=== PATIENT | female | born 1950 | race Caucasian/White ===

== ENCOUNTER 2021-05-06 07:41 | Inpatient (IN) ==
--- NOTE | 2021-05-06 08:11 | Emergency Department Note ---
History of Present Illness General Chief complaint: Altered Mental Status Stated complaint: MENTAL STATUS CHANGES Time Seen by Provider: 05/06/21 07:45 Source: patient Mode of arrival: ambulatory Limitations: no limitations History of Present Illness Provider complaint: Altered mental status This is a 70-year-old female who presents to the ED with a chief complaint of alteration in mental status. The patient comes from [facility]. She reportedly was sent there after being discharged from [facility] for weakness and sepsis secondary to cholangitis. The patient according to the notes was having increased difficulty with swallowing thin liquids the past couple of days. She has had increased confusion according to the family over the weekend, per the nurses notes from [facility]. I did spoke with Dr. Irizarry this morning about the patient. He reports that the patient is normally verbal but was moaning this morning. Seems disoriented. Has a history of COPD. Was to have an ERCP today at [facility]. The patient has not been on her aspirin or Plavix the past day because of the procedure. The patient also has been n.p.o. for her procedure. No additional reports. Patient is unable to provide any additional information as she attempts to talk but is unable to clearly communicate. Home Medications Medication Instructions Recorded Confirmed Type nitroglycerin 0.4 mg sublingual 0.4 mg SL Q5M PRN #25 tab 07/25/19 05/06/21 Rx tablet calcium carbonate 600 mg(1,500 1 tab PO BID #60 tab 08/17/19 05/06/21 Rx mg)-vitamin D3 800 unit chewable tablet albuterol sulfate 90 mcg/actuation 2 puffs INH Q6H PRN 09/22/19 05/06/21 History aerosol inhaler azelastine 137 mcg (0.1 %) nasal 2 sprays INTNAS BID #30 ml 09/22/19 05/06/21 Rx spray aerosol folic acid 1 mg tablet 2 mg PO DAILY #60 tab 02/20/20 05/06/21 Rx bupropion HCl 150 mg 24 hr tablet, See Rx Instructions .ROUTE 04/02/20 05/06/21 Rx extended release .COMPLEX #60 tab ammonium lactate 12 % lotion 1 applic TOPICAL BID PRN #226 g 07/29/20 05/06/21 Rx oxcarbazepine 150 mg tablet 300 mg PO BID #120 tab 10/21/20 05/06/21 Rx ergocalciferol (vitamin D2) 1,250 50,000 unit PO WEEKLY #4 cap 03/10/21 05/06/21 Rx mcg (50,000 unit) capsule clotrimazole 1 % topical cream 1 applic TOPICAL BID #30 g 03/26/21 05/06/21 Rx mupirocin 2 % topical ointment 1 applic TOPICAL BID #22 g 03/26/21 05/06/21 Rx Dextrose 50% 50ml Iv 50 ml IV UD 05/06/21 05/06/21 History amlodipine 2.5 mg PO QAM 05/06/21 05/06/21 History atenolol 25 mg PO QAM 05/06/21 05/06/21 History atorvastatin 80 mg PO HS 05/06/21 05/06/21 History benzonatate 100 mg PO TID PRN 05/06/21 05/06/21 History cyanocobalamin (vitamin B-12) 1,000 mcg PO QAM 05/06/21 05/06/21 History docusate sodium 100 mg PO BID 05/06/21 05/06/21 History famotidine 10 mg PO QAM 05/06/21 05/06/21 History fluticasone propionate [Allergy 2 sprays INTNAS QAM 05/06/21 05/06/21 History Relief (fluticasone)] sawnilflgnk-wdmedajkd-jubpyqot 1 inh INHALATION QAM 05/06/21 05/06/21 History [Trelegy Ellipta] gabapentin [Neurontin] 300 mg PO Q12 05/06/21 05/06/21 History insulin regular human [Humulin R 1 sliding scale dose SUBCUT 05/06/21 05/06/21 History Regular U-100 Insuln] USEASDIRECTD lisinopril 10 mg PO QAM 05/06/21 05/06/21 History loratadine 10 mg PO QAM 05/06/21 05/06/21 History mecobal-levomefolat Ca-B6 phos 1 tab PO QAM 05/06/21 05/06/21 History [Foltanx] pantoprazole 40 mg PO DAILYBB 05/06/21 05/06/21 History sennosides-docusate sodium 1 tab-cap PO QDL PRN 05/06/21 05/06/21 History [Senokot-S] zinc oxide 1 applic TOPICAL BID 05/06/21 05/06/21 History Allergies Allergy/AdvReac Type Severity Reaction Status Date / Time carbamazepine [From Tegretol] AdvReac sleepy anf Verified 05/06/21 08:20 floaty Past Med/Surg History Medical History Acquired claw toe of left foot Acquired hallux valgus of right foot Atherosclerotic peripheral vascular disease Benign essential hypertension Carotid artery narrowing Diabetes mellitus with diabetic polyneuropathy Diastolic dysfunction Esophageal reflux Familial hypercholesterolemia Hallux valgus (acquired), left foot History of esophageal reflux HTN (hypertension) Hypercholesterolemia Myocardial infarction Neuropathy Osteopenia Osteoporosis, postmenopausal PAD (peripheral artery disease) Stage 3 chronic kidney disease Stage 3 chronic kidney disease due to benign hypertension Vitamin B12 deficiency Vitamin D deficiency Surgical History History of arterial bypass of lower extremity History of cardiac cath History of esophagogastroduodenoscopy (EGD) Family History Other No pertinent family history Social History Smoking Status: Unknown if ever smoked Age Started Using Tobacco: 17; Second Hand Exposure: Yes; Hx Alcohol Use: No Hx Substance Use: No Preferred Language: Divehi Communication Ability: Effective Mercury Purifier Required: No Beliefs That Will Affect Care: None marital status: Current Living Situation Comment: Lives with spouse and grandaughter current occupational status: retired Feels Safe at Home: Yes Dental Care, Regularly: No Physical Activity Frequency: Does not Exercise Seatbelt Use: sometimes Sunscreen Use: No (Not outside much) Assistive Devices: Denture - Upper, Denture - Lower, Glasses and Walker Review of Systems Unobtainable due to cognitive status Physical Exam Vital Signs Vital Signs - 24 hr 05/06/21 07:49 05/06/21 08:00 05/06/21 08:13 Temperature 36.8 C Temperature Source Oral Pulse Rate 39 L 63 Pulse Rate from SpO2 Sensor 82 62 Respiratory Rate 20 20 30 H Respiratory Pattern Tachypnea Blood Pressure 84/73 L 87/69 L 87/69 L Blood Pressure Mean 76 75 75 Blood Pressure Position Lying Pulse Oximetry 91 95 96 Oxygen Delivery Method Room Air Sepsis Recent Fever Within 48 Hours No Sepsis New/Unexplained Change in Mental Status Yes Sepsis Action Taken by Nursing Physician Notified 05/06/21 08:30 05/06/21 09:00 05/06/21 09:27 Temperature Temperature Source Pulse Rate 93 H 76 Pulse Rate from SpO2 Sensor 67 66 67 Respiratory Rate 23 22 26 H Respiratory Pattern Blood Pressure 105/52 L Blood Pressure Mean 69 Blood Pressure Position Pulse Oximetry 96 100 96 Oxygen Delivery Method Sepsis Recent Fever Within 48 Hours Sepsis New/Unexplained Change in Mental Status Sepsis Action Taken by Nursing 05/06/21 09:30 Temperature Temperature Source Pulse Rate 96 H Pulse Rate from SpO2 Sensor 69 Respiratory Rate 36 H Respiratory Pattern Blood Pressure 91/65 L Blood Pressure Mean 73 Blood Pressure Position Pulse Oximetry 96 Oxygen Delivery Method Sepsis Recent Fever Within 48 Hours Sepsis New/Unexplained Change in Mental Status Sepsis Action Taken by Nursing CONSTITUTIONAL/VITAL SIGNS: Reviewed / noted above. GENERAL: Non-toxic in appearance. INTEGUMENTARY: Warm, dry, and [place]. HEAD: Normocephalic. EYES: without scleral icterus or trauma. ENT/OROPHARYNX: clear and dry. LYMPHADENOPATHY/NECK: Is supple without lymphadenopathy or meningismus. RESPIRATORY: Lungs clear and slightly diminished. CARDIOVASCULAR: Regular rate and rhythm. GI/ABDOMEN: Soft and nontender. No organomegaly or pulsatile mass. No rebound or guarding. Normal bowel sounds. EXTREMITIES: Warm and well perfused. Pedal edema. NEUROLOGICAL: The patient appears to be chronically bedbound. Does not follow commands. Opens her eyes spontaneously. Attempts to talk but her speech sounds garbled/mumbles. Patient was noticed to move her arms at times but not on command. MUSCULOSKELETAL: Normally developed with good muscle tone. TRIAGE NURSING DOCUMENTATION REVIEWED. Course Administered Medications Dextrose (D10w) 1,000 mls @ 50 mls/hr IV .Q20H [facility] Stop: 06/05/21 09:29 Last Admin: 05/06/21 09:31 Dose: 50 mls/hr Documented by: [id number] Discontinued Medications Sodium Chloride (Nss) 500 mls @ 999 mls/hr IV .Q31M [facility] Stop: 05/06/21 08:45 Last Infusion: 05/06/21 08:41 Dose: 0 mls/hr Documented by: [id number] Admin: 05/06/21 08:00 Dose: 999 mls/hr Documented by: [id number] Cefepime HCl (Maxipime) 2,000 mg in 20 mls @ 5 mls/min IV NOW STA; Protocol Stop: 05/06/21 09:42 Last Admin: 05/06/21 09:45 Dose: 5 mls/min Documented by: [id number] Medical Decision Making Differential Diagnosis Differential includes acute coronary syndrome, myocardial infarction, CVA, TIA, anemia, infection, pneumonia, UTI, pyelonephritis, poor nutrition, dehydration, electrolyte disturbance,hypoglycemia. Medical Records Attestation: I reviewed the patient's medical records. Home Medications Current Medication List: was personally reviewed by me Laboratory Data Attestation: I reviewed the patient's lab results. Result diagrams: 05/06/21 08:17 05/06/21 08:17 Lab Results 05/06/21 05/06/21 05/06/21 Range/Units 08:14 08:17 08:17 WBC 9.24 (4.8-10.8) K/uL RBC 2.37 L (4.2-5.4) M/uL Hgb 8.0 L (12.0-16.0) g/dL Hct 24.3 L (37-47) % MCV 102.5 H (80-100) fL MCH 33.8 (25-34) pg MCHC 32.9 (32-36) g/dL RDW Std Deviation 55.3 H (36.4-46.3) fL RDW Coeff of Allyson 15.0 H (11.5-14.5) % Plt Count 219 (130-400) K/uL MPV 10.3 (7.4-10.4) fL Immature Gran % (Auto) 0.3 % Neut % (Auto) 72.5 % Lymph % (Auto) 13.2 % [place] % (Auto) 12.1 % Eos % (Auto) 1.7 % Baso % (Auto) 0.2 % Neut # (Auto) 6.69 H (1.4-6.5) K/uL Lymph # (Auto) 1.22 (1.2-3.4) K/uL [place] # (Auto) 1.12 H (0.11-0.59) K/uL Eos # (Auto) 0.16 (0-0.5) K/uL Baso # (Auto) 0.02 (0-0.2) K/uL Immature Gran # (Auto) 0.03 H (0.00-0.02) K/uL Sodium 136 (136-145) mmol/L Potassium 4.8 (3.5-5.1) mmol/L Chloride 106 (98-107) mmol/L Carbon Dioxide 23 (21-32) mmol/L Anion Gap 7.0 (3-11) BUN 32 H (7-18) mg/dl Creatinine 2.25 H (0.6-1.2) mg/dl Est Cr Clr Drug Dosing 19.2 ml/min Est GFR ( Amer) 24.6 ml/min Est GFR (Non-Af Amer) 21.2 ml/min BUN/Creatinine Ratio 14.4 (10-20) Glucose 59 L (70-99) mg/dl POC Glucose 67 L* (70-99) mg/dl Lactate (0.4-2.0) mmol/L Calcium 8.4 L (8.5-10.1) mg/dl Magnesium 2.6 H (1.8-2.4) mg/dl Total Bilirubin 1.1 H (0.2-1) mg/dl AST 51 H (15-37) U/L ALT 25 (12-78) U/L Alkaline Phosphatase 89 (45-117) U/L Total Creatine Kinase 478 H (26-192) U/L Troponin I < 0.015 (0-0.045) ng/ml Total Protein 6.3 L (6.4-8.2) gm/dl Albumin 2.1 L (3.4-5.0) gm/dl Globulin 4.2 H (2.5-4.0) gm/dl Albumin/Globulin Ratio 0.5 L (0.9-2) Procalcitonin (0-0.5) ng/ml TSH 1.070 (0.300-4.500) uIu/ml Urine Color Urine Appearance (Clear) Urine pH (4.5-7.5) Ur Specific [place] (1.000-1.030) Urine Protein (Negative) Urine Glucose (UA) (Negative) Urine Ketones (Negative) Urine Blood (Negative) Urine Nitrite (Negative) Urine Bilirubin (Negative) Urine Urobilinogen (Negative) Ur Leukocyte Esterase (Negative) Urine WBC (Auto) (0-5) /hpf Urine RBC (Auto) (0-4) /hpf U Hyaline Cast (Auto) (0-5) /lpf U Epithel Cells (Auto) (0-5) /lpf Urine Bacteria (Auto) (Negative) COVID-19 Eval Order SARS-CoV-2 (PCR) (Negative) 05/06/21 05/06/21 05/06/21 Range/Units 08:28 08:32 09:08 WBC (4.8-10.8) K/uL RBC (4.2-5.4) M/uL Hgb (12.0-16.0) g/dL Hct (37-47) % MCV (80-100) fL MCH (25-34) pg MCHC (32-36) g/dL RDW Std Deviation (36.4-46.3) fL RDW Coeff of Allyson (11.5-14.5) % Plt Count (130-400) K/uL MPV (7.4-10.4) fL Immature Gran % (Auto) % Neut % (Auto) % Lymph % (Auto) % [place] % (Auto) % Eos % (Auto) % Baso % (Auto) % Neut # (Auto) (1.4-6.5) K/uL Lymph # (Auto) (1.2-3.4) K/uL [place] # (Auto) (0.11-0.59) K/uL Eos # (Auto) (0-0.5) K/uL Baso # (Auto) (0-0.2) K/uL Immature Gran # (Auto) (0.00-0.02) K/uL Sodium (136-145) mmol/L Potassium (3.5-5.1) mmol/L Chloride (98-107) mmol/L Carbon Dioxide (21-32) mmol/L Anion Gap (3-11) BUN (7-18) mg/dl Creatinine (0.6-1.2) mg/dl Est Cr Clr Drug Dosing ml/min Est GFR ( Amer) ml/min Est GFR (Non-Af Amer) ml/min BUN/Creatinine Ratio (10-20) Glucose (70-99) mg/dl POC Glucose (70-99) mg/dl Lactate 1.5 (0.4-2.0) mmol/L Calcium (8.5-10.1) mg/dl Magnesium (1.8-2.4) mg/dl Total Bilirubin (0.2-1) mg/dl AST (15-37) U/L ALT (12-78) U/L Alkaline Phosphatase (45-117) U/L Total Creatine Kinase (26-192) U/L Troponin I (0-0.045) ng/ml Total Protein (6.4-8.2) gm/dl Albumin (3.4-5.0) gm/dl Globulin (2.5-4.0) gm/dl Albumin/Globulin Ratio (0.9-2) Procalcitonin 0.27 (0-0.5) ng/ml TSH (0.300-4.500) uIu/ml Urine Color Dark Yellow Urine Appearance Cloudy A (Clear) Urine pH 5.0 (4.5-7.5) Ur Specific [place] 1.015 (1.000-1.030) Urine Protein Negative (Negative) Urine Glucose (UA) Negative (Negative) Urine Ketones Negative (Negative) Urine Blood Negative (Negative) Urine Nitrite Negative (Negative) Urine Bilirubin Negative (Negative) Urine Urobilinogen Negative (Negative) Ur Leukocyte Esterase 1+ H (Negative) Urine WBC (Auto) >30 H (0-5) /hpf Urine RBC (Auto) 0-4 (0-4) /hpf U Hyaline Cast (Auto) 1-5 (0-5) /lpf U Epithel Cells (Auto) >30 H (0-5) /lpf Urine Bacteria (Auto) 4+ H (Negative) COVID-19 Eval Order SARS-CoV-2 (PCR) (Negative) 05/06/21 05/06/21 Range/Units 09:20 09:20 WBC (4.8-10.8) K/uL RBC (4.2-5.4) M/uL Hgb (12.0-16.0) g/dL Hct (37-47) % MCV (80-100) fL MCH (25-34) pg MCHC (32-36) g/dL RDW Std Deviation (36.4-46.3) fL RDW Coeff of Allyson (11.5-14.5) % Plt Count (130-400) K/uL MPV (7.4-10.4) fL Immature Gran % (Auto) % Neut % (Auto) % Lymph % (Auto) % [place] % (Auto) % Eos % (Auto) % Baso % (Auto) % Neut # (Auto) (1.4-6.5) K/uL Lymph # (Auto) (1.2-3.4) K/uL [place] # (Auto) (0.11-0.59) K/uL Eos # (Auto) (0-0.5) K/uL Baso # (Auto) (0-0.2) K/uL Immature Gran # (Auto) (0.00-0.02) K/uL Sodium (136-145) mmol/L Potassium (3.5-5.1) mmol/L Chloride (98-107) mmol/L Carbon Dioxide (21-32) mmol/L Anion Gap (3-11) BUN (7-18) mg/dl Creatinine (0.6-1.2) mg/dl Est Cr Clr Drug Dosing ml/min Est GFR ( Amer) ml/min Est GFR (Non-Af Amer) ml/min BUN/Creatinine Ratio (10-20) Glucose (70-99) mg/dl POC Glucose (70-99) mg/dl Lactate (0.4-2.0) mmol/L Calcium (8.5-10.1) mg/dl Magnesium (1.8-2.4) mg/dl Total Bilirubin (0.2-1) mg/dl AST (15-37) U/L ALT (12-78) U/L Alkaline Phosphatase (45-117) U/L Total Creatine Kinase (26-192) U/L Troponin I (0-0.045) ng/ml Total Protein (6.4-8.2) gm/dl Albumin (3.4-5.0) gm/dl Globulin (2.5-4.0) gm/dl Albumin/Globulin Ratio (0.9-2) Procalcitonin (0-0.5) ng/ml TSH (0.300-4.500) uIu/ml Urine Color Urine Appearance (Clear) Urine pH (4.5-7.5) Ur Specific [place] (1.000-1.030) Urine Protein (Negative) Urine Glucose (UA) (Negative) Urine Ketones (Negative) Urine Blood (Negative) Urine Nitrite (Negative) Urine Bilirubin (Negative) Urine Urobilinogen (Negative) Ur Leukocyte Esterase (Negative) Urine WBC (Auto) (0-5) /hpf Urine RBC (Auto) (0-4) /hpf U Hyaline Cast (Auto) (0-5) /lpf U Epithel Cells (Auto) (0-5) /lpf Urine Bacteria (Auto) (Negative) COVID-19 Eval Order Covid19 at [facility] SARS-CoV-2 (PCR) NEGATIVE (Negative) Imaging Data Attestation: I personally reviewed and interpreted this imaging study as follows: Radiologist's Impression: Chest X-Ray 05/06/21 08:04 SINGLE VIEW CHEST CLINICAL HISTORY: Generalized weakness. FINDINGS: An AP, portable, upright chest radiograph is obtained. No prior studies are available for comparison at the time of dictation. The examination is degraded by portable technique and patient rotation. The heart is mildly enlarged noting atherosclerotic calcification of the thoracic aorta. There is pulmonary vascular congestion. Bilateral interstitial opacities likely represent pulmonary edema. Trace pleural effusions are suspected. No pneumothorax is seen. The skeletal structures are osteopenic. The bony thorax is grossly intact. IMPRESSION: 1. Cardiomegaly with evidence of congestive failure. 2. Bilateral interstitial airspace opacities likely represent pulmonary edema. Correlate clinically for invasive a superimposed infectious/inflammatory pneu monitis. Radiographic follow-up to resolution is recommended. ACT 112: Negative or not required by law. Electronically signed by: Bossman Ibarra M.D. 05/06/2021 8:[address] 05/06/21 08:04 CT head/brain wo con CLINICAL HISTORY: weakness ACUTE CHANGE IN MENTAL STATUS COMPARISON STUDY: No previous studies for comparison. TECHNIQUE: Axial CT of the brain is performed from the vertex to the skull base. IV contrast was not administered for this examination. A dose lowering technique was utilized adhering to the principles of ALARA. CT DOSE: 614.27 mGy.cm FINDINGS: No intra or extra-axial mass lesions are visualized. There is no CT evidence of acute cortical infarction. There is no evidence of midline shift. There is no acute hemorrhage. No calvarial fractures are visualized. There are patchy white matter hypodensities likely on a small vessel basis. These are most pronounced adjacent the anterior horn right lateral ventricle. There is a tiny lacunar infarct within the right basal ganglia, an equivocal tiny lacunar infarct within the left basal ganglia There is no significant hydrocephalus. Mild ventricular asymmetry is likely developmental. There is no evidence of acute sinusitis IMPRESSION: No acute intracranial findings ACT 112: Negative or not required by law. Electronically signed by: Saran Padilla M.D. 05/06/2021 9:43 AM ECG Data Attestation: I personally reviewed and interpreted this ECG as follows: Indication: + weakness Rate (beats per minute): 75 Rhythm: + normal sinus ECG Intervals/blocks: + Normal QT-c ECG ST segments: no ST elevation ECG Findings: no PVCs MDM Narrative Patient presents with an altered mental status. Baseline is unclear. Patient has difficulty swallowing according to the [facility] notes. She has had altered mental status since this past weekend according to family. The patient is unable to verbalize today. She attempts to talk but she mumbles. She has the ability to move her arms independently but does not follow commands. She has some edema in her legs. Abdomen is soft and nontender. Tongue was dry on exam. The patient's hemoglobin today is 8. It was 9 a couple of days ago. Guaiac testing of the patient's stool was guaiac negative. The patient's BUN is 32 and the creatinine is 2.25. This is up from 1.38 on her previous labs here. The patient's blood sugar was dropping during her ED stay. She has been n.p.o. since last night due to the EGD she was supposed to have today. She was started on some D10. Covid test was negative. CT scan of the brain was negative for acute disease. Troponin was negative. Chest x-ray reveals pneumonia versus heart failure. Urine appears to be contaminated with questionable infection. The patient was given IV fluids 1 L here. She was also given IV cefepime. Chest x-ray was suggestive of congestive heart failure although clinically I do not feel the patient was in pulmonary edema. I did speak with the with regards to the patient's speech. He was here in the emergency department. He states that this has been going on for weeks that she is mumbling when she speaks. He states that she even had an evaluation with regards to her speech and nothing was found. Patient will require further inpatient evaluation and care for her anemia and acute kidney injury as well as possible urinary infection. Lactic acid level is negative. Impression & Plan Anemia, Acute kidney injury, Acute UTI, Pneumonia Discharge Plan Visit Data Chief Complaint: Altered Mental Status Stated Complaint: MENTAL STATUS CHANGES ED Provider: Chintan Yoon Discharge Problem: Anemia, Acute kidney injury, Acute UTI, Pneumonia Patient Disposition: Being Evaluated by Hospitalist Forms Stand Alone Forms: [facility], Virtual Emergency Department, Important Visit Information Prescriptions Prescriptions: No Action Caltrate 600 plus D 600 mg (1,500 mg)-800 unit tablet,chewable 1 tab PO BID Qty: 60 RF: 5 folic acid 1 mg tablet 2 mg PO DAILY Qty: 60 RF: 2 ergocalciferol (vitamin D2) 1,250 mcg (50,000 unit) capsule 50,000 unit PO WEEKLY Qty: 4 RF: 1 mupirocin 2 % ointment 1 applic topical BID Qty: 22 RF: 0 clotrimazole 1 % cream 1 applic topical BID Qty: 30 RF: 1 albuterol sulfate 90 mcg/actuation HFA aerosol inhaler 2 puffs INH Q6H PRN (Reason: Shortness Of Breath) RF: 0 azelastine 137 mcg (0.1 %) aerosol,spray 2 sprays INTNAS BID Qty: 30 RF: 2 ammonium lactate 12 % lotion 1 applic topical BID PRN (Reason: dry skin) Qty: 226 RF: 7 bupropion HCl 150 mg tablet extended release 24 hr See Rx Instructions .ROUTE .COMPLEX Qty: 60 RF: 2 nitroglycerin 0.4 mg tablet, sublingual 0.4 mg SL Q5M PRN (Reason: chest pain) Qty: 25 RF: 5 oxcarbazepine [Trileptal] 150 mg tablet 300 mg PO BID Qty: 120 RF: 2 famotidine 10 mg Tablet 10 mg PO QAM RF: 0 sennosides-docusate sodium [Senokot-S] 8.6-50 mg Tablet 1 tab-cap PO QDL PRN (Reason: Constipation) RF: 0 zinc oxide 20 % Ointment 1 applic TOPICAL BID RF: 0 benzonatate 100 mg Capsule 100 mg PO TID PRN (Reason: Cough) RF: 0 pantoprazole 40 mg Tablet,Delayed Release (Dr/Ec) 40 mg PO DAILYBB RF: 0 Humulin R Regular U-100 Insuln 100 unit/mL Solution 1 sliding scale dose SUBCUT USEASDIRECTD RF: 0 docusate sodium 100 mg Capsule 100 mg PO BID RF: 0 gabapentin [Neurontin] 300 mg capsule 300 mg PO Q12 RF: 0 loratadine 10 mg Tablet 10 mg PO QAM RF: 0 Foltanx 3-35-2 mg Tablet 1 tab PO QAM RF: 0 Trelegy Ellipta 100-62.5-25 mcg Blister With Device 1 inh INHALATION QAM RF: 0 Dextrose 50% 50ml Iv solution 50 ml IV UD RF: 0 atorvastatin 80 mg tablet 80 mg PO HS RF: 0 cyanocobalamin (vitamin B-12) 1,000 mcg tablet 1,000 mcg PO QAM RF: 0 amlodipine 2.5 mg tablet 2.5 mg PO QAM RF: 0 lisinopril 10 mg tablet 10 mg PO QAM RF: 0 fluticasone propionate [Allergy Relief (fluticasone)] 50 mcg/actuation spray,suspension 2 sprays INTNAS QAM RF: 0 atenolol 50 mg tablet 25 mg PO QAM RF: 0 Referrals Referrals: [facility] [Primary Care Provider] -
[2021-05-06] MEDS ORDERED: SODIUM CHLORIDE 0.9% 500 ML IV SCH (08:15)
[2021-05-06 08:37] LABS: Basophils # (auto) 0.02 K/uL (0-0.2); Basophils % (auto) 0.2 %; Eosinophils # (auto) 0.16 K/uL (0-0.5); Eosinophils % (auto) 1.7 %; Hematocrit (blood only) 24.3 % (37-47); Immature Granulocytes # (auto) 0.03 K/uL (0.00-0.02); Immature Granulocytes % (auto) 0.3 %; Lymphocytes # (auto) 1.22 K/uL (1.2-3.4); Lymphocytes % (auto) 13.2 %; Mean Corpuscular Hemoglobin 33.8 pg (25-34); Mean Corpuscular Hgb Conc 32.9 g/dL (32-36); Mean Corpuscular Volume 102.5 fL (80-100); Mean Platelet Volume 10.3 fL (7.4-10.4); Monocytes # (auto) 1.12 K/uL (0.11-0.59); Monocytes % (auto) 12.1 %; Neutrophils # (auto) 6.69 K/uL (1.4-6.5); Neutrophils % (auto) 72.5 %; Platelet Count 219 K/uL (130-400); RDW Standard Deviation 55.3 fL (36.4-46.3); Red Blood Count 2.37 M/uL (4.2-5.4); White Blood Count 9.24 K/uL (4.8-10.8)
[2021-05-06 08:56] LABS: Alanine Aminotransferase 25 U/L (12-78); Albumin Level 2.1 gm/dl (3.4-5.0); Aspartate Aminotransferase 51 U/L (15-37); BUN Creatinine Ratio 14.4 (10-20); Blood Urea Nitrogen 32 mg/dl (7-18); Calcium 8.4 mg/dl (8.5-10.1); Carbon Dioxide 23 mmol/L (21-32); Chloride 106 mmol/L (98-107); Creatinine Clr Calc Pharmacy 19.2 ml/min; Est GFR (African American) 24.6 ml/min; Est GFR (Non-African American) 21.2 ml/min; Glucose 59 mg/dl (70-99); Magnesium 2.6 mg/dl (1.8-2.4); Potassium 4.8 mmol/L (3.5-5.1); Sodium 136 mmol/L (136-145)
--- NOTE | 2021-05-06 09:00 | XRay Report ---
SINGLE VIEW CHEST CLINICAL HISTORY: Generalized weakness. FINDINGS: An AP, portable, upright chest radiograph is obtained. No prior studies are available for c omparison at the time of dictation. The examination is degraded by portable technique and patient rot ation. The heart is mildly enlarged noting atherosclerotic calcification of the thoracic aorta. Ther e is pulmonary vascular congestion. Bilateral interstitial opacities likely represent pulmonary edema . Trace pleural effusions are suspected. No pneumothorax is seen. The skeletal structures are osteope juwan. The bony thorax is grossly intact. IMPRESSION: 1. Cardiomegaly with evidence of congestive failure. 2. Bilateral interstitial airspace opacities likely represent pulmonary edema. Correlate clinically f or invasive a superimposed infectious/inflammatory pneumonitis. Radiographic follow-up to resolution is recommended. ACT 112: Negative or not required by law. Electronically signed by: Bossman Ibarra M.D. 05/06/2021 8:58 AM
[2021-05-06 09:07] LABS: Albumin Globulin Ratio 0.5 (0.9-2); Alkaline Phosphatase 89 U/L (45-117); Bilirubin,Total 1.1 mg/dl (0.2-1); Creatine Kinase 478 U/L (26-192); Globulin 4.2 gm/dl (2.5-4.0); Total Protein 6.3 gm/dl (6.4-8.2); Troponin I < 0.015 ng/ml (0-0.045)
[2021-05-06 09:25] LABS: Appearance Urine Cloudy (Clear); Bacteria Urine Automated 4+ (Negative); Bilirubin Urine Negative (Negative); Blood Urine Negative (Negative); Color Urine Dark Yellow; Epithelial Cell Urine Auto >30 /lpf (0-5); Glucose Urine UA Negative (Negative); Ketones Urine Negative (Negative); Leukocyte Esterase Urine 1+ (Negative); Nitrite Urine Negative (Negative); Protein Urine Negative (Negative); RBC Urine Automated 0-4 /hpf (0-4); Specific Gravity Urine 1.015 (1.000-1.030); Urobilinogen Urine Negative (Negative); WBC Urine Automated >30 /hpf (0-5)
[2021-05-06] MEDS ORDERED: DEXTROSE 10% 1,000 ML IV SCH (09:30)
[2021-05-06] MEDS ORDERED: CEFEPIME 2,000 MG/20 ML VIAL IV STA (09:39)
--- NOTE | 2021-05-06 09:44 | CT Scan Report ---
CT head/brain wo con CLINICAL HISTORY: weakness ACUTE CHANGE IN MENTAL STATUS COMPARISON STUDY: No previous studies for comparison. TECHNIQUE: Axial CT of the brain is performed from the vertex to the skull base. IV contrast was not administered for this examination. A dose lowering technique was utilized adhering to the principles of ALARA. CT DOSE: 614.27 mGy.cm FINDINGS: No intra or extra-axial mass lesions are visualized. There is no CT evidence of acute cortical infarc tion. There is no evidence of midline shift. There is no acute hemorrhage. No calvarial fractures ar e visualized. There are patchy white matter hypodensities likely on a small vessel basis. These are most pronounced adjacent the anterior horn right lateral ventricle. There is a tiny lacunar infarct within the right basal ganglia, an equivocal tiny lacunar infarct within the left basal ganglia There is no significant hydrocephalus. Mild ventricular asymmetry is likely developmental. There is no evidence of acute sinusitis IMPRESSION: No acute intracranial findings ACT 112: Negative or not required by law. Electronically signed by: Saran Padilla M.D. 05/06/2021 9:43 AM
--- NOTE | 2021-05-06 11:26 | History & Physical Report ---
Date of Service May 06, 2021 Assessment & Plan (1) Altered mental status: Suspect this is multifactorial as there are multiple other medical issues present that would contribute to this For now, admit to a monitored bed CT scan negative, will check MRI of brain Further treatment as outlined below (2) Pneumonia: Chest x-ray showing bilateral airspace opacities, they suggested that this may be pulmonary edema. However, patient has reported dysphagia with recent procedure, aspiration pneumonia certainly concern I will start antibiotics with Zosyn considering patient's recent healthcare exposures. I will hold off on Vanco for now as MRSA seems less likely and the patient has significant renal insufficiency Sputum culture if possible (3) UTI (urinary tract infection): Patient does have heavily sedimented urine in her Nye Continue hydration with normal saline as outlined Zosyn as noted above, await urine culture results (4) Dysphagia: Patient has recent ERCP with stent placement. Reported that time notes narrowing in the lower third of the main bile duct that was concerning for possible underlying neoplasm Will keep n.p.o. for now Check CT of the chest, abdomen, and pelvis If negative for anatomical issue that would prevent swallowing, can consider speech evaluation and a video swallow depending on the recommendations Some records from [facility] available in our system, will ask for full records to be sent for review (5) Diabetes mellitus with diabetic polyneuropathy: Patient hypoglycemic during her evaluation in ER, may be contribute to her confusion Will place patient on a low sliding scale only for now Keep n.p.o. secondary to reported dysphagia We will hydrate with D5NS, monitor blood sugars (6) Acute kidney injury: May be secondary to prerenal azotemia/dehydration Normal saline infusion as noted above Treatment of urinary tract infection as noted above Hold nephrotoxins, patient was on low-dose lisinopril prior to admission Maintain Nye for now (7) Benign essential hypertension: Hypotensive, IV fluids as above. We will hold off on oral antihypertensives for now History of Present Illness Chief Complaint: Confusion, dysphagia Primary Care Provider: Khalida, [facility] This is a 70-year-old female with past medical history of recent cholangitis, discharged from [facility] that presents today with confusion and dysphagia. Patient cannot provide any history. at bedside and is very pleasant but has limited insight in the patient's medical problems. tells me that the patient was the patient had a [facility] on . At that time she had been admitted with severe sepsis, found to have E. coli/Klebsiella bacteremia. Patient received a full course of Rocephin. At that time, patient had a reported coffee-ground emesis. Work-up for this included an ERCP performed in 04/23, I recommended an EUS approximate 2 weeks after the procedure. There documentation notes some "abnormal cells ". Patient was subsequent discharged home. tells me that the patient was home on 04/28 but had 2 episodes of falls that day. She did seem to be mildly confused at that time. He called EMS but the patient refused to be transported to the hospital at that time. She spent the night sitting on the couch. The next day she told her showed she did in fact need to go to the hospital. At that time, she was transferred to [facility] for rehab. I do not have any documentation of that ER visit I suspect it was not our facility. Patient was being treated at [facility]. Her EUS was scheduled for today and she was kept n.p.o. the night before. The physician at [facility] noted that the patient seemed more confused. Her speech was garbled which she felt was a new finding, although the tells me that her speech has been gradually worsening since her fall with EMS as described above. In addition, she had trouble swallowing any food or liquids over the past 2 days. Because of her multiple medical issues, it was decided the US will be held and the patient be transported to our facility for further evaluation. At our hospital, she was found to be of very confused. She is alert and she does speak and gesture, but she does not follow commands and she is unintelligible. On work-up, she was found to be mildly hypotensive with a blood pressure in the high 90s. She was hypoglycemic, likely secondary to her n.p.o. status for this procedure. There is also question of UTI versus possible pneumonia on imaging. CT scan of the brain was normal. Patient is now being admitted for further work-up and treatment of her multiple medical problems. Allergies Allergy/AdvReac Type Severity Reaction Status Date / Time carbamazepine [From Tegretol] AdvReac sleepy anf Verified 05/06/21 08:20 floaty Home Medications Medication Instructions Recorded Confirmed Type nitroglycerin 0.4 mg sublingual 0.4 mg SL Q5M PRN #25 tab 07/25/19 05/06/21 Rx tablet calcium carbonate 600 mg(1,500 1 tab PO BID #60 tab 08/17/19 05/06/21 Rx mg)-vitamin D3 800 unit chewable tablet albuterol sulfate 90 mcg/actuation 2 puffs INH Q6H PRN 09/22/19 05/06/21 History aerosol inhaler azelastine 137 mcg (0.1 %) nasal 2 sprays INTNAS BID #30 ml 09/22/19 05/06/21 Rx spray aerosol folic acid 1 mg tablet 2 mg PO DAILY #60 tab 02/20/20 05/06/21 Rx bupropion HCl 150 mg 24 hr tablet, See Rx Instructions .ROUTE 04/02/20 05/06/21 Rx extended release .COMPLEX #60 tab ammonium lactate 12 % lotion 1 applic TOPICAL BID PRN #226 g 07/29/20 05/06/21 Rx oxcarbazepine 150 mg tablet 300 mg PO BID #120 tab 10/21/20 05/06/21 Rx ergocalciferol (vitamin D2) 1,250 50,000 unit PO WEEKLY #4 cap 03/10/21 05/06/21 Rx mcg (50,000 unit) capsule clotrimazole 1 % topical cream 1 applic TOPICAL BID #30 g 03/26/21 05/06/21 Rx mupirocin 2 % topical ointment 1 applic TOPICAL BID #22 g 03/26/21 05/06/21 Rx Dextrose 50% 50ml Iv 50 ml IV UD 05/06/21 05/06/21 History amlodipine 2.5 mg PO QAM 05/06/21 05/06/21 History atenolol 25 mg PO QAM 05/06/21 05/06/21 History atorvastatin 80 mg PO HS 05/06/21 05/06/21 History benzonatate 100 mg PO TID PRN 05/06/21 05/06/21 History cyanocobalamin (vitamin B-12) 1,000 mcg PO QAM 05/06/21 05/06/21 History docusate sodium 100 mg PO BID 05/06/21 05/06/21 History famotidine 10 mg PO QAM 05/06/21 05/06/21 History fluticasone propionate [Allergy 2 sprays INTNAS QAM 05/06/21 05/06/21 History Relief (fluticasone)] [id number]-[id number] 1 inh INHALATION QAM 05/06/21 05/06/21 History [Trelegy Ellipta] gabapentin [Neurontin] 300 mg PO Q12 05/06/21 05/06/21 History insulin regular human [Humulin R 1 sliding scale dose SUBCUT 05/06/21 05/06/21 History Regular U-100 Insuln] USEASDIRECTD lisinopril 10 mg PO QAM 05/06/21 05/06/21 History loratadine 10 mg PO QAM 05/06/21 05/06/21 History mecobal-levomefolat Ca-B6 phos 1 tab PO QAM 05/06/21 05/06/21 History [Foltanx] pantoprazole 40 mg PO DAILYBB 05/06/21 05/06/21 History sennosides-docusate sodium 1 tab-cap PO QDL PRN 05/06/21 05/06/21 History [Senokot-S] zinc oxide 1 applic TOPICAL BID 05/06/21 05/06/21 History Past Med/Surg History Medical History Acquired claw toe of left foot Acquired hallux valgus of right foot Atherosclerotic peripheral vascular disease Benign essential hypertension Carotid artery narrowing Diabetes mellitus with diabetic polyneuropathy Diastolic dysfunction Esophageal reflux Familial hypercholesterolemia Hallux valgus (acquired), left foot History of esophageal reflux HTN (hypertension) Hypercholesterolemia Myocardial infarction Neuropathy Osteopenia Osteoporosis, postmenopausal PAD (peripheral artery disease) Stage 3 chronic kidney disease Stage 3 chronic kidney disease due to benign hypertension Vitamin B12 deficiency Vitamin D deficiency Surgical History History of arterial bypass of lower extremity History of cardiac cath History of esophagogastroduodenoscopy (EGD) Family History Other No pertinent family history Social History Smoking Status: Unknown if ever smoked Age Started Using Tobacco: 17; Second Hand Exposure: Yes; Hx Alcohol Use: No Hx Substance Use: No Preferred Language: Frisian Communication Ability: Effective Party Plan Sales Consultant Required: No Beliefs That Will Affect Care: None marital status: Current Living Situation Comment: Lives with spouse and grandaughter current occupational status: retired Feels Safe at Home: Yes Dental Care, Regularly: No Physical Activity Frequency: Does not Exercise Seatbelt Use: sometimes Sunscreen Use: No (Not outside much) Assistive Devices: Denture - Upper, Denture - Lower, Glasses and Walker Review of Systems Review of Systems: Unobtainable due to cognitive status Physical Exam Constitutional: + altered mental status and + frail appearing; no acute distress Verbal and unintelligible Neck: trachea midline, no thyromegaly Respiratory: normal respiratory effort Auscultation: + diminished lung sounds; no crackles, no rales, no rhonchi and no wheezes Limited secondary to vocalization Cardiovascular: Rate/Rhythm: regular rate and regular rhythm Heart Sounds: normal S1 and normal S2 Limited secondary to vocalization Gastrointestinal (Abdomen): Inspection/Auscultation: abdomen normal to inspection and + abdomen distended Percussion/Palpation: abdomen soft; abdomen nontender, no guarding, abdomen not rigid and no hepatosplenomegaly Musculoskeletal: Moving all extremities spontaneously Skin: no rashes, warm and dry Genitourinary: Nye present, heavily sedimented, cloudy yellow urine in bag Results & Data Results & Data ([facility]) Vital Signs (Past 12 Hours) Vital Signs Temp Pulse Resp BP Pulse Ox 05/06/21 09:30 96 H 36 H 91/65 L 96 05/06/21 09:27 76 26 H 105/52 L 96 05/06/21 09:00 22 100 05/06/21 08:30 93 H 23 96 05/06/21 08:13 36.8 C 63 30 H 87/69 L 96 05/06/21 08:00 39 L 20 87/69 L 95 05/06/21 07:49 20 84/[address] L [address] head/brain wo con CLINICAL HISTORY: weakness ACUTE CHANGE IN MENTAL STATUS COMPARISON STUDY: No previous studies for comparison. TECHNIQUE: Axial CT of the brain is performed from the vertex to the skull base. IV contrast was not administered for this examination. A dose lowering technique was utilized adhering to the principles of ALARA. CT DOSE: 614.27 mGy.cm FINDINGS: No intra or extra-axial mass lesions are visualized. There is no CT evidence of acute cortical infarction. There is no evidence of midline shift. There is no acute hemorrhage. No calvarial fractures are visualized. There are patchy white matter hypodensities likely on a small vessel basis. These are most pronounced adjacent the anterior horn right lateral ventricle. There is a tiny lacunar infarct within the right basal ganglia, an equivocal tiny lacunar infarct within the left basal ganglia There is no significant hydrocephalus. Mild ventricular asymmetry is likely developmental. There is no evidence of acute sinusitis IMPRESSION: No acute intracranial findings PG Care Time/CCT Total # of Minutes Spent Total Time Spent with Patient: Total time spent is greater than 50% in coordination of care (as documented) at patient's floor/unit and/or counseling patient: Coding Level of Care Code 83149 Initial Inpt Care Lvl 3 Diagnoses Altered mental status R41.82 Pneumonia J18.9 UTI (urinary tract infection) N39.0 Dysphagia R13.10 Diabetes mellitus with diabetic polyneuropathy E11.42 Acute kidney injury N17.9 Benign essential hypertension I10
[2021-05-06 11:54] LABS: NT Pro B Type Natriuretic Pept 14364 pg/ml (0-900)
[2021-05-06] MEDS ORDERED: SODIUM CHLORIDE 0.9% 1000ML 1,000 ML IV ONE (13:39)
--- NOTE | 2021-05-06 14:01 | Critical Care Consultation ---
Date of Consultation May 06, 2021 Assessment & Plan (1) Severe sepsis: Reason Critically Ill: 70-year-old female with severe sepsis PLAN: Neuro: Acute encephalopathy -Likely metabolic in origin related to sepsis -Unlikely to communicate nutritional needs frail in appearance Elevated ammonia -Consider administration of lactulose Trigeminal neuralgia -Continue oxcarbazepine Resp: Tachypnea -Compensatory CV: Peripheral arterial disease Hyperlipidemia Known carotid stenoses -High-dose statin Hypertension -Atenolol, lisinopril 10 mg Fluids/Renal: Acute on chronic renal failure -Baseline creatinine appears to be around 1.5 -Volume resuscitation ID: Severe sepsis with acute organ dysfunction: Acute kidney injury -Agree with Zosyn GI/Nutrition: Reported biliary mass -Patient had likely been n.p.o. prior to procedure unclear if insulin had been administered Heme: Anemia -Type and screen ordered DVT prophylaxis: Heparin 5000 units every 8 hours Endocrine: Insulin-dependent diabetes mellitus type 2 Hypoglycemia -NG placement would consider trickle feed Vascular access: Peripheral IVs Code Status: DNR/DNI in event of cardiac arrest Disposition: Admit to hospitalist service (2) UTI (urinary tract infection): (3) Diabetes mellitus with diabetic polyneuropathy: (4) Altered mental status: (5) Acute kidney injury: History of Present Illness Reason for Consultation: Severe sepsis and hypotension Requesting Physician: Kahlil Deleon Attending Physician: Kahlil Deleon History of Present Illness Patient is a 70-year-old female with multiple comorbidities including peripheral arterial disease, history of anemia, history of smoking, chronic renal insufficiency, hypertension hypercholesterolemia who presents after being transferred from her acute rehab facility after a subsequent hospitalization associated from a fall with increasing altered mental status. Per the 's report she has been altered for several days. In discussion with hospitalist service the patient had previously been admitted at [facility] for possible urinary sepsis/biliary sepsis symptoms underwent an EGD, she was matute pposed to undergo a EUS for possible pancreatic, biliary lesion she was found today to be hypoglycemic and altered and today was the planned EUS. Discussion with the patient remains altered we discussed long-term prognosis in event of cardiac arrest and he described the patient would not want to situation where she would be placed in intermediate accordingly I feel the chance of good functional outcome in the event of successful resuscitation of cardiac arrest would likely mean intermediate hospitalization and accordingly with joint medical decision-making she will be DNR/DNI in event of cardiac arrest. Patient was hypotensive in the emergency room however she has responded to crystalloid infusion and has been started on broad-spectrum antibiotics her lactate was negative and at this time I believe she has exhibiting signs of severe sepsis and has responded to clinical interventions. Allergies Allergy/AdvReac Type Severity Reaction Status Date / Time carbamazepine [From Tegretol] AdvReac sleepy anf Verified 05/06/21 08:20 floaty Home Medications Medication Instructions Recorded Confirmed Type nitroglycerin 0.4 mg sublingual 0.4 mg SL Q5M PRN #25 tab 07/25/19 05/06/21 Rx tablet calcium carbonate 600 mg(1,500 1 tab PO BID #60 tab 08/17/19 05/06/21 Rx mg)-vitamin D3 800 unit chewable tablet albuterol sulfate 90 mcg/actuation 2 puffs INH Q6H PRN 09/22/19 05/06/21 History aerosol inhaler azelastine 137 mcg (0.1 %) nasal 2 sprays INTNAS BID #30 ml 09/22/19 05/06/21 Rx spray aerosol folic acid 1 mg tablet 2 mg PO DAILY #60 tab 02/20/20 05/06/21 Rx bupropion HCl 150 mg 24 hr tablet, See Rx Instructions .ROUTE 04/02/20 05/06/21 Rx extended release .COMPLEX #60 tab ammonium lactate 12 % lotion 1 applic TOPICAL BID PRN #226 g 07/29/20 05/06/21 Rx oxcarbazepine 150 mg tablet 300 mg PO BID #120 tab 10/21/20 05/06/21 Rx ergocalciferol (vitamin D2) 1,250 50,000 unit PO WEEKLY #4 cap 03/10/21 05/06/21 Rx mcg (50,000 unit) capsule clotrimazole 1 % topical cream 1 applic TOPICAL BID #30 g 03/26/21 05/06/21 Rx mupirocin 2 % topical ointment 1 applic TOPICAL BID #22 g 03/26/21 05/06/21 Rx Dextrose 50% 50ml Iv 50 ml IV UD 05/06/21 05/06/21 History amlodipine 2.5 mg PO QAM 05/06/21 05/06/21 History atenolol 25 mg PO QAM 05/06/21 05/06/21 History atorvastatin 80 mg PO HS 05/06/21 05/06/21 History benzonatate 100 mg PO TID PRN 05/06/21 05/06/21 History cyanocobalamin (vitamin B-12) 1,000 mcg PO QAM 05/06/21 05/06/21 History docusate sodium 100 mg PO BID 05/06/21 05/06/21 History famotidine 10 mg PO QAM 05/06/21 05/06/21 History fluticasone propionate [Allergy 2 sprays INTNAS QAM 05/06/21 05/06/21 History Relief (fluticasone)] [id number] 1 inh INHALATION QAM 05/06/21 05/06/21 History [Trelegy Ellipta] gabapentin [Neurontin] 300 mg PO Q12 05/06/21 05/06/21 History insulin regular human [Humulin R 1 sliding scale dose SUBCUT 05/06/21 05/06/21 History Regular U-100 Insuln] USEASDIRECTD lisinopril 10 mg PO QAM 05/06/21 05/06/21 History loratadine 10 mg PO QAM 05/06/21 05/06/21 History mecobal-levomefolat Ca-B6 phos 1 tab PO QAM 05/06/21 05/06/21 History [Foltanx] pantoprazole 40 mg PO DAILYBB 05/06/21 05/06/21 History sennosides-docusate sodium 1 tab-cap PO QDL PRN 05/06/21 05/06/21 History [Senokot-S] zinc oxide 1 applic TOPICAL BID 05/06/21 05/06/21 History Patient History Medical History Acquired claw toe of left foot Acquired hallux valgus of right foot Atherosclerotic peripheral vascular disease Benign essential hypertension Carotid artery narrowing Diabetes mellitus with diabetic polyneuropathy Diastolic dysfunction Esophageal reflux Familial hypercholesterolemia Hallux valgus (acquired), left foot History of esophageal reflux HTN (hypertension) Hypercholesterolemia Myocardial infarction Neuropathy Osteopenia Osteoporosis, postmenopausal PAD (peripheral artery disease) Stage 3 chronic kidney disease Stage 3 chronic kidney disease due to benign hypertension Vitamin B12 deficiency Vitamin D deficiency Surgical History History of arterial bypass of lower extremity History of cardiac cath History of esophagogastroduodenoscopy (EGD) Family History Other No pertinent family history Social History Smoking Status: Unknown if ever smoked Age Started Using Tobacco: 17; Second Hand Exposure: Yes; Hx Alcohol Use: No Hx Substance Use: No Preferred Language: Argentine Communication Ability: Effective Legal Service Specialist Required: No Beliefs That Will Affect Care: None marital status: Current Living Situation Comment: Lives with spouse and grandaughter current occupational status: retired Feels Safe at Home: Yes Dental Care, Regularly: No Physical Activity Frequency: Does not Exercise Seatbelt Use: sometimes Sunscreen Use: No (Not outside much) Assistive Devices: Denture - Upper, Denture - Lower, Glasses and Walker Review of Systems Review of Systems: Unobtainable due to cognitive status Physical Exam Physical Exam: General: Alert. Disoriented Glascow Coma Scale: Eyes: 4, Verbal 2, Motor 5, Total 11. Skin: Warm, dry, Head: Atraumatic Ears, nose, mouth and throat: airway patent Cardiovascular: Normal peripheral perfusion, tachycardia and irregularly irregular rhythm noted on bedside monitor Respiratory: no respiratory distress, mild tachypnea Gastrointestinal: Non distended Musculoskeletal: No deformity : Nye catheter placement hyperemic skin around the area and excoriations Results & Data Results & Data ([facility]) Vital Signs (Past 12 Hours) Vital Signs Temp Pulse Pulse Resp BP BP Pulse Ox 05/06/21 12:47 60 18 101/62 96 05/06/21 11:50 72 22 106/57 L 96 05/06/21 09:30 96 H 36 H 91/65 L 96 05/06/21 09:27 76 26 H 105/52 L 96 05/06/21 09:00 22 100 05/06/21 08:30 93 H 23 96 05/06/21 08:13 36.8 C 63 30 H 87/69 L 96 05/06/21 08:00 39 L 20 87/69 L 95 05/06/21 07:49 20 84/73 L 91 Laboratory Results 05/06/21 05/06/21 05/06/21 Range/Units 12:44 11:16 11:04 WBC (4.8-10.8) K/uL RBC (4.2-5.4) M/uL Hgb (12.0-16.0) g/dL Hct (37-47) % MCV (80-100) fL MCH (25-34) pg MCHC (32-36) g/dL RDW Std Deviation (36.4-46.3) fL RDW Coeff of Allyson (11.5-14.5) % Plt Count (130-400) K/uL MPV (7.4-10.4) fL Immature Gran % (Auto) % Neut % (Auto) % Lymph % (Auto) % Mclennan % (Auto) % Eos % (Auto) % Baso % (Auto) % Neut # (Auto) (1.4-6.5) K/uL Lymph # (Auto) (1.2-3.4) K/uL Mclennan # (Auto) (0.11-0.59) K/uL Eos # (Auto) (0-0.5) K/uL Baso # (Auto) (0-0.2) K/uL Immature Gran # (Auto) (0.00-0.02) K/uL Sodium (136-145) mmol/L Potassium (3.5-5.1) mmol/L Chloride (98-107) mmol/L Carbon Dioxide (21-32) mmol/L Anion Gap (3-11) BUN (7-18) mg/dl Creatinine (0.6-1.2) mg/dl Est Cr Clr Drug Dosing ml/min Est GFR ( Amer) ml/min Est GFR (Non-Af Amer) ml/min BUN/Creatinine Ratio (10-20) Glucose (70-99) mg/dl POC Glucose 102 H 103 H (70-99) mg/dl Lactate (0.4-2.0) mmol/L Calcium (8.5-10.1) mg/dl Magnesium (1.8-2.4) mg/dl Total Bilirubin (0.2-1) mg/dl AST (15-37) U/L ALT (12-78) U/L Alkaline Phosphatase (45-117) U/L Ammonia 41.0 H Total Creatine Kinase (26-192) U/L Troponin I (0-0.045) ng/ml NT-Pro-B Natriuret Pep (0-900) pg/ml Total Protein (6.4-8.2) gm/dl Albumin (3.4-5.0) gm/dl Globulin (2.5-4.0) gm/dl Albumin/Globulin Ratio (0.9-2) Procalcitonin (0-0.5) ng/ml TSH (0.300-4.500) uIu/ml Urine Color Urine Appearance (Clear) Urine pH (4.5-7.5) Ur Specific Mott (1.000-1.030) Urine Protein (Negative) Urine Glucose (UA) (Negative) Urine Ketones (Negative) Urine Blood (Negative) Urine Nitrite (Negative) Urine Bilirubin (Negative) Urine Urobilinogen (Negative) Ur Leukocyte Esterase (Negative) Urine WBC (Auto) (0-5) /hpf Urine RBC (Auto) (0-4) /hpf U Hyaline Cast (Auto) (0-5) /lpf U Epithel Cells (Auto) (0-5) /lpf Urine Bacteria (Auto) (Negative) COVID-19 Eval Order SARS-CoV-2 (PCR) (Negative) Blood Type Antibody Screen 05/06/21 05/06/21 05/06/21 Range/Units 09:58 09:20 09:20 WBC (4.8-10.8) K/uL RBC (4.2-5.4) M/uL Hgb (12.0-16.0) g/dL Hct (37-47) % MCV (80-100) fL MCH (25-34) pg MCHC (32-36) g/dL RDW Std Deviation (36.4-46.3) fL RDW Coeff of Allyson (11.5-14.5) % Plt Count (130-400) K/uL MPV (7.4-10.4) fL Immature Gran % (Auto) % Neut % (Auto) % Lymph % (Auto) % Mclennan % (Auto) % Eos % (Auto) % Baso % (Auto) % Neut # (Auto) (1.4-6.5) K/uL Lymph # (Auto) (1.2-3.4) K/uL Mclennan # (Auto) (0.11-0.59) K/uL Eos # (Auto) (0-0.5) K/uL Baso # (Auto) (0-0.2) K/uL Immature Gran # (Auto) (0.00-0.02) K/uL Sodium (136-145) mmol/L Potassium (3.5-5.1) mmol/L Chloride (98-107) mmol/L Carbon Dioxide (21-32) mmol/L Anion Gap (3-11) BUN (7-18) mg/dl Creatinine (0.6-1.2) mg/dl Est Cr Clr Drug Dosing ml/min Est GFR ( Amer) ml/min Est GFR (Non-Af Amer) ml/min BUN/Creatinine Ratio (10-20) Glucose (70-99) mg/dl POC Glucose (70-99) mg/dl Lactate (0.4-2.0) mmol/L Calcium (8.5-10.1) mg/dl Magnesium (1.8-2.4) mg/dl Total Bilirubin (0.2-1) mg/dl AST (15-37) U/L ALT (12-78) U/L Alkaline Phosphatase (45-117) U/L Ammonia Total Creatine Kinase (26-192) U/L Troponin I (0-0.045) ng/ml NT-Pro-B Natriuret Pep (0-900) pg/ml Total Protein (6.4-8.2) gm/dl Albumin (3.4-5.0) gm/dl Globulin (2.5-4.0) gm/dl Albumin/Globulin Ratio (0.9-2) Procalcitonin (0-0.5) ng/ml TSH (0.300-4.500) uIu/ml Urine Color Urine Appearance (Clear) Urine pH (4.5-7.5) Ur Specific Mott (1.000-1.030) Urine Protein (Negative) Urine Glucose (UA) (Negative) Urine Ketones (Negative) Urine Blood (Negative) Urine Nitrite (Negative) Urine Bilirubin (Negative) Urine Urobilinogen (Negative) Ur Leukocyte Esterase (Negative) Urine WBC (Auto) (0-5) /hpf Urine RBC (Auto) (0-4) /hpf U Hyaline Cast (Auto) (0-5) /lpf U Epithel Cells (Auto) (0-5) /lpf Urine Bacteria (Auto) (Negative) COVID-19 Eval Order Covid19 at [facility] SARS-CoV-2 (PCR) NEGATIVE (Negative) Blood Type O Positive Antibody Screen NEGATIVE 05/06/21 05/06/21 05/06/21 Range/Units 09:08 08:38 08:32 WBC (4.8-10.8) K/uL RBC (4.2-5.4) M/uL Hgb (12.0-16.0) g/dL Hct (37-47) % MCV (80-100) fL MCH (25-34) pg MCHC (32-36) g/dL RDW Std Deviation (36.4-46.3) fL RDW Coeff of Allyson (11.5-14.5) % Plt Count (130-400) K/uL MPV (7.4-10.4) fL Immature Gran % (Auto) % Neut % (Auto) % Lymph % (Auto) % Mclennan % (Auto) % Eos % (Auto) % Baso % (Auto) % Neut # (Auto) (1.4-6.5) K/uL Lymph # (Auto) (1.2-3.4) K/uL Mclennan # (Auto) (0.11-0.59) K/uL Eos # (Auto) (0-0.5) K/uL Baso # (Auto) (0-0.2) K/uL Immature Gran # (Auto) (0.00-0.02) K/uL Sodium (136-145) mmol/L Potassium (3.5-5.1) mmol/L Chloride (98-107) mmol/L Carbon Dioxide (21-32) mmol/L Anion Gap (3-11) BUN (7-18) mg/dl Creatinine (0.6-1.2) mg/dl Est Cr Clr Drug Dosing ml/min Est GFR ( Amer) ml/min Est GFR (Non-Af Amer) ml/min BUN/Creatinine Ratio (10-20) Glucose (70-99) mg/dl POC Glucose (70-99) mg/dl Lactate (0.4-2.0) mmol/L Calcium (8.5-10.1) mg/dl Magnesium (1.8-2.4) mg/dl Total Bilirubin (0.2-1) mg/dl AST (15-37) U/L ALT (12-78) U/L Alkaline Phosphatase (45-117) U/L Ammonia Cancelled Total Creatine Kinase (26-192) U/L Troponin I (0-0.045) ng/ml NT-Pro-B Natriuret Pep (0-900) pg/ml Total Protein (6.4-8.2) gm/dl Albumin (3.4-5.0) gm/dl Globulin (2.5-4.0) gm/dl Albumin/Globulin Ratio (0.9-2) Procalcitonin 0.27 (0-0.5) ng/ml TSH (0.300-4.500) uIu/ml Urine Color Dark Yellow Urine Appearance Cloudy A (Clear) Urine pH 5.0 (4.5-7.5) Ur Specific Mott 1.015 (1.000-1.030) Urine Protein Negative (Negative) Urine Glucose (UA) Negative (Negative) Urine Ketones Negative (Negative) Urine Blood Negative (Negative) Urine Nitrite Negative (Negative) Urine Bilirubin Negative (Negative) Urine Urobilinogen Negative (Negative) Ur Leukocyte Esterase 1+ H (Negative) Urine WBC (Auto) >30 H (0-5) /hpf Urine RBC (Auto) 0-4 (0-4) /hpf U Hyaline Cast (Auto) 1-5 (0-5) /lpf U Epithel Cells (Auto) >30 H (0-5) /lpf Urine Bacteria (Auto) 4+ H (Negative) COVID-19 Eval Order SARS-CoV-2 (PCR) (Negative) Blood Type Antibody Screen 05/06/21 05/06/21 05/06/21 Range/Units 08:28 08:17 08:17 WBC 9.24 (4.8-10.8) K/uL RBC 2.37 L (4.2-5.4) M/uL Hgb 8.0 L (12.0-16.0) g/dL Hct 24.3 L (37-47) % MCV 102.5 H (80-100) fL MCH 33.8 (25-34) pg MCHC 32.9 (32-36) g/dL RDW Std Deviation 55.3 H (36.4-46.3) fL RDW Coeff of Allyson 15.0 H (11.5-14.5) % Plt Count 219 (130-400) K/uL MPV 10.3 (7.4-10.4) fL Immature Gran % (Auto) 0.3 % Neut % (Auto) 72.5 % Lymph % (Auto) 13.2 % Mclennan % (Auto) 12.1 % Eos % (Auto) 1.7 % Baso % (Auto) 0.2 % Neut # (Auto) 6.69 H (1.4-6.5) K/uL Lymph # (Auto) 1.22 (1.2-3.4) K/uL Mclennan # (Auto) 1.12 H (0.11-0.59) K/uL Eos # (Auto) 0.16 (0-0.5) K/uL Baso # (Auto) 0.02 (0-0.2) K/uL Immature Gran # (Auto) 0.03 H (0.00-0.02) K/uL Sodium 136 (136-145) mmol/L Potassium 4.8 (3.5-5.1) mmol/L Chloride 106 (98-107) mmol/L Carbon Dioxide 23 (21-32) mmol/L Anion Gap 7.0 (3-11) BUN 32 H (7-18) mg/dl Creatinine 2.25 H (0.6-1.2) mg/dl Est Cr Clr Drug Dosing 19.2 ml/min Est GFR ( Amer) 24.6 ml/min Est GFR (Non-Af Amer) 21.2 ml/min BUN/Creatinine Ratio 14.4 (10-20) Glucose 59 L (70-99) mg/dl POC Glucose (70-99) mg/dl Lactate 1.5 (0.4-2.0) mmol/L Calcium 8.4 L (8.5-10.1) mg/dl Magnesium 2.6 H (1.8-2.4) mg/dl Total Bilirubin 1.1 H (0.2-1) mg/dl AST 51 H (15-37) U/L ALT 25 (12-78) U/L Alkaline Phosphatase 89 (45-117) U/L Ammonia Total Creatine Kinase 478 H (26-192) U/L Troponin I < 0.015 (0-0.045) ng/ml NT-Pro-B Natriuret Pep 53585 H (0-900) pg/ml Total Protein 6.3 L (6.4-8.2) gm/dl Albumin 2.1 L (3.4-5.0) gm/dl Globulin 4.2 H (2.5-4.0) gm/dl Albumin/Globulin Ratio 0.5 L (0.9-2) Procalcitonin (0-0.5) ng/ml TSH 1.070 (0.300-4.500) uIu/ml Urine Color Urine Appearance (Clear) Urine pH (4.5-7.5) Ur Specific Mott (1.000-1.030) Urine Protein (Negative) Urine Glucose (UA) (Negative) Urine Ketones (Negative) Urine Blood (Negative) Urine Nitrite (Negative) Urine Bilirubin (Negative) Urine Urobilinogen (Negative) Ur Leukocyte Esterase (Negative) Urine WBC (Auto) (0-5) /hpf Urine RBC (Auto) (0-4) /hpf U Hyaline Cast (Auto) (0-5) /lpf U Epithel Cells (Auto) (0-5) /lpf Urine Bacteria (Auto) (Negative) COVID-19 Eval Order SARS-CoV-2 (PCR) (Negative) Blood Type Antibody Screen 05/06/21 Range/Units 08:14 WBC (4.8-10.8) K/uL RBC (4.2-5.4) M/uL Hgb (12.0-16.0) g/dL Hct (37-47) % MCV (80-100) fL MCH (25-34) pg MCHC (32-36) g/dL RDW Std Deviation (36.4-46.3) fL RDW Coeff of Allyson (11.5-14.5) % Plt Count (130-400) K/uL MPV (7.4-10.4) fL Immature Gran % (Auto) % Neut % (Auto) % Lymph % (Auto) % Mclennan % (Auto) % Eos % (Auto) % Baso % (Auto) % Neut # (Auto) (1.4-6.5) K/uL Lymph # (Auto) (1.2-3.4) K/uL Mclennan # (Auto) (0.11-0.59) K/uL Eos # (Auto) (0-0.5) K/uL Baso # (Auto) (0-0.2) K/uL Immature Gran # (Auto) (0.00-0.02) K/uL Sodium (136-145) mmol/L Potassium (3.5-5.1) mmol/L Chloride (98-107) mmol/L Carbon Dioxide (21-32) mmol/L Anion Gap (3-11) BUN (7-18) mg/dl Creatinine (0.6-1.2) mg/dl Est Cr Clr Drug Dosing ml/min Est GFR ( Amer) ml/min Est GFR (Non-Af Amer) ml/min BUN/Creatinine Ratio (10-20) Glucose (70-99) mg/dl POC Glucose 67 L* (70-99) mg/dl Lactate (0.4-2.0) mmol/L Calcium (8.5-10.1) mg/dl Magnesium (1.8-2.4) mg/dl Total Bilirubin (0.2-1) mg/dl AST (15-37) U/L ALT (12-78) U/L Alkaline Phosphatase (45-117) U/L Ammonia Total Creatine Kinase (26-192) U/L Troponin I (0-0.045) ng/ml NT-Pro-B Natriuret Pep (0-900) pg/ml Total Protein (6.4-8.2) gm/dl Albumin (3.4-5.0) gm/dl Globulin (2.5-4.0) gm/dl Albumin/Globulin Ratio (0.9-2) Procalcitonin (0-0.5) ng/ml TSH (0.300-4.500) uIu/ml Urine Color Urine Appearance (Clear) Urine pH (4.5-7.5) Ur Specific Mott (1.000-1.030) Urine Protein (Negative) Urine Glucose (UA) (Negative) Urine Ketones (Negative) Urine Blood (Negative) Urine Nitrite (Negative) Urine Bilirubin (Negative) Urine Urobilinogen (Negative) Ur Leukocyte Esterase (Negative) Urine WBC (Auto) (0-5) /hpf Urine RBC (Auto) (0-4) /hpf U Hyaline Cast (Auto) (0-5) /lpf U Epithel Cells (Auto) (0-5) /lpf Urine Bacteria (Auto) (Negative) COVID-19 Eval Order SARS-CoV-2 (PCR) (Negative) Blood Type Antibody Screen Medications Administered Medication List Dextrose (D10w) 1,000 mls @ 50 mls/hr IV .Q20H DONA Stop: 06/05/21 09:29 Last Admin: 05/06/21 09:31 Dose: 50 mls/hr Documented by: [id number] Sodium Chloride (Nss 1000ml) 1,000 mls @ 999 mls/hr IV .Q1H1M ONE Stop: 05/06/21 14:39 Last Admin: 05/06/21 13:45 Dose: 999 mls/hr Documented by: [id number] Discontinued Medications Sodium Chloride (Nss) 500 mls @ 999 mls/hr IV .Q31M DONA Stop: 05/06/21 08:45 Last Infusion: 05/06/21 08:41 Dose: 0 mls/hr Documented by: [id number] Admin: 05/06/21 08:00 Dose: 999 mls/hr Documented by: [id number] Cefepime HCl (Maxipime) 2,000 mg in 20 mls @ 5 mls/min IV NOW STA; Protocol Stop: 05/06/21 09:42 Last Admin: 05/06/21 09:45 Dose: 5 mls/min Documented by: [id number] Coding Level of Care Code 16773 Inpt Consult Level 5 Diagnoses Severe sepsis A41.9; R65.20 UTI (urinary tract infection) N30.00 Urinary tract infection type: acute cystitis Hematuria presence: without hematuria Diabetes mellitus with diabetic polyneuropathy E11.42 Diabetes mellitus type: type 2 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 mellitus 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 insulin use: unspecified 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 insulin use status Altered mental status R41.0 Altered mental status type: delirium Acute kidney injury N17.9 (1) UTI (urinary tract infection) Urinary tract infection type: acute cystitis Hematuria presence: without hematuria Qualified Code(s): N30.00 - Acute cystitis without hematuria (2) Diabetes mellitus with diabetic polyneuropathy Diabetes mellitus type: type 2 Diabetes mellitus residential insulin use: unspecified residential insulin use status Qualified Code(s): E11.42 - Type 2 diabetes mellitus with diabetic polyneuropathy (3) Altered mental status Altered mental status type: delirium Qualified Code(s): R41.0 - Disorientation, unspecified
[2021-05-06] MEDS ORDERED: PEPTAMEN INTENSE VHP 1.0 CAL 1,000 ML BAG NJ ONE (14:30)
[2021-05-06] MEDS ORDERED: GLUCOSE 40% GEL 15 GM TUBE PO PRN (15:10)
[2021-05-06] MEDS ORDERED: PIPERACILLIN/TAZOBACTAM 3.375 GM in DEXTROSE 5% 100 ML IV SCH (15:10)
[2021-05-06] MEDS ORDERED: DOCUSATE SODIUM/SENNA 50/8.6MG TAB PO PRN (15:10)
[2021-05-06] MEDS ORDERED: ALBUTEROL HFA 8 GM INHALER INH PRN (15:10)
[2021-05-06] MEDS ORDERED: DEXTROSE 50% IV SCH (15:10)
[2021-05-06] MEDS ORDERED: DEXTROSE 50% 50 ML SYRINGE IV PRN (15:10)
[2021-05-06] MEDS ORDERED: BENZONATATE 100 MG CAPSULE PO PRN (15:10)
[2021-05-06] MEDS ORDERED: GLUCOSE 10 TABS/TUBE PO PRN (15:10)
[2021-05-06] MEDS ORDERED: PIPERACILL/TAZOBAC CONSULT ACTIVE PRN (15:10)
[2021-05-06] MEDS ORDERED: GLUCAGON FOR INJ 1 MG VIAL SQ PRN (15:10)
[2021-05-06] MEDS ORDERED: CARBOHYDRATES FOR HYPOGLYCEMIA PO PRN (15:10)
--- NOTE | 2021-05-06 15:23 | Electrocardiogram Report ---
Test Reason : Blood Pressure : / mmHG Vent. Rate : 075 BPM Atrial Rate : 060 BPM P-R Int : 000 ms QRS Dur : 054 ms QT Int : 446 ms P-R-T Axes : 000 006 036 degrees QTc Int : 498 ms Poor data quality, interpretation may be adversely affected Accelerated Junctional rhythm with Premature supraventricular complexes and with occasional Premature ventricular complexes Low voltage QRS Possible Anterolateral infarct , age undetermined Abnormal ECG No previous ECGs available Confirmed by Sammy Costa ([id number]) on 05/06/2021 3:22:49 PM Referred By: [facility] Confirmed By:Sammy Costa
--- NOTE | 2021-05-06 15:34 | XRay Report ---
KUB HISTORY: Status post placement of an enteric tube. ng placement COMPARISON: Chest radiograph of same day FINDINGS: Cardiac silhouette is enlarged. Pulmonary vascular congestion with bibasilar opacities and probable trace pleural effusions. Enteric tube is present with distal tip projected over the midline lower abdomen, likely within the region of the distal stomach. The right lateral abdomen and pelvis a re excluded from the [id number]. There is suggestion of 2 additional catheters overlying the lower abdomen. Bowel gas pattern is nonobstructive. Possible bilateral nephrolithiasis without ureteral ca lculi identified. Degenerative changes of the spine. IMPRESSION: Distal tip of enteric tube is noted in the expected location of the distal stomach. ACT 112: Negative or not required by law. The above report was generated using voice recognition software. It may contain grammatical, syntax o r spelling errors. Electronically signed by: Houston Rueda M.D. 05/06/2021 3:33 PM
[2021-05-06] MEDS ORDERED: PIPERACILLIN/TAZOBACTAM 3.375 GM in DEXTROSE 5% 100 ML IV ONE (15:45)
--- NOTE | 2021-05-06 16:23 | CT Scan Report ---
CT chest diagnostic wo con, CT abd pelvis wo con CT DOSE: 1464.27 mGy.cm CLINICAL HISTORY: 70 years-old Female with dysphagia, pneumonia. Acute dysphasia with pneumonia and generalized abdominal pain TECHNIQUE: Multiaxial CT images of the chest, abdomen and pelvis were performed without contrast. A dose lowering technique was utilized adhering to the principles of ALARA. COMPARISON: KUB and chest radiograph of same day FINDINGS: Motion degraded exam. CT CHEST: Heterogeneous thyroid. Mildly enlarged 10 mm precarinal lymph node on image 89. Subcarinal lymph node s measure up to 8 mm. Calcified left hilar lymph nodes. Mild cardiomegaly. No pericardial effusion. M ural fibrofatty changes of the left ventricular apex suggestive of prior infarction. Extensive ackerman ry artery calcifications. Atherosclerotic plaque of the aorta without aneurysm. Small pleural effusions. Mild intralobular septal thickening. Mild emphysema. No pneumothorax. Depend ent bibasilar consolidation suggestive of compressive atelectasis. There are a few scattered nodular consolidative opacities present throughout the right lung measuring up to 5 mm. Mild left basilar muc ous plugging. Unremarkable soft tissues. The study is limited secondary to patient positioning. Degen erative changes of the spine and shoulders. Chronic appearing nondisplaced right anterior rib fractur es. Numerous age-indeterminate thoracic compression deformities. No significant retropulsion or high- grade central canal stenosis. No definite paravertebral edema identified. Convex right curvature of t he midthoracic spine. CT ABDOMEN/PELVIS: No pneumatosis or pneumoperitoneum. Motion degraded exam. Study is also limited secondary to patient positioning and lack of contrast. Scattered calcified granulomata noted within the spleen. The unenhanced pancreas and adrenal glands a re unremarkable. Cholelithiasis. Pneumobilia with common bile duct stent suggestive of stent patency. Ill-defined 1.8 cm lesion of the left hepatic lobe on image 28. Ill-defined lesion or conglomerate l esions of the left hepatic lobe on image 18 measures up to 4.1 cm. There is an equivocal 11 mm subcap sular lesion of the right hepatic lobe on image 19. Marginal nodularity of the liver. Bilateral renal calcifications are likely vascular. No hydronephrosis. Nye catheter noted within a decompressed urinary bladder. The visualized uterus is unremarkable. Since of atherosclerosis of the abdominal aorta and branch vessels. Ectasia of the infrarenal abdominal aorta measures 2.9 x 2.6 cm. No adenopathy identified. Small hiatal hernia. An enteric tube is present with distal tip terminating within the distal gastric body. There is no bowel obstruction. Indeterminate 1.9 x 1.3 cm hyperattenuating lesion is noted in the right perineal tissues on image 402. Mild rectal wall thickening with trace dependent free pelvic fluid. There is an indeterminate linear metallic density catheter like device measuring up to approx imately 7.5 cm within the cecum and proximal ascending colon. No associated perforation or colonic wa ll thickening. Unremarkable soft tissues. There demineralized appearance of the bones. Degenerative c hanges of the spine, pelvis and hips. Numerous age-indeterminate compression deformities of the lumba r spine. IMPRESSION: 1. Cardiomegaly with pulmonary vascular congestion and small layering pleural effusions. 2. Mild emphysema with minimal scattered nodular consolidative opacities throughout the right lung matute ggestive of an infectious or inflammatory pneumonitis. 3. No bowel obstruction or pneumoperitoneum. 4. Mild rectal wall thickening with perirectal stranding and trace dependent free pelvic fluid. Corre late clinically to exclude a nonspecific proctitis. 5. Cholelithiasis with common bile duct stent. Pneumobilia is suggestive of associated stent patency. 6. Cirrhosis. There are several hepatic lesions as above suggestive of malignancy. Correlate with nba or imaging. 7. Numerous age-indeterminate thoracic and lumbar compression deformities. 8. Indeterminate 7.5 cm metallic density catheter like device within the cecum and ascending colon. 9. Additional findings as above. ACT 112: Negative or not required by law. Electronically signed by: Houston Rueda M.D. 05/06/2021 4:22 PM
[2021-05-06] MEDS ORDERED: INSULIN ASPART 100 UNITS/ML 3 ML PEN SC SCH (16:30)
[2021-05-06] MEDS: D5W AND NSS 1,000 ML IV SCH (16:35)
[2021-05-06] MEDS: HEPARIN SOD 5,000 UNIT/0.5 ML VIAL SQ SCH ×2 (18:09→23:07)
[2021-05-06] MEDS: ATORVASTATIN 40 MG TAB PO SCH (20:05)
[2021-05-06] MEDS: OXcarbazepine 150 MG TABLET PO SCH (20:06)
[2021-05-06] MEDS: CALCIUM 600MG + VIT D 400 IU TAB PO SCH (20:06)
[2021-05-06] MEDS: BUTT PASTE (ZINC OXIDE 16%) 171 APPLN/57 GM JAR EXT SCH (20:06)
[2021-05-06] MEDS ORDERED: Nursing to Pharmacy Communication SCH (21:30)
[2021-05-06] MEDS: PIPERACILLIN/TAZOBACTAM 3.375 GM in DEXTROSE 5% 100 ML IV SCH (23:07)
[2021-05-06] MEDS: INSULIN ASPART 100 UNITS/ML 3 ML PEN SC SCH (23:45)
[2021-05-07] MEDS: D5W AND NSS 1,000 ML IV SCH ×3 (01:21→15:47)
[2021-05-07] MEDS: INSULIN ASPART 100 UNITS/ML 3 ML PEN SC SCH ×3 (05:36→18:03)
[2021-05-07] MEDS: HEPARIN SOD 5,000 UNIT/0.5 ML VIAL SQ SCH ×3 (05:36→22:17)
[2021-05-07] MEDS: PANTOprazole 40 MG TAB PO SCH (05:36)
[2021-05-07 06:47] LABS: Basophils # (auto) 0.02 K/uL (0-0.2); Basophils % (auto) 0.2 %; Eosinophils # (auto) 0.16 K/uL (0-0.5); Eosinophils % (auto) 1.9 %; Hematocrit (blood only) 22.4 % (37-47); Hemoglobin 7.4 g/dL (12.0-16.0); Immature Granulocytes # (auto) 0.03 K/uL (0.00-0.02); Immature Granulocytes % (auto) 0.4 %; Lymphocytes # (auto) 1.16 K/uL (1.2-3.4); Lymphocytes % (auto) 13.7 %; Mean Corpuscular Hemoglobin 33.6 pg (25-34); Mean Corpuscular Volume 101.8 fL (80-100); Mean Platelet Volume 10.7 fL (7.4-10.4); Monocytes # (auto) 1.23 K/uL (0.11-0.59); Monocytes % (auto) 14.6 %; Neutrophils # (auto) 5.84 K/uL (1.4-6.5); Neutrophils % (auto) 69.2 %; Platelet Count 186 K/uL (130-400); RDW Standard Deviation 55.5 fL (36.4-46.3); White Blood Count 8.44 K/uL (4.8-10.8)
[2021-05-07 07:11] LABS: RBC Morphology Unremarkable
[2021-05-07 07:19] LABS: Albumin Level 1.8 gm/dl (3.4-5.0); BUN Creatinine Ratio 14.7 (10-20); Creatinine Clr Calc Pharmacy 18.4 ml/min; Est GFR (African American) 23.9 ml/min; Est GFR (Non-African American) 20.6 ml/min; Magnesium 2.4 mg/dl (1.8-2.4); Potassium 4.2 mmol/L (3.5-5.1)
[2021-05-07 07:21] LABS: Albumin Globulin Ratio 0.4 (0.9-2); Globulin 4.1 gm/dl (2.5-4.0); Total Protein 5.9 gm/dl (6.4-8.2)
--- NOTE | 2021-05-07 07:31 | Magnetic Resonance Report ---
MRI OF THE BRAIN WITHOUT IV CONTRAST CLINICAL HISTORY: Change in mental status. COMPARISON STUDY: CT of the brain dated 05/06/2021. TECHNIQUE: MRI of the brain was performed utilizing various T1 and T2-weighted sequences in the axial , sagittal, and coronal planes. IV contrast was not administered for this examination. The examinatio n is significantly compromised by motion artifact. FINDINGS: Brain parenchyma: There is age-related involutional change noting mild subcortical and periventricula r microangiopathic disease. There is no hemorrhage or mass effect. There is no restricted diffusion t o suggest acute ischemia. Meneses-white matter differentiation is preserved. No extra-axial fluid collec tion is seen. A chronic lacunar infarct is noted in the right-sided periventricular white matter. The cerebellar tonsils are normal in configuration. Ventricles, sulci, and cisterns: Prominent secondary to involutional change. Pituitary and sella: Partially empty sella is incidentally noted. Intracranial vasculature: Normal flow voids are maintained at the skull base. Orbits: The bony orbits are grossly intact. Orbital contents are normal in appearance noting bilatera l ocular lens implants. Sinuses and mastoids: Clear. Calvarium: Unremarkable. Cervical cord: Partially visualized cervical spinal cord is normal in morphology and signal intensity . IMPRESSION: No acute intracranial abnormality is identified noting a significantly motion compromised examination. ACT 112: Negative or not required by law. Electronically signed by: Bossman Ibarra M.D. 05/07/2021 7:30 AM
[2021-05-07] MEDS: OXcarbazepine 150 MG TABLET PO SCH ×2 (07:45→20:19)
[2021-05-07] MEDS: CALCIUM 600MG + VIT D 400 IU TAB PO SCH ×2 (07:45→20:18)
[2021-05-07] MEDS: FLUTICASONE FUROATE 100MCG 14 PUFFS/INHALER INH SCH (07:46)
[2021-05-07] MEDS: FLUTICASONE PROPIONATE NA SPR 16 GM BTL SCH (07:46)
[2021-05-07] MEDS: UMECLIDINIUM/VILANTEROL 62.5/25MCG 7 PUFFS/INHALER INH SCH (07:46)
[2021-05-07] MEDS ORDERED: NON-FORMULARY MEDICATION (Fluticasone-Umeclidin-Vilanter [Trelegy Ellipta] 100-62.5-25 mcg INH SCH (09:00)
[2021-05-07] MEDS: BUTT PASTE (ZINC OXIDE 16%) 171 APPLN/57 GM JAR EXT SCH ×2 (09:42→20:20)
--- NOTE | 2021-05-07 09:45 | Gastrointestinal Consultation ---
Date of Consultation May 07, 2021 Assessment & Plan (1) Altered mental status: 70 year old female with history of HTN, PAD, CHF, COPD, DM, CVA on Plavix w/ history of cholangitis recent ERCP for elevation LFTs w/ biliary stricture, stented w/ plan for EGD/EUS/ERCP yesterday cancelled due to AMS. We were asked to evaluate for dysphagia. Esophagitis noted on ERCP Pantoprazole 40 mg daily Blood cultures, urine cultures, chest x-ray Given cirrhosis on imaging if elevated ammonia can start Lactulose TID Would continue broad spectrum ABX Will update established [facility] GI care team, Dr. Reeder given normal LFTs Attg add: I interviewed and examined pt, reviewed chart and labs. Pt with cirrhosis, biliary stricture now admit with confusion, sepsis. Regarding confusion -- Presumably HE, begin empiric lactulose. Regarding renal failure - Albumin, check U na, Nephro consult. Regarding sepsis- Ucx pos GNR and LFT's nl --> presumably not related to cholangitis; agree witth empiric Zosyn. History of Present Illness Reason for Consultation: confusion Requesting Physician: Jeffrey Attending Physician: Herminio Murphy, DO History of Present Illness 70 year old female with history of HTN, PAD, CHF, COPD, DM, CVA on Plavix admitted through the ED w/ AMS - GI asked to evaluate. Pt was seen and evaluated, chart reviewed. She was to have OP EGD/EUS/ERCP yesterday at [facility] by Dr. Reeder to follow up from abnormal ERCP a few weeks ago with atypical cells from CBD stricture. She was noted to be hypotensive and admitted through [facility] ED. This AM but is asleep, does groan to physical examination and responds briefly to name. ERCP [place] 2020: atypical cells ERCP 2020: The major papilla appeared erythematous. - LA Grade B reflux esophagitis with no bleeding. - Normal stomach. - A single segmental biliary stricture was found in the lower third of the main bile duct. The stricture was indeterminate but given the history there is a high concern for an underlying malignancy. - A biliary sphincterotomy was performed. - Cells for cytology obtained in the lower third of the main duct. - One biliary stent was placed into the common bile duct. - One pancreatic stent was placed into the ventral pancreatic duct. CTAP 2020 OSH: No acute traumatic abnormality involving the chest, abdomen or pelvisThere is a bile duct and pancreatic duct stent in place with intrahepatic and extrahepatic pneumobilia.Hepatic cirrhosis. Scattered hepatic hypodensities measuring up to 11 mm in size are likely new from CT 11/15/2017 with evaluation on prior exams limited by lack of intravenous contrast. These are incompletely characterized, some may represent dilated bile ducts. Cysts, hemangiomas, small abscesses or cystic neoplasm are other considerations. Findings are incompletely characterized. Contrast-enhanced abdominal MRI with MRCP is recommended for further evaluation.Cholelithiasis. Mild gallbladder wall thickening with prominent mucosal enhancement involving the gallbladder and cystic duct. Findings may be related to hepatic cirrhosis/liver dysfunction. Acute cholecystitis is unlikely. Chronic cholecystitis in the setting of cirrhosis is favored. Cholangitis is also a consideration given the constellation of findings. CTAP 2020: Cardiomegaly with pulmonary vascular congestion and small layering pleural effusions. Mild emphysema with minimal scattered nodular consolidative opacities throughout the right lung suggestive of an infectious or inflammatory pneumonitis. No bowel obstruction or pneumoperitoneum. Mild rectal wall thickeni ng with perirectal stranding and trace dependent free pelvic fluid. Correlate clinically to exclude a nonspecific proctitis.Cholelithiasis with common bile duct stent. Pneumobilia is suggestive of associated stent patency.Cirrhosis. There are several hepatic lesions as above suggestive of malignancy. Correlate with prior imaging. Numerous age-indeterminate thoracic and lumbar compression deformities.Indeterminate 7.5 cm metallic density catheter like device within the cecum and ascending colon. Additional findings as above. CTAP 2020 OSH: No acute traumatic abnormality involving the chest, abdomen or pelvisThere is a bile duct and pancreatic duct stent in place with intrahepatic and extrahepatic pneumobilia.Hepatic cirrhosis. Scattered hepatic hypodensities measuring up to 11 mm in size are likely new from CT 11/15/2017 with evaluation on prior exams limited by lack of intravenous contrast. These are incompletely characterized, some may represent dilated bile ducts. Cysts, hemangiomas, small abscesses or cystic neoplasm are other considerations. Findings are incompletely characterized. Contrast-enhanced abdominal MRI with MRCP is recommended for further evaluation.Cholelithiasis. Mild gallbladder wall thickening with prominent mucosal enhancement involving the gallbladder and cystic duct. Findings may be related to hepatic cirrhosis/liver dysfunction. Acute cholecystitis is unlikely. Chronic cholecystitis in the setting of cirrhosis is favored. Cholangitis is also a consideration given the constellation of findings. Allergies Allergy/AdvReac Type Severity Reaction Status Date / Time carbamazepine [From Tegretol] AdvReac sleepy anf Verified 05/06/21 08:20 floaty Home Medications Medication Instructions Recorded Confirmed Type nitroglycerin 0.4 mg sublingual 0.4 mg SL Q5M PRN #25 tab 07/25/19 05/06/21 Rx tablet calcium carbonate 600 mg(1,500 1 tab PO BID #60 tab 08/17/19 05/06/21 Rx mg)-vitamin D3 800 unit chewable tablet albuterol sulfate 90 mcg/actuation 2 puffs INH Q6H PRN 09/22/19 05/06/21 History aerosol inhaler azelastine 137 mcg (0.1 %) nasal 2 sprays INTNAS BID #30 ml 09/22/19 05/06/21 Rx spray aerosol folic acid 1 mg tablet 2 mg PO DAILY #60 tab 02/20/20 05/06/21 Rx bupropion HCl 150 mg 24 hr tablet, See Rx Instructions .ROUTE 04/02/20 05/06/21 Rx extended release .COMPLEX #60 tab ammonium lactate 12 % lotion 1 applic TOPICAL BID PRN #226 g 07/29/20 05/06/21 Rx oxcarbazepine 150 mg tablet 300 mg PO BID #120 tab 10/21/20 05/06/21 Rx ergocalciferol (vitamin D2) 1,250 50,000 unit PO WEEKLY #4 cap 03/10/21 05/06/21 Rx mcg (50,000 unit) capsule clotrimazole 1 % topical cream 1 applic TOPICAL BID #30 g 03/26/21 05/06/21 Rx mupirocin 2 % topical ointment 1 applic TOPICAL BID #22 g 03/26/21 05/06/21 Rx Dextrose 50% 50ml Iv 50 ml IV UD 05/06/21 05/06/21 History amlodipine 2.5 mg PO QAM 05/06/21 05/06/21 History atenolol 25 mg PO QAM 05/06/21 05/06/21 History atorvastatin 80 mg PO HS 05/06/21 05/06/21 History benzonatate 100 mg PO TID PRN 05/06/21 05/06/21 History cyanocobalamin (vitamin B-12) 1,000 mcg PO QAM 05/06/21 05/06/21 History docusate sodium 100 mg PO BID 05/06/21 05/06/21 History famotidine 10 mg PO QAM 05/06/21 05/06/21 History fluticasone propionate [Allergy 2 sprays INTNAS QAM 05/06/21 05/06/21 History Relief (fluticasone)] grvayxlrwoo-xvygefabu-psgaeyai 1 inh INHALATION QAM 05/06/21 05/06/21 History [Trelegy Ellipta] gabapentin [Neurontin] 300 mg PO Q12 05/06/21 05/06/21 History insulin regular human [Humulin R 1 sliding scale dose SUBCUT 05/06/21 05/06/21 History Regular U-100 Insuln] USEASDIRECTD lisinopril 10 mg PO QAM 05/06/21 05/06/21 History loratadine 10 mg PO QAM 05/06/21 05/06/21 History mecobal-levomefolat Ca-B6 phos 1 tab PO QAM 05/06/21 05/06/21 History [Foltanx] pantoprazole 40 mg PO DAILYBB 05/06/21 05/06/21 History sennosides-docusate sodium 1 tab-cap PO QDL PRN 05/06/21 05/06/21 History [Senokot-S] zinc oxide 1 applic TOPICAL BID 05/06/21 05/06/21 History Patient History Medical History Acquired claw toe of left foot Acquired hallux valgus of right foot Atherosclerotic peripheral vascular disease Benign essential hypertension Carotid artery narrowing Diabetes mellitus with diabetic polyneuropathy Diastolic dysfunction Esophageal reflux Familial hypercholesterolemia Hallux valgus (acquired), left foot History of esophageal reflux HTN (hypertension) Hypercholesterolemia Myocardial infarction Neuropathy Osteopenia Osteoporosis, postmenopausal PAD (peripheral artery disease) Stage 3 chronic kidney disease Stage 3 chronic kidney disease due to benign hypertension Vitamin B12 deficiency Vitamin D deficiency Surgical History History of arterial bypass of lower extremity History of cardiac cath History of esophagogastroduodenoscopy (EGD) Family History Other No pertinent family history Social History Smoking Status: Current every day smoker Age Started Using Tobacco: 17; Cigarettes Per Day: 10; Second Hand Exposure: No; Hx Alcohol Use: No Hx Substance Use: No Preferred Language: Kittitian Communication Ability: Impaired Gastroenterology Teacher Required: No Beliefs That Will Affect Care: None marital status: Current Living Situation: Spouse Current Living Situation Comment: Lives with spouse and grandaughter current occupational status: retired Feels Safe at Home: Yes Dental Care, Regularly: No Physical Activity Frequency: Does not Exercise Seatbelt Use: sometimes Sunscreen Use: No (Not outside much) Assistive Devices: None Review of Systems Review of Systems: Unobtainable due to cognitive status Physical Exam Constitutional: well developed, well nourished and + ill appearing; no acute distress Neck: trachea midline, no thyromegaly Respiratory: normal respiratory effort, lungs clear to auscultation Cardiovascular: RRR, no murmur, no edema Gastrointestinal (Abdomen): normal bowel sounds, soft, nontender, no hepatosplenomegaly Skin: no rashes, warm and dry Results & Data ([facility]) Vital Signs (Past 12 Hours) Vital Signs Temp Pulse Pulse Resp BP Pulse Ox 05/07/21 07:46 36.8 C 69 18 110/69 96 05/07/21 04:00 36.5 C 61 22 101/55 L 96 05/06/21 23:00 36.6 C 60 59 L 20 108/46 L 97 Laboratory Results 05/07/21 05/07/21 05/07/21 Range/Units 06:13 06:13 05:32 WBC 8.44 (4.8-10.8) K/uL RBC 2.20 L (4.2-5.4) M/uL Hgb 7.4 L (12.0-16.0) g/dL Hct 22.4 L (37-47) % MCV 101.8 H (80-100) fL MCH 33.6 (25-34) pg MCHC 33.0 (32-36) g/dL RDW Std Deviation 55.5 H (36.4-46.3) fL RDW Coeff of Allyson 15.0 H (11.5-14.5) % Plt Count 186 (130-400) K/uL MPV 10.7 H (7.4-10.4) fL Immature Gran % (Auto) 0.4 % Neut % (Auto) 69.2 % Lymph % (Auto) 13.7 % [place] % (Auto) 14.6 % Eos % (Auto) 1.9 % Baso % (Auto) 0.2 % Neut # (Auto) 5.84 (1.4-6.5) K/uL Lymph # (Auto) 1.16 L (1.2-3.4) K/uL [place] # (Auto) 1.23 H (0.11-0.59) K/uL Eos # (Auto) 0.16 (0-0.5) K/uL Baso # (Auto) 0.02 (0-0.2) K/uL Immature Gran # (Auto) 0.03 H (0.00-0.02) K/uL RBC Morphology Unremarkable Sodium 136 (136-145) mmol/L Potassium 4.2 (3.5-5.1) mmol/L Chloride 111 H (98-107) mmol/L Carbon Dioxide 20 L (21-32) mmol/L Anion Gap 6.0 (3-11) BUN 34 H (7-18) mg/dl Creatinine 2.31 H (0.6-1.2) mg/dl Est Cr Clr Drug Dosing 18.4 ml/min Est GFR ( Amer) 23.9 ml/min Est GFR (Non-Af Amer) 20.6 ml/min BUN/Creatinine Ratio 14.7 (10-20) Glucose 99 (70-99) mg/dl POC Glucose 121 H (70-99) mg/dl Calcium 8.0 L (8.5-10.1) mg/dl Magnesium 2.4 (1.8-2.4) mg/dl Total Bilirubin 1.0 (0.2-1) mg/dl AST 51 H (15-37) U/L ALT 25 (12-78) U/L Alkaline Phosphatase 80 (45-117) U/L Ammonia NT-Pro-B Natriuret Pep (0-900) pg/ml Total Protein 5.9 L (6.4-8.2) gm/dl Albumin 1.8 L (3.4-5.0) gm/dl Globulin 4.1 H (2.5-4.0) gm/dl Albumin/Globulin Ratio 0.4 L (0.9-2) Procalcitonin (0-0.5) ng/ml SARS-CoV-2 (PCR) (Negative) Blood Type Antibody Screen 05/06/21 05/06/21 05/06/21 Range/Units 23:14 20:39 15:12 WBC (4.8-10.8) K/uL RBC (4.2-5.4) M/uL Hgb (12.0-16.0) g/dL Hct (37-47) % MCV (80-100) fL MCH (25-34) pg MCHC (32-36) g/dL RDW Std Deviation (36.4-46.3) fL RDW Coeff of Allyson (11.5-14.5) % Plt Count (130-400) K/uL MPV (7.4-10.4) fL Immature Gran % (Auto) % Neut % (Auto) % Lymph % (Auto) % [place] % (Auto) % Eos % (Auto) % Baso % (Auto) % Neut # (Auto) (1.4-6.5) K/uL Lymph # (Auto) (1.2-3.4) K/uL [place] # (Auto) (0.11-0.59) K/uL Eos # (Auto) (0-0.5) K/uL Baso # (Auto) (0-0.2) K/uL Immature Gran # (Auto) (0.00-0.02) K/uL RBC Morphology Sodium (136-145) mmol/L Potassium (3.5-5.1) mmol/L Chloride (98-107) mmol/L Carbon Dioxide (21-32) mmol/L Anion Gap (3-11) BUN (7-18) mg/dl Creatinine (0.6-1.2) mg/dl Est Cr Clr Drug Dosing ml/min Est GFR ( Amer) ml/min Est GFR (Non-Af Amer) ml/min BUN/Creatinine Ratio (10-20) Glucose (70-99) mg/dl POC Glucose 94 102 H 93 (70-99) mg/dl Calcium (8.5-10.1) mg/dl Magnesium (1.8-2.4) mg/dl Total Bilirubin (0.2-1) mg/dl AST (15-37) U/L ALT (12-78) U/L Alkaline Phosphatase (45-117) U/L Ammonia NT-Pro-B Natriuret Pep (0-900) pg/ml Total Protein (6.4-8.2) gm/dl Albumin (3.4-5.0) gm/dl Globulin (2.5-4.0) gm/dl Albumin/Globulin Ratio (0.9-2) Procalcitonin (0-0.5) ng/ml SARS-CoV-2 (PCR) (Negative) Blood Type Antibody Screen 05/06/21 05/06/21 05/06/21 Range/Units 12:44 11:16 11:04 WBC (4.8-10.8) K/uL RBC (4.2-5.4) M/uL Hgb (12.0-16.0) g/dL Hct (37-47) % MCV (80-100) fL MCH (25-34) pg MCHC (32-36) g/dL RDW Std Deviation (36.4-46.3) fL RDW Coeff of Allyson (11.5-14.5) % Plt Count (130-400) K/uL MPV (7.4-10.4) fL Immature Gran % (Auto) % Neut % (Auto) % Lymph % (Auto) % [place] % (Auto) % Eos % (Auto) % Baso % (Auto) % Neut # (Auto) (1.4-6.5) K/uL Lymph # (Auto) (1.2-3.4) K/uL [place] # (Auto) (0.11-0.59) K/uL Eos # (Auto) (0-0.5) K/uL Baso # (Auto) (0-0.2) K/uL Immature Gran # (Auto) (0.00-0.02) K/uL RBC Morphology Sodium (136-145) mmol/L Potassium (3.5-5.1) mmol/L Chloride (98-107) mmol/L Carbon Dioxide (21-32) mmol/L Anion Gap (3-11) BUN (7-18) mg/dl Creatinine (0.6-1.2) mg/dl Est Cr Clr Drug Dosing ml/min Est GFR ( Amer) ml/min Est GFR (Non-Af Amer) ml/min BUN/Creatinine Ratio (10-20) Glucose (70-99) mg/dl POC Glucose 102 H 103 H (70-99) mg/dl Calcium (8.5-10.1) mg/dl Magnesium (1.8-2.4) mg/dl Total Bilirubin (0.2-1) mg/dl AST (15-37) U/L ALT (12-78) U/L Alkaline Phosphatase (45-117) U/L Ammonia 41.0 H NT-Pro-B Natriuret Pep (0-900) pg/ml Total Protein (6.4-8.2) gm/dl Albumin (3.4-5.0) gm/dl Globulin (2.5-4.0) gm/dl Albumin/Globulin Ratio (0.9-2) Procalcitonin (0-0.5) ng/ml SARS-CoV-2 (PCR) (Negative) Blood Type Antibody Screen 05/06/21 05/06/21 05/06/21 Range/Units 09:58 09:20 08:38 WBC (4.8-10.8) K/uL RBC (4.2-5.4) M/uL Hgb (12.0-16.0) g/dL Hct (37-47) % MCV (80-100) fL MCH (25-34) pg MCHC (32-36) g/dL RDW Std Deviation (36.4-46.3) fL RDW Coeff of Allyson (11.5-14.5) % Plt Count (130-400) K/uL MPV (7.4-10.4) fL Immature Gran % (Auto) % Neut % (Auto) % Lymph % (Auto) % [place] % (Auto) % Eos % (Auto) % Baso % (Auto) % Neut # (Auto) (1.4-6.5) K/uL Lymph # (Auto) (1.2-3.4) K/uL [place] # (Auto) (0.11-0.59) K/uL Eos # (Auto) (0-0.5) K/uL Baso # (Auto) (0-0.2) K/uL Immature Gran # (Auto) (0.00-0.02) K/uL RBC Morphology Sodium (136-145) mmol/L Potassium (3.5-5.1) mmol/L Chloride (98-107) mmol/L Carbon Dioxide (21-32) mmol/L Anion Gap (3-11) BUN (7-18) mg/dl Creatinine (0.6-1.2) mg/dl Est Cr Clr Drug Dosing ml/min Est GFR ( Amer) ml/min Est GFR (Non-Af Amer) ml/min BUN/Creatinine Ratio (10-20) Glucose (70-99) mg/dl POC Glucose (70-99) mg/dl Calcium (8.5-10.1) mg/dl Magnesium (1.8-2.4) mg/dl Total Bilirubin (0.2-1) mg/dl AST (15-37) U/L ALT (12-78) U/L Alkaline Phosphatase (45-117) U/L Ammonia Cancelled NT-Pro-B Natriuret Pep (0-900) pg/ml Total Protein (6.4-8.2) gm/dl Albumin (3.4-5.0) gm/dl Globulin (2.5-4.0) gm/dl Albumin/Globulin Ratio (0.9-2) Procalcitonin (0-0.5) ng/ml SARS-CoV-2 (PCR) NEGATIVE (Negative) Blood Type O Positive Antibody Screen NEGATIVE 05/06/21 05/06/21 Range/Units 08:32 08:17 WBC (4.8-10.8) K/uL RBC (4.2-5.4) M/uL Hgb (12.0-16.0) g/dL Hct (37-47) % MCV (80-100) fL MCH (25-34) pg MCHC (32-36) g/dL RDW Std Deviation (36.4-46.3) fL RDW Coeff of Allyson (11.5-14.5) % Plt Count (130-400) K/uL MPV (7.4-10.4) fL Immature Gran % (Auto) % Neut % (Auto) % Lymph % (Auto) % [place] % (Auto) % Eos % (Auto) % Baso % (Auto) % Neut # (Auto) (1.4-6.5) K/uL Lymph # (Auto) (1.2-3.4) K/uL [place] # (Auto) (0.11-0.59) K/uL Eos # (Auto) (0-0.5) K/uL Baso # (Auto) (0-0.2) K/uL Immature Gran # (Auto) (0.00-0.02) K/uL RBC Morphology Sodium (136-145) mmol/L Potassium (3.5-5.1) mmol/L Chloride (98-107) mmol/L Carbon Dioxide (21-32) mmol/L Anion Gap (3-11) BUN (7-18) mg/dl Creatinine (0.6-1.2) mg/dl Est Cr Clr Drug Dosing ml/min Est GFR ( Amer) ml/min Est GFR (Non-Af Amer) ml/min BUN/Creatinine Ratio (10-20) Glucose (70-99) mg/dl POC Glucose (70-99) mg/dl Calcium (8.5-10.1) mg/dl Magnesium (1.8-2.4) mg/dl Total Bilirubin (0.2-1) mg/dl AST (15-37) U/L ALT (12-78) U/L Alkaline Phosphatase (45-117) U/L Ammonia NT-Pro-B Natriuret Pep 60321 H (0-900) pg/ml Total Protein (6.4-8.2) gm/dl Albumin (3.4-5.0) gm/dl Globulin (2.5-4.0) gm/dl Albumin/Globulin Ratio (0.9-2) Procalcitonin 0.27 (0-0.5) ng/ml SARS-CoV-2 (PCR) (Negative) Blood Type Antibody Screen (1) Altered mental status Altered mental status type: delirium Qualified Code(s): R41.0 - Disorientation, unspecified
[2021-05-07] MEDS: PIPERACILLIN/TAZOBACTAM 3.375 GM in DEXTROSE 5% 100 ML IV SCH (12:45)
[2021-05-07] MEDS ORDERED: LACTULOSE SYRUP 20 GM/30 ML UDC PO ONE (13:09)
[2021-05-07] MEDS ORDERED: ALBUMIN HUMAN 25% 12.5 GM/50 ML VIAL IV ONE ×2 (14:01→14:12)
[2021-05-07] MEDS: ALBUMIN 25% 12.5 GM/50 ML VIAL IV SCH ×2 (14:25→20:13)
--- NOTE | 2021-05-07 15:34 | Nephrology Consultation ---
Date of Consultation May 07, 2021 Assessment & Plan (1) Acute kidney injury: ongoing from prior hospital stay. stage 1 KANWAL on CKD 3B w/ baseline creatinine (last drawn 09/2020) 1.6 and w/ KANWAL at [facility] where she was admitted 04/22-04/28> Presenting creatinine at [facility] 2.5; peak creatinine 2.7; d/c creatinine 2.1. This in the setting of severe sepsis, recent cholangitis and bacteremia. her presenting creatinine here was 2.2, up to 2.3 today. UOP w/ borderline oliguria. chemistries acceptable w/ mild hyperchloremic NAGMA. likeliest cause here is ATN in setting of sepsis/renal ischemia; other possibility is CKD progression (no labs since fall 2019). anemia notable -transfuse for hgb <7 -changed D5NS to [id number] same rate 125 ml/hr when this bag is complete; will help with NAGMA -no indication for urgent dialysis but cannot rule out need -daily bmp -cont TF at 20 > may ultimately need more neph friendly formula -cont michele and strict i/o Present on Admission?: Yes (2) Oligouria: cont strict I/O Present on Admission?: Yes (3) Severe sepsis: per critical care, gi, primary service; cont zosyn, IVF Present on Admission?: Yes (4) UTI (urinary tract infection): urine cx and ua both c/w uti > on zosyn Present on Admission?: Yes History of Present Illness Reason for Consultation: oligoanuric renal failure in cirrhosis, sepsis Requesting Physician: Dr Canada Attending Physician: Herminio Murphy, DO History of Present Illness 70 y/o F whom I'm asked to see for oligoanuric renal failure in the setting of liver cirrhosis and sepsis was admitted 05/06 from facility w/ progressively altered mental status and 48 hrs dysphagia. PMH includes diffuse premature ASCVD including CAD w/ first TN age 47 yrs, multiple strokes, PVD s/p 2016 L fem endarterectomy and L SFA stenting on plavix; DM, proteinuric CKD 3B, HTN, COPD, HL, hx GI bleeding, active tobacco abuse. Prior baseline creatinine had been 1.6 late last year. She follows in our CKD clinic w/ Dr Garner. Pt w/ recent admission 04/22-04/28 to [facility] w/ acute cholangitis c/b E coli and Klebsiella bacteremia, KANWAL s/p 04/23 ERCP; she presented w/ coffee ground emesis. Pt underwent ERCP at [facility] for LFT elevation w/ biliary stricture and stenting w/ plan for EUS/EGD/ERCP yesterday. Pt d/c on cefdinir which she completed. Presenting creatinine at [facility] 2.5; peak creatinine 2.7; d/c creatinine 2.1. She reportedly had 2 falls on the day she arrived home and was noted to be confused. EMS was called but pt refused transport. Yesterday's GI procedures cancelled d/t AMS and pt instead admitted here. Conf usion attributed to HE; started on lactulose. Also w/ presumptive UTI >> GNR on cx; blood cxs are NGTD. Her admission was 2.2, up to 2.3 today. Currently on zosyn, albumin 12.5 gm for 2 bags only, D5NS at 125 mL/hr. Allergies Allergy/AdvReac Type Severity Reaction Status Date / Time carbamazepine [From Tegretol] AdvReac sleepy anf Verified 05/06/21 08:20 floaty Home Medications Medication Instructions Recorded Confirmed Type nitroglycerin 0.4 mg sublingual 0.4 mg SL Q5M PRN #25 tab 07/25/19 05/06/21 Rx tablet calcium carbonate 600 mg(1,500 1 tab PO BID #60 tab 08/17/19 05/06/21 Rx mg)-vitamin D3 800 unit chewable tablet albuterol sulfate 90 mcg/actuation 2 puffs INH Q6H PRN 09/22/19 05/06/21 History aerosol inhaler azelastine 137 mcg (0.1 %) nasal 2 sprays INTNAS BID #30 ml 09/22/19 05/06/21 Rx spray aerosol folic acid 1 mg tablet 2 mg PO DAILY #60 tab 02/20/20 05/06/21 Rx bupropion HCl 150 mg 24 hr tablet, See Rx Instructions .ROUTE 04/02/20 05/06/21 Rx extended release .COMPLEX #60 tab ammonium lactate 12 % lotion 1 applic TOPICAL BID PRN #226 g 07/29/20 05/06/21 Rx oxcarbazepine 150 mg tablet 300 mg PO BID #120 tab 10/21/20 05/06/21 Rx ergocalciferol (vitamin D2) 1,250 50,000 unit PO WEEKLY #4 cap 03/10/21 05/06/21 Rx mcg (50,000 unit) capsule clotrimazole 1 % topical cream 1 applic TOPICAL BID #30 g 03/26/21 05/06/21 Rx mupirocin 2 % topical ointment 1 applic TOPICAL BID #22 g 03/26/21 05/06/21 Rx Dextrose 50% 50ml Iv 50 ml IV UD 05/06/21 05/06/21 History amlodipine 2.5 mg PO QAM 05/06/21 05/06/21 History atenolol 25 mg PO QAM 05/06/21 05/06/21 History atorvastatin 80 mg PO HS 05/06/21 05/06/21 History benzonatate 100 mg PO TID PRN 05/06/21 05/06/21 History cyanocobalamin (vitamin B-12) 1,000 mcg PO QAM 05/06/21 05/06/21 History docusate sodium 100 mg PO BID 05/06/21 05/06/21 History famotidine 10 mg PO QAM 05/06/21 05/06/21 History fluticasone propionate [Allergy 2 sprays INTNAS QAM 05/06/21 05/06/21 History Relief (fluticasone)] [id number]-[id number]-[id number] 1 inh INHALATION QAM 05/06/21 05/06/21 History [Trelegy Ellipta] gabapentin [Neurontin] 300 mg PO Q12 05/06/21 05/06/21 History insulin regular human [Humulin R 1 sliding scale dose SUBCUT 05/06/21 05/06/21 History Regular U-100 Insuln] USEASDIRECTD lisinopril 10 mg PO QAM 05/06/21 05/06/21 History loratadine 10 mg PO QAM 05/06/21 05/06/21 History mecobal-levomefolat Ca-B6 phos 1 tab PO QAM 05/06/21 05/06/21 History [Foltanx] pantoprazole 40 mg PO DAILYBB 05/06/21 05/06/21 History sennosides-docusate sodium 1 tab-cap PO QDL PRN 05/06/21 05/06/21 History [Senokot-S] zinc oxide 1 applic TOPICAL BID 05/06/21 05/06/21 History Patient History Medical History Acquired claw toe of left foot Acquired hallux valgus of right foot Atherosclerotic peripheral vascular disease Benign essential hypertension Carotid artery narrowing Diabetes mellitus with diabetic polyneuropathy Diastolic dysfunction Esophageal reflux Familial hypercholesterolemia Hallux valgus (acquired), left foot History of esophageal reflux HTN (hypertension) Hypercholesterolemia Myocardial infarction Neuropathy Osteopenia Osteoporosis, postmenopausal PAD (peripheral artery disease) Stage 3 chronic kidney disease Stage 3 chronic kidney disease due to benign hypertension Vitamin B12 deficiency Vitamin D deficiency Surgical History History of arterial bypass of lower extremity History of cardiac cath History of esophagogastroduodenoscopy (EGD) Family History Other No pertinent family history Social History Smoking Status: Current every day smoker Age Started Using Tobacco: 17; Cigarettes Per Day: 10; Second Hand Exposure: No; Hx Alcohol Use: No Hx Substance Use: No Preferred Language: Guinean Communication Ability: Impaired Critical Systems Technician Required: No Beliefs That Will Affect Care: None marital status: Current Living Situation: Spouse Current Living Situation Comment: Lives with spouse and grandaughter current occupational status: retired Feels Safe at Home: Yes Dental Care, Regularly: No Physical Activity Frequency: Does not Exercise Seatbelt Use: sometimes Sunscreen Use: No (Not outside much) Assistive Devices: None Review of Systems Review of Systems: Unobtainable due to reduced consciousness Physical Exam Constitutional: well developed, + acute distress (mild distress - moaning), + obese and + altered mental status Eyes: hold eyes closed during evaluation ENMT: Ears: no external ear abnormality Nose: no external nose abnormality Mouth: + dry oral mucous membranes NG in place Neck: no nuchal rigidity Respiratory: + paradoxical thoraco-abdominal movement Auscultation: + diminished lung sounds, + crackles (R basilar) and + rhonchi Cardiovascular: RRR, no murmur, no edema Gastrointestinal (Abdomen): Inspection/Auscultation: normal bowel sounds Percussion/Palpation: abdomen soft; abdomen nontender Musculoskeletal: Extremities: strength 5/5 throughout Skin: no rashes, warm and dry exceptionally dry skin Neurologic: + obtunded vidal, fluent speech, no tremor Genitourinary: michele w/ some light yellow urine Results & Data ([facility]) Vital Signs (Past 12 Hours) Vital Signs Temp Pulse Pulse Resp BP Pulse Ox 05/07/21 12:32 36.9 C 74 20 108/38 L 96 05/07/21 08:00 59 L 05/07/21 07:46 36.8 C 69 18 110/69 96 05/07/21 04:00 36.5 C 61 22 101/55 L 96 Laboratory Results 05/07/21 06:13 05/07/21 06:13 05/06 UA > cloudy dark yellow; 1015; pH 5, 1+ LE, > 30 WBC, 4+ bacteria, >30 epithelial cells; al indices negative lactate 1.[address] chest/abd/pelvis no con CT CHEST: Heterogeneous thyroid. Mildly enlarged 10 mm precarinal lymph node on image 89. Subcarinal lymph nodes measure up to 8 mm. Calcified left hilar lymph nodes. Mild cardiomegaly. No pericardial effusion. Mural fibrofatty changes of the left ventricular apex suggestive of prior infarction. Extensive coronary artery calcifications. Atherosclerotic plaque of the aorta without aneurysm. Small pleural effusions. Mild intralobular septal thickening. Mild emphysema. No pneumothorax. Dependent bibasilar consolidation suggestive of compressive atelectasis. There are a few scattered nodular consolidative opacities present throughout the right lung measuring up to 5 mm. Mild left basilar mucous plugging. Unremarkable soft tissues. The study is limited secondary to patient positioning. Degenerative changes of the spine and shoulders. Chronic appearing nondisplaced right anterior rib fractures. Numerous age-indeterminate thoracic compression deformities. No significant retropulsion or high-grade central canal stenosis. No definite paravertebral edema identified. Convex right curvature of the midthoracic spine. CT ABDOMEN/PELVIS: No pneumatosis or pneumoperitoneum. Motion degraded exam. Study is also limited secondary to patient positioning and lack of contrast. Scattered calcified granulomata noted within the spleen. The unenhanced pancreas and adrenal glands are unremarkable. Cholelithiasis. Pneumobilia with common bile duct stent suggestive of stent patency. Ill-defined 1.8 cm lesion of the l eft hepatic lobe on image 28. Ill-defined lesion or conglomerate lesions of the left hepatic lobe on image 18 measures up to 4.1 cm. There is an equivocal 11 mm subcapsular lesion of the right hepatic lobe on image 19. Marginal nodularity of the liver. Bilateral renal calcifications are likely vascular. No hydronephrosis. Michele catheter noted within a decompressed urinary bladder. The visualized uterus is unremarkable. Since of atherosclerosis of the abdominal aorta and branch vessels. Ectasia of the infrarenal abdominal aorta measures 2.9 x 2.6 cm. No adenopathy identified. Small hiatal hernia. An enteric tube is present with distal tip terminating within the distal gastric body. There is no bowel obstruction. Indeterminate 1.9 x 1.3 cm hyperattenuating lesion is noted in the right perineal tissues on image 402. Mild rectal wall thickening with trace dependent free pelvic fluid. There is an indeterminate linear metallic density catheter like device measuring up to approximately 7.5 cm within the cecum and proximal ascending colon. No associated perforation or colonic wall thickening. Unremarkable soft tissues. There demineralized appearance of the bones. Degenerative changes of the spine, pelvis and hips. Numerous age-indeterminate compression deformities of the lumbar spine. IMPRESSION: 1. Cardiomegaly with pulmonary vascular congestion and small layering pleural effusions. 2. Mild emphysema with minimal scattered nodular consolidative opacities throughout the right lung suggestive of an infectious or inflammatory pneumonitis. 3. No bowel obstruction or pneumoperitoneum. 4. Mild rectal wall thickening with perirectal stranding and trace dependent free pelvic fluid. Correlate clinically to exclude a nonspecific proctitis. 5. Cholelithiasis with common bile duct stent. Pneumobilia is suggestive of associated stent patency. 6. Cirrhosis. There are several hepatic lesions as above suggestive of malignancy. Correlate with prior imaging. 7. Numerous age-indeterminate thoracic and lumbar compression deformities. 8. Indeterminate 7.5 cm metallic density catheter like device within the cecum and ascending colon. 9. Additional findings as above. BRAIN MRI inconclusive but negative (1) UTI (urinary tract infection) Hematuria presence: without hematuria Urinary tract infection type: acute cystitis Qualified Code(s): N30.00 - Acute cystitis without hematuria
[2021-05-07] MEDS: ATORVASTATIN 40 MG TAB PO SCH (20:18)
[2021-05-07] MEDS: LACTULOSE SYRUP 20 GM/30 ML UDC PO SCH (20:18)
[2021-05-07] MEDS: rifAXIMin 550 MG TABLET PO SCH (20:19)
--- NOTE | 2021-05-07 23:20 | Hospitalist Progress Note ---
Date of Service May 07, 2021 Assessment & Plan (1) Altered mental status: Suspect this is multifactorial as there are multiple other medical issues present that would contribute to this could be related to infection, cover with Zosyn could be related to KANWAL, Cr is 2.3, appreciate nephrology consultation could be related to hepatic encephalopathy given her cirrhosis, start on Lactulose TID, check ammonia in AM MRI brain negative for stroke, bleed, tumor no improvement today, continue IV fluids, antibiotics, tube feeds (2) Acute kidney injury: May be secondary to prerenal azotemia/dehydration, most likely due to sepsis, ATN change fluids to D5 Normosol treat NAGMA appreciate nephrology consult michele in place for accurate UO measurements check labs in AM (3) UTI (urinary tract infection): Patient does have heavily sedimented urine in her Michele Continue hydration with normal saline as outlined Zosyn as noted above, await urine culture results (4) Pneumonia: possible pneumonia Chest x-ray showing bilateral airspace opacities, they suggested that this may be pulmonary edema. However, patient has reported dysphagia with recent procedure, aspiration pneumonia certainly concern continue Zosyn considering patient's recent healthcare exposures. (5) Dysphagia: Patient has recent ERCP with stent placement. Reported that time notes narrowing in the lower third of the main bile duct that was concerning for possible underlying neoplasm Will keep n.p.o. for now NGT in place (6) Diabetes mellitus with diabetic polyneuropathy: Patient hypoglycemic during her evaluation in ER, may be contribute to her confusion Will place patient on a low sliding scale only for now Keep n.p.o. secondary to reported dysphagia We will hydrate with D5NS, monitor blood sugars (7) Benign essential hypertension: Hypotensive, IV fluids as above. We will hold off on oral antihypertensives for now (8) Severe sepsis: due to UTI vitals stable but with encephalopathy (9) Oligouria: (10) Liver metastases: notes lesions on CT consistent with possible liver mets fits with possible malignancy in common bile duct will discuss further with GI if no improvement with above treatment would likely need palliative consultation Admission and Anticipated Discharge Date Admission Date: May 06, 2021 Subjective patient not very responsive, will try to open eyes, grunts but will not speak will not follow commands NG tube in place appreciate GI consult, giving Lactulose for possible hepatic encephalopathy continue antibiotics, albumin nephrology consulted -- appreciate input from Dr. Sanchez Review of Systems Review of Systems: Unobtainable due to cognitive status Physical Exam Constitutional: well developed, well nourished, + altered mental status, comfortable and + lethargic; no acute distress ENMT: Mouth: + dry oral mucous membranes Neck: trachea midline, no thyromegaly Respiratory: normal respiratory effort, lungs clear to auscultation Auscultation: + diminished lung sounds (bases) Cardiovascular: RRR, no murmur, no edema Gastrointestinal (Abdomen): Inspection/Auscultation: abdomen normal to inspection and + hypoactive bowel sounds Percussion/Palpation: abdomen soft and + tympanic to percussion; abdomen nontender Musculoskeletal: Head/Neck/Chest: normocephalic, head atraumatic and neck supple Extremities: extremities normal to inspection; no cyanosis, no clubbing and no petechiae Skin: no rashes, warm and dry Neurologic: CN's II-XI intact bilaterally, moves all extremities, + confused and + obtunded; no focal motor deficits Results & Data Results & Data ([facility]) Vital Signs (Past 12 Hours) Vital Signs Temp Pulse Resp BP Pulse Ox 05/07/21 20:43 37.5 C 75 30 H 123/47 L 93 05/07/21 16:51 36.8 C 82 20 121/50 L 05/07/21 12:32 36.9 C 74 20 108/38 L 96 Laboratory Results Laboratory Results - last 24 hr 05/06/21 05/07/21 05/07/21 23:14 05:32 06:13 WBC 8.44 RBC 2.20 L Hgb 7.4 L Hct 22.4 L MCV 101.8 H MCH 33.6 MCHC 33.0 RDW Std Deviation 55.5 H RDW Coeff of Allyson 15.0 H Plt Count 186 MPV 10.7 H Immature Gran % (Auto) 0.4 Neut % (Auto) 69.2 Lymph % (Auto) 13.7 [place] % (Auto) 14.6 Eos % (Auto) 1.9 Baso % (Auto) 0.2 Neut # (Auto) 5.84 Lymph # (Auto) 1.16 L [place] # (Auto) 1.23 H Eos # (Auto) 0.16 Baso # (Auto) 0.02 Immature Gran # (Auto) 0.03 H RBC Morphology Unremarkable Sodium Potassium Chloride Carbon Dioxide Anion Gap BUN Creatinine Est Cr Clr Drug Dosing Est GFR ( Amer) Est GFR (Non-Af Amer) BUN/Creatinine Ratio Glucose POC Glucose 94 121 H Calcium Magnesium Total Bilirubin AST ALT Alkaline Phosphatase Total Protein Albumin Globulin Albumin/Globulin Ratio Ur Random Sodium 05/07/21 05/07/21 05/07/21 06:13 11:48 15:55 WBC RBC Hgb Hct MCV MCH MCHC RDW Std Deviation RDW Coeff of Allyson Plt Count MPV Immature Gran % (Auto) Neut % (Auto) Lymph % (Auto) [place] % (Auto) Eos % (Auto) Baso % (Auto) Neut # (Auto) Lymph # (Auto) [place] # (Auto) Eos # (Auto) Baso # (Auto) Immature Gran # (Auto) RBC Morphology Sodium 136 Potassium 4.2 Chloride 111 H Carbon Dioxide 20 L Anion Gap 6.0 BUN 34 H Creatinine 2.31 H Est Cr Clr Drug Dosing 18.4 Est GFR ( Amer) 23.9 Est GFR (Non-Af Amer) 20.6 BUN/Creatinine Ratio 14.7 Glucose 99 POC Glucose 137 H Calcium 8.0 L Magnesium 2.4 Total Bilirubin 1.0 AST 51 H ALT 25 Alkaline Phosphatase 80 Total Protein 5.9 L Albumin 1.8 L Globulin 4.1 H Albumin/Globulin Ratio 0.4 L Ur Random Sodium 22 05/07/21 17:51 WBC RBC Hgb Hct MCV MCH MCHC RDW Std Deviation RDW Coeff of Allyson Plt Count MPV Immature Gran % (Auto) Neut % (Auto) Lymph % (Auto) [place] % (Auto) Eos % (Auto) Baso % (Auto) Neut # (Auto) Lymph # (Auto) [place] # (Auto) Eos # (Auto) Baso # (Auto) Immature Gran # (Auto) RBC Morphology Sodium Potassium Chloride Carbon Dioxide Anion Gap BUN Creatinine Est Cr Clr Drug Dosing Est GFR ( Amer) Est GFR (Non-Af Amer) BUN/Creatinine Ratio Glucose POC Glucose 172 H Calcium Magnesium Total Bilirubin AST ALT Alkaline Phosphatase Total Protein Albumin Globulin Albumin/Globulin Ratio Ur Random Sodium Medications Administered Current Inpatient Medications Albuterol (Albuterol Hfa 8 Gm Inhaler) 2 puffs INH Q6H PRN PRN Reason: Shortness Of Breath Stop: 06/05/21 15:09 Atorvastatin Calcium (Atorvastatin 40 Mg Tab) 80 mg PO HS DONA Stop: 06/05/21 20:59 Last Admin: 05/07/21 20:18 Dose: 80 mg Documented by: Benzonatate (Benzonatate 100 Mg Capsule) 100 mg PO TID PRN PRN Reason: Cough Stop: 06/05/21 15:09 Dextrose (Dextrose 50% 50 Ml Syringe) 25 - 50 ml IV UD PRN; Protocol PRN Reason: Hypoglycemia Protocol Stop: 06/05/21 15:09 Ergocalciferol (Ergocalciferol 50,000 Units 1250 Mcg Cap) 50,000 units PO Th@0900 [facility] Stop: 06/07/21 08:59 Fluticasone Furoate (Fluticasone Furoate 100mcg 14 Puffs/Inhaler) 1 puffs INH DAILY [facility] Stop: 06/06/21 08:59 Last Admin: 05/07/21 07:46 Dose: Not Given Documented by: Fluticasone Propionate (Fluticasone Propionate Na Spr 16 Gm Btl) 2 sprays NA QAM DONA Stop: 06/06/21 08:59 Last Admin: 05/07/21 07:46 Dose: Not Given Documented by: Glucagon (Glucagon For Inj 1 Mg Vial) 1 mg SQ UD PRN; Protocol PRN Reason: Hypoglycemia Protocol Stop: 06/05/21 15:09 Glucose (Glucose 10 Tabs/Tube) 4 - 8 tabs PO UD PRN; Protocol PRN Reason: Hypoglycemia Protocol Stop: 06/05/21 15:09 Glucose (Glucose 40% Gel 15 Gm Tube) 15 - 30 gm PO UD PRN; Protocol PRN Reason: Hypoglycemia Protocol Stop: 06/05/21 15:09 Heparin Sodium (Porcine) (Heparin Sod 5,000 Unit/0.5 Ml Vial) 5,000 units SQ Q8 DONA Stop: 06/05/21 15:09 Last Admin: 05/07/21 22:17 Dose: 5,000 units Documented by: Dextrose/Sodium Chloride (D5w And Nss) 1,000 mls @ 125 mls/hr IV .Q8H [facility] Stop: 05/07/21 23:30 Last Infusion: 05/07/21 22:17 Dose: 0 mls/hr Documented by: Piperacillin Sod/Tazobactam (Sod 3.375 gm/ Dextrose) 115 mls @ 28.75 mls/hr IV Q12H DONA; Protocol Stop: 05/14/21 00:00 Last Infusion: 05/07/21 16:45 Dose: Infused Documented by: Dextrose/Electrolytes (D5w Normosol-R) 1,000 mls @ 125 mls/hr IV .Q8H PRN PRN Reason: FLUIDS Stop: 06/06/21 23:29 Last Admin: 05/07/21 22:18 Dose: 125 mls/hr Documented by: Insulin Aspart (Insulin Aspart 100 Units/Ml 3 Ml Pen) 0 units SC Q6 DONA Stop: 06/06/21 00:00 Last Admin: 05/07/21 18:03 Dose: 1 units Documented by: Lactulose (Lactulose Syrup 20 Gm/30 Ml Udc) 20 gm PO TID [facility] Stop: 06/06/21 20:59 Last Admin: 05/07/21 20:18 Dose: 20 gm Documented by: Miscellaneous (Azelastine 137 Mcg (0.1 %) [place] ~ Order Awaiting Action) 1 ea N/A QS [facility] Stop: 06/05/21 15:59 Last Admin: 05/07/21 15:41 Dose: Not Given Documented by: Miscellaneous (Carbohydrates For Hypoglycemia ) 15 - 30 gm PO UD PRN PRN Reason: Hypoglycemia Protocol Stop: 06/05/21 15:09 Miscellaneous Information (Piperacill/Tazobac Consult Active) 1 ea N/A UD PRN PRN Reason: Consult Stop: 06/05/21 15:09 Multivitamins/Minerals (Calcium 600mg + Vit D 400 Iu Tab) 1 tab PO BID [facility] Stop: 06/05/21 20:59 Last Admin: 05/07/21 20:18 Dose: 1 tab Documented by: Oxcarbazepine (Oxcarbazepine 150 Mg Tablet) 300 mg PO BID [facility] Stop: 06/05/21 20:59 Last Admin: 05/07/21 20:19 Dose: 300 mg Documented by: Pantoprazole Sodium (Pantoprazole 40 Mg Tab) 40 mg PO DAILYBB [facility] Stop: 06/06/21 06:29 Last Admin: 05/07/21 05:36 Dose: Not Given Documented by: Petrolatum (Butt Paste (Zinc Oxide 16%) 171 Appln/57 Gm Jar) 1 appln EXT BID [facility] Stop: 06/05/21 20:59 Last Admin: 05/07/21 20:20 Dose: 1 appln Documented by: Rifaximin (Rifaximin 550 Mg Tablet) 550 mg PO BID DONA Stop: 06/06/21 20:59 Last Admin: 05/07/21 20:19 Dose: 550 mg Documented by: Senna/Docusate Sodium (Docusate Sodium/Senna 50/8.6mg Tab) 1 tab PO QDL PRN PRN Reason: Constipation Stop: 06/05/21 15:09 Umeclidinium/Vilanterol (Umeclidinium/Vilanterol 62.5/25mcg 7 Puffs/Inhaler) 1 puffs INH DAILY DONA Stop: 06/06/21 08:59 Last Admin: 05/07/21 07:46 Dose: Not Given Documented by: PG Care Time/CCT Total # of Minutes Spent Total Time Spent with Patient: Total time spent is greater than 50% in coordina tion of care (as documented) at patient's floor/unit and/or counseling patient: Coding Level of Care Code 90270 Subseq Hosp Care Lvl 3 Diagnoses Altered mental status R41.0 Altered mental status type: delirium Acute kidney injury N17.9 UTI (urinary tract infection) N30.00 Urinary tract infection type: acute cystitis Hematuria presence: without hematuria Pneumonia J18.9 Dysphagia R13.10 Diabetes mellitus with diabetic polyneuropathy E11.42 Diabetes mellitus type: type 2 Diabetes mellitus chemical analytical sampler insulin use: unspecified chemical analytical sampler insulin use status Benign essential hypertension I10 Severe sepsis A41.9; R65.20 Oligouria R34 Liver metastases C78.7 (1) Altered mental status Altered mental status type: delirium Qualified Code(s): R41.0 - Disorientation, unspecified (2) UTI (urinary tract infection) Urinary tract infection type: acute cystitis Hematuria presence: without hematuria Qualified Code(s): N30.00 - Acute cystitis without hematuria (3) Diabetes mellitus with diabetic polyneuropathy Diabetes mellitus type: type 2 Diabetes mellitus [facility] insulin use: unspecified chemical analytical sampler insulin use status Qualified Code(s): E11.42 - Type 2 diabetes mellitus with diabetic polyneuropathy
[2021-05-07] MEDS ORDERED: D5W NORMOSOL-R 1,000 ML IV PRN (23:30)
[2021-05-08] MEDS: PIPERACILLIN/TAZOBACTAM 3.375 GM in DEXTROSE 5% 100 ML IV SCH ×2 (00:12→12:41)
[2021-05-08] MEDS: D5W AND NSS 1,000 ML IV SCH (00:13)
[2021-05-08] MEDS: INSULIN ASPART 100 UNITS/ML 3 ML PEN SC SCH ×4 (00:14→19:30)
[2021-05-08] MEDS ORDERED: METOCLOPRAMIDE HCL INJ 5 MG/ML 2 ML VIAL IV STA (01:16)
[2021-05-08] MEDS ORDERED: SODIUM CHLORIDE 0.9% 1000ML 1,000 ML IV STA (04:09)
[2021-05-08] MEDS ORDERED: SODIUM CHLORIDE 0.9% 1000ML 500 ML IV STA (05:04)
[2021-05-08] MEDS: ALBUMIN 25% 12.5 GM/50 ML VIAL IV SCH ×4 (05:15→08:32)
[2021-05-08] MEDS: PANTOprazole 40 MG TAB PO SCH (05:43)
[2021-05-08] MEDS: HEPARIN SOD 5,000 UNIT/0.5 ML VIAL SQ SCH (05:43)
[2021-05-08 06:34] LABS: Hematocrit (blood only) 21.3 % (37-47); Hemoglobin 6.9 g/dL (12.0-16.0); Mean Corpuscular Hemoglobin 33.8 pg (25-34); Mean Corpuscular Hgb Conc 32.4 g/dL (32-36); Mean Corpuscular Volume 104.4 fL (80-100); Mean Platelet Volume 10.5 fL (7.4-10.4); Platelet Count 151 K/uL (130-400); RDW Coefficient of Variation 15.1 % (11.5-14.5); RDW Standard Deviation 57.6 fL (36.4-46.3); Red Blood Count 2.04 M/uL (4.2-5.4); White Blood Count 11.28 K/uL (4.8-10.8)
[2021-05-08] MEDS ORDERED: SODIUM CHLORIDE 0.9% 250 ML IV PRN (06:36)
[2021-05-08 06:39] LABS: Albumin Level 2.4 gm/dl (3.4-5.0); BUN Creatinine Ratio 14.8 (10-20); Calcium 7.6 mg/dl (8.5-10.1); Creatinine Clr Calc Pharmacy 19.3 ml/min; Est GFR (African American) 24.4 ml/min; Magnesium 2.4 mg/dl (1.8-2.4); Potassium 3.9 mmol/L (3.5-5.1)
[2021-05-08 06:42] LABS: Albumin Globulin Ratio 0.7 (0.9-2); Globulin 3.6 gm/dl (2.5-4.0)
[2021-05-08 06:53] LABS: Basophils # (auto) 0.02 K/uL (0-0.2); Basophils % (auto) 0.2 %; Eosinophils # (auto) 0.07 K/uL (0-0.5); Eosinophils % (auto) 0.6 %; Immature Granulocytes # (auto) 0.03 K/uL (0.00-0.02); Immature Granulocytes % (auto) 0.3 %; Lymphocytes # (auto) 1.22 K/uL (1.2-3.4); Lymphocytes % (auto) 10.8 %; Monocytes # (auto) 1.83 K/uL (0.11-0.59); Monocytes % (auto) 16.2 %; Neutrophils # (auto) 8.11 K/uL (1.4-6.5); Neutrophils % (auto) 71.9 %; Rouleaux 1+
[2021-05-08 07:17] LABS: iSTAT Allen Test Pass; iSTAT Arterial Blood Gas HCO3 16 meg/L (19-24); iSTAT Arterial Blood Gas pCO2 30 mmHg (35-46); iSTAT Arterial Blood Gas pH 7.34 (7.35-7.45); iSTAT Arterial Blood Gas pO2 60 mmHg (80-95); iSTAT Carbon Dioxide 17 mmol/L (24-31); iSTAT Site R Radial
--- NOTE | 2021-05-08 08:31 | XRay Report ---
SINGLE VIEW CHEST CLINICAL HISTORY: Dyspnea. FINDINGS: An AP, portable, upright chest radiograph is compared to chest x-ray and chest CT dated 04/16. The examination is degraded by portable technique and patient rotation. An enteric tube has b een placed. The tip projects below the diaphragm over the distal stomach. The heart is enlarged notin g atherosclerotic calcification of the thoracic aorta. There is pulmonary vascular congestion. Increa sing bilateral airspace opacities are seen throughout both lungs. There are layering pleural effusion s with bibasilar consolidation. These have increased in size from previous. No pneumothorax is seen. The skeletal structures are osteopenic. The bony thorax is grossly intact. IMPRESSION: 1. An enteric tube has been placed as above. 2. Cardiomegaly with pulmonary vascular congestion. 3. There are increasing bilateral airspace opacities. This could represent pulmonary edema and/or mul tifocal pneumonia. Clinical correlation will required. 4. Layering pleural effusions with bibasilar consolidation have increased from previous. ACT 112: Negative or not required by law. Electronically signed by: Bossman Ibarra M.D. 05/08/2021 8:29 AM
[2021-05-08] MEDS: OXcarbazepine 150 MG TABLET PO SCH ×2 (08:43→21:11)
[2021-05-08] MEDS: rifAXIMin 550 MG TABLET PO SCH ×2 (08:43→21:12)
[2021-05-08] MEDS: LACTULOSE SYRUP 20 GM/30 ML UDC PO SCH ×3 (08:43→21:11)
[2021-05-08] MEDS: CALCIUM 600MG + VIT D 400 IU TAB PO SCH ×2 (08:43→21:12)
[2021-05-08] MEDS: BUTT PASTE (ZINC OXIDE 16%) 171 APPLN/57 GM JAR EXT SCH ×2 (08:47→21:15)
[2021-05-08] MEDS: FLUTICASONE PROPIONATE NA SPR 16 GM BTL SCH (08:47)
[2021-05-08] MEDS ORDERED: ERGOCALCIFEROL 50,000 UNITS 1250 MCG CAP PO SCH (09:00)
[2021-05-08] MEDS ORDERED: VANCOMYCIN HCL 1,000 MG in SODIUM CHLORIDE 0.9% 250 ML IV ONE (09:00)
[2021-05-08] MEDS: UMECLIDINIUM/VILANTEROL 62.5/25MCG 7 PUFFS/INHALER INH SCH (09:34)
[2021-05-08] MEDS: FLUTICASONE FUROATE 100MCG 14 PUFFS/INHALER INH SCH (09:34)
--- NOTE | 2021-05-08 10:28 | Gastroenterology Progress Note ---
Date of Service May 08, 2021 Assessment & Plan (1) Severe sepsis: 70 year old critically ill female , cirrhosis on imaging w/ KANWAL, sepsis, AMS Can continue lactulose and xifaxan although ammonia level is normalizing and no change in mental status Can continue broad spectrum ABX Appreciate nephrology recommendations Will continue with albumin Esophagitis noted on ERCP Pantoprazole 40 mg daily Will update established [facility] GI care team, Dr. Reeder given normal LFTs will need OP EUS/ERCP given concern for malignancy in the setting of cirrhosis, liver lesion and biliary stricture with atypical cells on brushing Guarded prognosis Will arrange Portal vein US Thank you for allowing us to participate in the care of this patient. Please call with any acute changes, questions or concerns. Please see addendum below with additional recommendation from my supervising physician. Attg add: I interviewed and examined pt, reviewed chart and labs. Pt is actually more awake with me today - she says hello, although speech is garbled, and grunts. She has no tremor or flap and is stooling well on lactulose. Creat stable with low Bobby, and UOP remains 20-30 cc/hr on albumin. 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 HE Anemia without gross GI bleeding KANWAL with low U na. - Empiric lactulose and xifaxan, although presentation is not clearly due to HE. Agree with transfusion for anemia; no evidence of GI blood loss and no need for endoscopy. Empiric albumin for KANWAL, transfusion should help with this as well. Admission and Anticipated Discharge Date Admission Date: May 06, 2021 Subjective Pt was seen and evaluated, chart reviewed. No family at bedside Less verbal this AM for me, does not answer to name. Does grunt with physical exam and conversation Review of Systems Review of Systems: Unobtainable due to cognitive status Physical Exam Constitutional: well developed, well nourished, + acute distress, + ill appearing and average body habitus Neck: trachea midline; no tracheal deviation, no neck crepitus and no anterior neck swelling Respiratory: Auscultation: + diminished lung sounds and + crackles Cardiovascular: Rate/Rhythm: regular rate Gastrointestinal (Abdomen): normal bowel sounds, soft, nontender, no hepatosplenomegaly Skin: no rashes, warm and dry Results & Data ([facility]) Vital Signs (Past 12 Hours) Vital Signs Temp Pulse Pulse Resp BP Pulse Ox 05/08/21 07:45 36.7 C 72 18 101/51 L 95 05/08/21 04:03 37.1 C 75 22 94/49 L 94 05/08/21 00:34 71 05/07/21 23:49 37.1 C 80 23 107/72 94 Laboratory Results 05/08/21 05/08/21 05/08/21 Range/Units 07:03 06:13 06:01 WBC (4.8-10.8) K/uL RBC (4.2-5.4) M/uL Hgb (12.0-16.0) g/dL Hct (37-47) % MCV (80-100) fL MCH (25-34) pg MCHC (32-36) g/dL RDW Std Deviation (36.4-46.3) fL RDW Coeff of Allyson (11.5-14.5) % Plt Count (130-400) K/uL MPV (7.4-10.4) fL Immature Gran % (Auto) % Neut % (Auto) % Lymph % (Auto) % [place] % (Auto) % Eos % (Auto) % Baso % (Auto) % Neut # (Auto) (1.4-6.5) K/uL Lymph # (Auto) (1.2-3.4) K/uL [place] # (Auto) (0.11-0.59) K/uL Eos # (Auto) (0-0.5) K/uL Baso # (Auto) (0-0.2) K/uL Immature Gran # (Auto) (0.00-0.02) K/uL [facility] Sample Site R Radial POC pH 7.34 L (7.35-7.45) POC pCO2 30 L (35-46) mmHg POC pO2 60 L (80-95) mmHg POC HCO3 16 L (19-24) amalia/L POC Total CO2 17 L (24-31) mmol/L POC Base Excess -10.0 L (-9-1.8) amalia/L POC ABG O2 Sat 89.0 L (90-95) % Myles Test Pass O2 Delivery Device Room Air Sodium (136-145) mmol/L Potassium (3.5-5.1) mmol/L Chloride (98-107) mmol/L Carbon Dioxide (21-32) mmol/L Anion Gap (3-11) BUN (7-18) mg/dl Creatinine (0.6-1.2) mg/dl Est Cr Clr Drug Dosing ml/min Est GFR ( Amer) ml/min Est GFR (Non-Af Amer) ml/min BUN/Creatinine Ratio (10-20) Glucose (70-99) mg/dl POC Glucose (70-99) mg/dl Calcium (8.5-10.1) mg/dl Magnesium (1.8-2.4) mg/dl Total Bilirubin (0.2-1) mg/dl AST (15-37) U/L ALT (12-78) U/L Alkaline Phosphatase (45-117) U/L Ammonia 32.8 H (11-32) umol/L Total Protein (6.4-8.2) gm/dl Albumin (3.4-5.0) gm/dl Globulin (2.5-4.0) gm/dl Albumin/Globulin Ratio (0.9-2) Ur Random Sodium mmol/L Blood Type Blood Type Recheck O Positive Antibody Screen Crossmatch 05/08/21 05/08/21 05/08/21 Range/Units 05:57 05:57 05:51 WBC 11.28 H (4.8-10.8) K/uL RBC 2.04 L (4.2-5.4) M/uL Hgb 6.9 L* (12.0-16.0) g/dL Hct 21.3 L (37-47) % MCV 104.4 H (80-100) fL MCH 33.8 (25-34) pg MCHC 32.4 (32-36) g/dL RDW Std Deviation 57.6 H (36.4-46.3) fL RDW Coeff of Allyson 15.1 H (11.5-14.5) % Plt Count 151 (130-400) K/uL MPV 10.5 H (7.4-10.4) fL Immature Gran % (Auto) 0.3 % Neut % (Auto) 71.9 % Lymph % (Auto) 10.8 % [place] % (Auto) 16.2 % Eos % (Auto) 0.6 % Baso % (Auto) 0.2 % Neut # (Auto) 8.11 H (1.4-6.5) K/uL Lymph # (Auto) 1.22 (1.2-3.4) K/uL [place] # (Auto) 1.83 H (0.11-0.59) K/uL Eos # (Auto) 0.07 (0-0.5) K/uL Baso # (Auto) 0.02 (0-0.2) K/uL Immature Gran # (Auto) 0.03 H (0.00-0.02) K/uL Rouleaux 1+ Sample Site POC pH (7.35-7.45) POC pCO2 (35-46) mmHg POC pO2 (80-95) mmHg POC HCO3 (19-24) amalia/L POC Total CO2 (24-31) mmol/L POC Base Excess (-9-1.8) amalia/L POC ABG O2 Sat (90-95) % Myles Test O2 Delivery Device Sodium 140 (136-145) mmol/L Potassium 3.9 (3.5-5.1) mmol/L Chloride 114 H (98-107) mmol/L Carbon Dioxide 20 L (21-32) mmol/L Anion Gap 7.0 (3-11) BUN 34 H (7-18) mg/dl Creatinine 2.27 H (0.6-1.2) mg/dl Est Cr Clr Drug Dosing 19.3 ml/min Est GFR ( Amer) 24.4 ml/min Est GFR (Non-Af Amer) 21.0 ml/min BUN/Creatinine Ratio 14.8 (10-20) Glucose 120 H (70-99) mg/dl POC Glucose 137 H (70-99) mg/dl Calcium 7.6 L (8.5-10.1) mg/dl Magnesium 2.4 (1.8-2.4) mg/dl Total Bilirubin 1.0 (0.2-1) mg/dl AST 35 (15-37) U/L ALT 21 (12-78) U/L Alkaline Phosphatase 75 (45-117) U/L Ammonia (11-32) umol/L Total Protein 6.0 L (6.4-8.2) gm/dl Albumin 2.4 L (3.4-5.0) gm/dl Globulin 3.6 (2.5-4.0) gm/dl Albumin/Globulin Ratio 0.7 L (0.9-2) Ur Random Sodium mmol/L Blood Type Blood Type Recheck Antibody Screen Crossmatch 05/08/21 05/07/21 05/07/21 Range/Units 00:08 17:51 15:55 WBC (4.8-10.8) K/uL RBC (4.2-5.4) M/uL Hgb (12.0-16.0) g/dL Hct (37-47) % MCV (80-100) fL MCH (25-34) pg MCHC (32-36) g/dL RDW Std Deviation (36.4-46.3) fL RDW Coeff of Allyson (11.5-14.5) % Plt Count (130-400) K/uL MPV (7.4-10.4) fL Immature Gran % (Auto) % Neut % (Auto) % Lymph % (Auto) % [place] % (Auto) % Eos % (Auto) % Baso % (Auto) % Neut # (Auto) (1.4-6.5) K/uL Lymph # (Auto) (1.2-3.4) K/uL [place] # (Auto) (0.11-0.59) K/uL Eos # (Auto) (0-0.5) K/uL Baso # (Auto) (0-0.2) K/uL Immature Gran # (Auto) (0.00-0.02) K/uL [facility] Sample Site POC pH (7.35-7.45) POC pCO2 (35-46) mmHg POC pO2 (80-95) mmHg POC HCO3 (19-24) amalia/L POC Total CO2 (24-31) mmol/L POC Base Excess (-9-1.8) amalia/L POC ABG O2 Sat (90-95) % Myles Test O2 Delivery Device Sodium (136-145) mmol/L Potassium (3.5-5.1) mmol/L Chloride (98-107) mmol/L Carbon Dioxide (21-32) mmol/L Anion Gap (3-11) BUN (7-18) mg/dl Creatinine (0.6-1.2) mg/dl Est Cr Clr Drug Dosing ml/min Est GFR ( Amer) ml/min Est GFR (Non-Af Amer) ml/min BUN/Creatinine Ratio (10-20) Glucose (70-99) mg/dl POC Glucose 153 H 172 H (70-99) mg/dl Calcium (8.5-10.1) mg/dl Magnesium (1.8-2.4) mg/dl Total Bilirubin (0.2-1) mg/dl AST (15-37) U/L ALT (12-78) U/L Alkaline Phosphatase (45-117) U/L Ammonia (11-32) umol/L Total Protein (6.4-8.2) gm/dl Albumin (3.4-5.0) gm/dl Globulin (2.5-4.0) gm/dl Albumin/Globulin Ratio (0.9-2) Ur Random Sodium 22 mmol/L Blood Type Blood Type Recheck Antibody Screen Crossmatch 05/07/21 05/06/21 Range/Units 11:48 09:58 WBC (4.8-10.8) K/uL RBC (4.2-5.4) M/uL Hgb (12.0-16.0) g/dL Hct (37-47) % MCV (80-100) fL MCH (25-34) pg MCHC (32-36) g/dL RDW Std Deviation (36.4-46.3) fL RDW Coeff of Allyson (11.5-14.5) % Plt Count (130-400) K/uL MPV (7.4-10.4) fL Immature Gran % (Auto) % Neut % (Auto) % Lymph % (Auto) % [place] % (Auto) % Eos % (Auto) % Baso % (Auto) % Neut # (Auto) (1.4-6.5) K/uL Lymph # (Auto) (1.2-3.4) K/uL [place] # (Auto) (0.11-0.59) K/uL Eos # (Auto) (0-0.5) K/uL Baso # (Auto) (0-0.2) K/uL Immature Gran # (Auto) (0.00-0.02) K/uL [facility] Sample Site POC pH (7.35-7.45) POC pCO2 (35-46) mmHg POC pO2 (80-95) mmHg POC HCO3 (19-24) amalia/L POC Total CO2 (24-31) mmol/L POC Base Excess (-9-1.8) amalia/L POC ABG O2 Sat (90-95) % Myles Test O2 Delivery Device Sodium (136-145) mmol/L Potassium (3.5-5.1) mmol/L Chloride (98-107) mmol/L Carbon Dioxide (21-32) mmol/L Anion Gap (3-11) BUN (7-18) mg/dl Creatinine (0.6-1.2) mg/dl Est Cr Clr Drug Dosing ml/min Est GFR ( Amer) ml/min Est GFR (Non-Af Amer) ml/min BUN/Creatinine Ratio (10-20) Glucose (70-99) mg/dl POC Glucose 137 H (70-99) mg/dl Calcium (8.5-10.1) mg/dl Magnesium (1.8-2.4) mg/dl Total Bilirubin (0.2-1) mg/dl AST (15-37) U/L ALT (12-78) U/L Alkaline Phosphatase (45-117) U/L Ammonia (11-32) umol/L Total Protein (6.4-8.2) gm/dl Albumin (3.4-5.0) gm/dl Globulin (2.5-4.0) gm/dl Albumin/Globulin Ratio (0.9-2) Ur Random Sodium mmol/L Blood Type O Positive Blood Type Recheck Antibody Screen NEGATIVE Crossmatch See Detail
[2021-05-08] MEDS ORDERED: ALBUT/IPRATROP 3MG/0.5MG NEB 3 ML VIAL NEB PRN (12:26)
[2021-05-08] MEDS: TUBE FEEDING WATER FLUSH NG SCH ×3 (13:28→21:15)
[2021-05-08] MEDS: PEPTAMEN 1.5 CAL 1,000 ML BAG NG SCH (13:46)
[2021-05-08] MEDS ORDERED: CEFEPIME CONSULT ACTIVE PRN (15:40)
[2021-05-08] MEDS ORDERED: VANCOMYCIN CONSULT ACTIVE PRN (15:41)
[2021-05-08] MEDS ORDERED: VANCOMYCIN HCL 1,250 MG in SODIUM CHLORIDE 0.9% 250 ML IV ONE (16:00)
[2021-05-08] MEDS: CEFEPIME 2,000 MG in SYRINGE 7.5 ML IV SCH (16:17)
--- NOTE | 2021-05-08 16:21 | Hospitalist Progress Note ---
Date of Service May 08, 2021 Assessment & Plan (1) Acute respiratory failure with hypoxia: worsening breathing, requiring oxygen, increased effort CXR with edema, effusions will give Lasix 40mg IV as urine output is not great and she has KANWAL/CKD stage IV could have been triggered by transfusions but she needed blood with Hb of 6.9 she is DNR/DNI, provide as much support as possible (2) Altered mental status: Suspect this is multifactorial as there are multiple other medical issues present that would contribute to this could be related to infection, now with MRSA swab positive, add Vanco and change to Cefepime with renal function could be related to KANWAL, Cr is 2.2, appreciate nephrology consultation could be related to hepatic encephalopathy given her cirrhosis, continue Lactulose TID, Rifaximin BID, ammonia minimally elevated at 39 MRI brain negative for stroke, bleed, tumor no improvement today, continue IV fluids, antibiotics, tube feeds will continue to discuss prognosis with patient's given her possible malignancy, if she does not improve mentally then palliative care would be appropriate (3) Acute kidney injury: May be secondary to prerenal azotemia/dehydration, most likely due to sepsis, ATN stop fluids given volume overload on CXR and worsening respiratory status treat NAGMA appreciate nephrology consult michele in place for accurate UO measurements making urine, she is non-oliguric will need to give Lasix 40mg IV to try to get more fluid off as now volume overloaded (4) UTI (urinary tract infection): urine culture with 100k GNR change Zosyn to Cefepime due to the addition of Vanco to cover for pneumonia follow up final culture (5) Pneumonia: possible pneumonia Chest x-ray showing bilateral airspace opacities, they suggested that this may be pulmonary edema. However, patient has reported dysphagia with recent procedure, aspiration pneumonia certainly concern add Vanco, change to Cefepime worsening respiratory status, most likely due to volume overload (6) Dysphagia: Patient has recent ERCP with stent placement. Reported that time notes narrowing in the lower third of the main bile duct that was concerning for possible underlying neoplasm Will keep n.p.o. for now NGT in place (7) Diabetes mellitus with diabetic polyneuropathy: Patient hypoglycemic during her evaluation in ER, may be contribute to her confusion Will place patient on a low sliding scale only for now Keep n.p.o. secondary to reported dysphagia We will hydrate with D5NS, monitor blood sugars (8) Benign essential hypertension: Hypotensive, IV fluids as above. We will hold off on oral antihypertensives for now (9) Severe sepsis: due to UTI, possible pneumonia vitals stable but with encephalopathy has renal failure and respiratory failure (10) Oligouria: some improvement in UO with fluids and blood give Lasix 40mg IV due to worsening respiratory status (11) Liver metastases: notes lesions on CT consistent with possible liver mets fits with possible malignancy in common bile duct will discuss further with GI, they have plans for EUS and biopsy as outpatient discussed the possible malignancy with her today, this was the first time he had heard of it he agreed that she would be in no condition for procedure for biopsy and definitely could not tolerate any type of chemotherapy once malignancy proven likely going to need palliative care Admission and Anticipated Discharge Date Admission Date: May 06, 2021 Subjective patient with worsening anemia, down to 6.9, no signs of active bleeding transfused two units after getting consent from her no significant improvement in mental status, ammonia only minimally elevated Cr still high, 2.2, poor urine output discussed with Dr Canada and Dr. Sanchez, poor prognosis currently with everything going on spoke with her over the phone, discussed the lesions on the liver concerning for metastatic disease as well as the possible biliary tract cancer discussed her poor prognosis with her renal failure, worsening breathing, likely cancer, encephalopathy called later in the evening for more respiratory effort, hypoxia CXR with pulmonary edema, effusions, will need to try Lasix 40mg IV, stop fluids could be volume overload from transfusions and prior fluid difficult situation given renal failure and no oral intake Review of Systems Review of Systems: Unobtainable due to cognitive status Physical Exam Constitutional: well developed, well nourished, + altered mental status, comfortable and + lethargic; no acute distress ENMT: Mouth: + dry oral mucous membranes Neck: trachea midline, no thyromegaly Respiratory: + labored breathing, + tachypneic and + grunting Auscultation: + diminished lung sounds (bases) and + rales Cardiovascular: RRR, no murmur, no edema Gastrointestinal (Abdomen): Inspection/Auscultation: abdomen normal to inspection and + hypoactive bowel sounds Percussion/Palpation: abdomen soft and + tympanic to percussion; abdomen nontender Musculoskeletal: Head/Neck/Chest: normocephalic, head atraumatic and neck supple Extremities: extremities normal to inspection; no cyanosis, no clubbing and no petechiae Skin: no rashes, warm and dry Neurologic: CN's II-XI intact bilaterally, moves all extremities, + confused and + obtunded; no focal motor deficits Results & Data Results & Data ([facility]) Vital Signs (Past 12 Hours) Vital Signs Temp Pulse Pulse Pulse Resp BP BP 05/08/21 16:00 36.9 C 79 20 136/75 05/08/21 15:00 36.8 C 90 20 112/68 05/08/21 14:00 36.8 C 81 20 121/61 05/08/21 13:38 89 20 05/08/21 13:30 37.1 C 74 20 108/73 05/08/21 13:15 37.0 C 78 22 116/75 05/08/21 12:58 37.1 C 79 20 124/77 05/08/21 11:27 36.5 C 88 18 90/50 L 05/08/21 07:45 36.7 C 72 18 101/51 L Pulse Ox 05/08/21 16:00 92 05/08/21 15:00 94 05/08/21 14:00 93 05/08/21 13:38 99 05/08/21 13:30 90 05/08/21 13:15 90 05/08/21 12:58 90 05/08/21 11:27 95 05/08/21 07:45 95 Laboratory Results Laboratory Results - last 24 hr 05/06/21 05/07/21 05/07/21 09:58 15:55 17:51 WBC RBC Hgb Hct MCV MCH MCHC RDW Std Deviation RDW Coeff of Allyson Plt Count MPV Immature Gran % (Auto) Neut % (Auto) Lymph % (Auto) Cowley % (Auto) Eos % (Auto) Baso % (Auto) Neut # (Auto) Lymph # (Auto) Cowley # (Auto) Eos # (Auto) Baso # (Auto) Immature Gran # (Auto) David Sample Site POC pH POC pCO2 POC pO2 POC HCO3 POC Total CO2 POC Base Excess POC ABG O2 Sat Myles Test O2 Delivery Device Sodium Potassium Chloride Carbon Dioxide Anion Gap BUN Creatinine Est Cr Clr Drug Dosing Est GFR ( Amer) Est GFR (Non-Af Amer) BUN/Creatinine Ratio Glucose POC Glucose 172 H Calcium Magnesium Total Bilirubin AST ALT Alkaline Phosphatase Ammonia Total Protein Albumin Globulin Albumin/Globulin Ratio Ur Random Sodium 22 Nasal Screen MRSA (PCR) Blood Type O Positive Blood Type Recheck Antibody Screen NEGATIVE Crossmatch See Detail 05/08/21 05/08/21 05/08/21 00:08 05:51 05:57 WBC 11.28 H RBC 2.04 L Hgb 6.9 L* Hct 21.3 L MCV 104.4 H MCH 33.8 MCHC 32.4 RDW Std Deviation 57.6 H RDW Coeff of Allyson 15.1 H Plt Count 151 MPV 10.5 H Immature Gran % (Auto) 0.3 Neut % (Auto) 71.9 Lymph % (Auto) 10.8 Cowley % (Auto) 16.2 Eos % (Auto) 0.6 Baso % (Auto) 0.2 Neut # (Auto) 8.11 H Lymph # (Auto) 1.22 Cowley # (Auto) 1.83 H Eos # (Auto) 0.07 Baso # (Auto) 0.02 Immature Gran # (Auto) 0.03 H Rouleaux 1+ Sample Site POC pH POC pCO2 POC pO2 POC HCO3 POC Total CO2 POC Base Excess POC ABG O2 Sat Myles Test O2 Delivery Device Sodium Potassium Chloride Carbon Dioxide Anion Gap BUN Creatinine Est Cr Clr Drug Dosing Est GFR ( Amer) Est GFR (Non-Af Amer) BUN/Creatinine Ratio Glucose POC Glucose 153 H 137 H Calcium Magnesium Total Bilirubin AST ALT Alkaline Phosphatase Ammonia Total Protein Albumin Globulin Albumin/Globulin Ratio Ur Random Sodium Nasal Screen MRSA (PCR) Blood Type Blood Type Recheck Antibody Screen Crossmatch 05/08/21 05/08/21 05/08/21 05:57 06:01 06:13 WBC RBC Hgb Hct MCV MCH MCHC RDW Std Deviation RDW Coeff of Allyson Plt Count MPV Immature Gran % (Auto) Neut % (Auto) Lymph % (Auto) Cowley % (Auto) Eos % (Auto) Baso % (Auto) Neut # (Auto) Lymph # (Auto) Cowley # (Auto) Eos # (Auto) Baso # (Auto) Immature Gran # (Auto) Rouleaux Sample Site POC pH POC pCO2 POC pO2 POC HCO3 POC Total CO2 POC Base Excess POC ABG O2 Sat Myles Test O2 Delivery Device Sodium 140 Potassium 3.9 Chloride 114 H Carbon Dioxide 20 L Anion Gap 7.0 BUN 34 H Creatinine 2.27 H Est Cr Clr Drug Dosing 19.3 Est GFR ( Amer) 24.4 Est GFR (Non-Af Amer) 21.0 BUN/Creatinine Ratio 14.8 Glucose 120 H POC Glucose Calcium 7.6 L Magnesium 2.4 Total Bilirubin 1.0 AST 35 ALT 21 Alkaline Phosphatase 75 Ammonia 32.8 H Total Protein 6.0 L Albumin 2.4 L Globulin 3.6 Albumin/Globulin Ratio 0.7 L Ur Random Sodium Nasal Screen MRSA (PCR) Blood Type Blood Type Recheck O Positive Antibody Screen Crossmatch 05/08/21 05/08/21 05/08/21 07:03 12:16 14:05 WBC RBC Hgb Hct MCV MCH MCHC RDW Std Deviation RDW Coeff of Allyson Plt Count MPV Immature Gran % (Auto) Neut % (Auto) Lymph % (Auto) Cowley % (Auto) Eos % (Auto) Baso % (Auto) Neut # (Auto) Lymph # (Auto) Cowley # (Auto) Eos # (Auto) Baso # (Auto) Immature Gran # (Auto) [facility] Sample Site R Radial POC pH 7.34 L POC pCO2 30 L POC pO2 60 L POC HCO3 16 L POC Total CO2 17 L POC Base Excess -10.0 L POC ABG O2 Sat 89.0 L Myles Test Pass O2 Delivery Device Room Air Sodium Potassium Chloride Carbon Dioxide Anion Gap BUN Creatinine Est Cr Clr Drug Dosing Est GFR ( Amer) Est GFR (Non-Af Amer) BUN/Creatinine Ratio Glucose POC Glucose 149 H Calcium Magnesium Total Bilirubin AST ALT Alkaline Phosphatase Ammonia Total Protein Albumin Globulin Albumin/Globulin Ratio Ur Random Sodium Nasal Screen MRSA (PCR) Positive A Blood Type Blood Type Recheck Antibody Screen Crossmatch Diagnostic Findings CXR IMPRESSION: 1. No significant change from the prior study 2. Radiographic evidence of congestive failure with bilateral pleural effusions. 3. Basilar opacity statistically representing compressive atelectasis. 4. A superimposed infectious/inflammatory process cannot be excluded. Medications Administered Current Inpatient Medications Albuterol (Albuterol Hfa 8 Gm Inhaler) 2 puffs INH Q6H PRN PRN Reason: Shortness Of Breath Stop: 06/05/21 15:09 Albuterol (Albut/Ipratrop 3mg/0.5mg Neb 3 Ml Vial) 3 ml NEB Q2R PRN PRN Reason: Dyspnea Stop: 06/07/21 12:25 Last Admin: 05/08/21 13:37 Dose: 3 ml Documented by: Atorvastatin Calcium (Atorvastatin 40 Mg Tab) 80 mg PO HS [facility] Stop: 06/05/21 20:59 Last Admin: 05/07/21 20:18 Dose: 80 mg Documented by: Benzonatate (Benzonatate 100 Mg Capsule) 100 mg PO TID PRN PRN Reason: Cough Stop: 06/05/21 15:09 Dextrose (Dextrose 50% 50 Ml Syringe) 25 - 50 ml IV UD PRN; Protocol PRN Reason: Hypoglycemia Protocol Stop: 06/05/21 15:09 Enteral Nutritional Formula (Peptamen 1.5 Jeff 1,000 Ml Bag) 1,000 ml NG UD [facility]; Protocol Stop: 06/07/21 12:59 Last Admin: 05/08/21 13:46 Dose: 1,000 ml Documented by: Ergocalciferol (Ergocalciferol 50,000 Units 1250 Mcg Cap) 50,000 units PO Th@0900 [facility] Stop: 06/07/21 08:59 Last Admin: 05/08/21 08:45 Dose: Not Given Documented by: Fluticasone Furoate (Fluticasone Furoate 100mcg 14 Puffs/Inhaler) 1 puffs INH DAILY [facility] Stop: 06/06/21 08:59 Last Admin: 05/08/21 09:34 Dose: Not Given Documented by: Fluticasone Propionate (Fluticasone Propionate Na Spr 16 Gm Btl) 2 sprays NA QA M [facility] Stop: 06/06/21 08:59 Last Admin: 05/08/21 08:47 Dose: Not Given Documented by: Glucagon (Glucagon For Inj 1 Mg Vial) 1 mg SQ UD PRN; Protocol PRN Reason: Hypoglycemia Protocol Stop: 06/05/21 15:09 Glucose (Glucose 10 Tabs/Tube) 4 - 8 tabs PO UD PRN; Protocol PRN Reason: Hypoglycemia Protocol Stop: 06/05/21 15:09 Glucose (Glucose 40% Gel 15 Gm Tube) 15 - 30 gm PO UD PRN; Protocol PRN Reason: Hypoglycemia Protocol Stop: 06/05/21 15:09 Heparin Sodium (Porcine) (Heparin Sod 5,000 Unit/0.5 Ml Vial) 5,000 units SQ Q8 [facility] Stop: 06/05/21 15:09 Last Admin: 05/08/21 05:43 Dose: 5,000 units Documented by: Dextrose/Electrolytes (D5w Normosol-R) 1,000 mls @ 80 mls/hr IV .[id number] PRN PRN Reason: FLUIDS Stop: 06/06/21 23:29 Last Infusion: 05/08/21 06:29 Dose: Infused Documented by: Sodium Chloride (Nss) 250 mls @ 15 mls/hr IV .[id number] PRN PRN Reason: For Transfusion Stop: 05/08/21 16:36 Vancomycin HCl 1,250 mg/ (Sodium Chloride) 275 mls @ 200 mls/hr IV ONE ONE Stop: 05/08/21 17:22 Cefepime HCl 2,000 mg/ Syringe 20 mls @ 5 mls/min IV DAILY@1600 [facility]; Protocol Stop: 05/15/21 15:59 Insulin Aspart (Insulin Aspart 100 Units/Ml 3 Ml Pen) 0 units SC Q6 [facility] Stop: 06/06/21 00:00 Last Admin: 05/08/21 12:40 Dose: 1 units Documented by: Lactulose (Lactulose Syrup 20 Gm/30 Ml Udc) 20 gm PO BID [facility] Stop: 06/07/21 20:59 Miscellaneous (Azelastine 137 Mcg (0.1 %) [place] ~ Order Awaiting Action) 1 ea N/A QS [facility] Stop: 06/05/21 15:59 Last Admin: 05/08/21 15:46 Dose: Not Given Documented by: Miscellaneous (Carbohydrates For Hypoglycemia ) 15 - 30 gm PO UD PRN PRN Reason: Hypoglycemia Protocol Stop: 06/05/21 15:09 Miscellaneous Information (Vancomycin Consult Active) 1 ea N/A UD PRN PRN Reason: Consult Stop: 06/07/21 15:40 Miscellaneous Information (Cefepime Consult Active) 1 ea N/A UD PRN PRN Reason: Consult Stop: 06/07/21 15:39 Multivitamins/Minerals (Calcium 600mg + Vit D 400 Iu Tab) 1 tab PO BID [facility] Stop: 06/05/21 20:59 Last Admin: 05/08/21 08:43 Dose: 1 tab Documented by: Oxcarbazepine (Oxcarbazepine 150 Mg Tablet) 300 mg PO BID [facility] Stop: 06/05/21 20:59 Last Admin: 05/08/21 08:43 Dose: 300 mg Documented by: Pantoprazole Sodium (Pantoprazole 40 Mg Tab) 40 mg PO DAILYBB [facility] Stop: 06/06/21 06:29 Last Admin: 05/08/21 05:43 Dose: 40 mg Documented by: Petrolatum (Butt Paste (Zinc Oxide 16%) 171 Appln/57 Gm Jar) 1 appln EXT BID [facility] Stop: 06/05/21 20:59 Last Admin: 05/08/21 08:47 Dose: 1 appln Documented by: Rifaximin (Rifaximin 550 Mg Tablet) 550 mg PO BID [facility] Stop: 06/06/21 20:59 Last Admin: 05/08/21 08:43 Dose: 550 mg Documented by: Senna/Docusate Sodium (Docusate Sodium/Senna 50/8.6mg Tab) 1 tab PO QDL PRN PRN Reason: Constipation Stop: 06/05/21 15:09 Sterile Water (Tube Feeding Water Flush) 30 ml NG Q4H [facility] Stop: 06/07/21 12:59 Last Admin: 05/08/21 13:28 Dose: 30 ml Documented by: Umeclidinium/Vilanterol (Umeclidinium/Vilanterol 62.5/25mcg 7 Puffs/Inhaler) 1 puffs INH DAILY [facility] Stop: 06/06/21 08:59 Last Admin: 05/08/21 09:34 Dose: Not Given Documented by: PG Care Time/CCT Total # of Minutes Spent Total Time Spent with Patient: Total time spent is greater than 50% in coordination of care (as documented) at patient's floor/unit and/or counseling patient: Coding Level of Care Code 71947 Subseq Hosp Care Lvl 3 Diagnoses Acute respiratory failure with hypoxia J96.01 Altered mental status R41.0 Altered mental status type: delirium Acute kidney injury N17.9 UTI (urinary tract infection) N30.00 Hematuria presence: without hematuria Urinary tract infection type: acute cystitis Pneumonia J18.9 Dysphagia R13.10 Diabetes mellitus with diabetic polyneuropathy E11.42 Diabetes mellitus half-way insulin use: unspecified half-way insulin use status Diabetes mellitus type: type 2 Benign essential hypertension I10 Severe sepsis A41.9; R65.20 Oligouria R34 Liver metastases C78.7 (1) UTI (urinary tract infection) Hematuria presence: without hematuria Urinary tract infection type: acute cystitis Qualified Code(s): N30.00 - Acute cystitis without hematuria (2) Diabetes mellitus with diabetic polyneuropathy Diabetes mellitus emt intermediate insulin use: unspecified emt intermediate insulin use status Diabetes mellitus type: type 2 Qualified Code(s): E11.42 - Type 2 diabetes mellitus with diabetic polyneuropathy (3) Altered mental status Altered mental status type: delirium Qualified Code(s): R41.0 - Disorientation, unspecified
--- NOTE | 2021-05-08 16:58 | Nephrology Progress Note ---
Date of Service May 08, 2021 Assessment & Plan (1) Acute kidney injury: ongoing from prior hospital stay. stage 1 KANWAL on CKD 3B w/ baseline creatinine (last drawn 09/2020) 1.6 and w/ KANWAL at [facility] where she was admitted 04/22-04/28> Presenting creatinine at [facility] 2.5; peak creatinine 2.7; d/c creatinine 2.1. This in the setting of severe sepsis, recent cholangitis and bacteremia. her presenting creatinine here was 2.2, plateau'd at 2.3 today. UOP less than 1L/day but not oliguric. chemistries acceptable w/ mild hyperchloremic NAGMA. likeliest cause of renal failure here is ATN in setting of sepsis/renal ischemia; other possibility is CKD progression (no labs since fall 2019). anemia notable and worsening -transfuse for hgb <7 -continued [id number] but lowered rate from 125 > 80 ml/hr given lung exam and > 4L positive in 24 hr and likely to need pRBC soon as well -no indication for urgent dialysis but cannot rule out need -daily bmp -cont TF > may ultimately need more neph friendly formula -cont michele and strict i/o (2) Oligouria: cont strict I/O - monitor for oliguria (3) Severe sepsis: per critical care, gi, primary service; cont zosyn, IVF (4) UTI (urinary tract infection): urine cx and ua both c/w uti; GNR on cx > on zosyn Admission and Anticipated Discharge Date Admission Date: May 06, 2021 Subjective not interacting still; seen on rounds this am; afebrile, remains on RA; no interval clinical events Physical Exam Constitutional: well developed, + acute distress (mild distress - moaning), + obese and + altered mental status ENMT: Ears: no external ear abnormality Nose: no external nose abnormality Mouth: + dry oral mucous membranes Neck: no nuchal rigidity Respiratory: + paradoxical thoraco-abdominal movement Auscultation: + diminished lung sounds, + crackles (BL inspiratory) and + wheezes (BL insp) Cardiovascular: Rate/Rhythm: regular rate and regular rhythm Extremities: + edema (BL upper extremities; minimal dependent or lower extremities) Gastrointestinal (Abdomen): Inspection/Auscultation: normal bowel sounds Percussion/Palpation: abdomen soft; abdomen nontender Musculoskeletal: Extremities: strength 5/5 throughout Skin: no rashes, warm and dry Neurologic: + obtunded Genitourinary: michele Results & Data ([facility]) Vital Signs (Past 12 Hours) Vital Signs Temp Pulse Pulse Pulse Resp BP BP 05/08/21 16:35 36.9 C 79 20 146/81 H 05/08/21 16:32 79 20 146/81 H 05/08/21 16:00 36.9 C 79 20 136/75 05/08/21 15:00 36.8 C 90 20 112/68 05/08/21 14:00 36.8 C 81 20 121/61 05/08/21 13:38 89 20 05/08/21 13:30 37.1 C 74 20 108/73 05/08/21 13:15 37.0 C 78 22 116/75 05/08/21 12:58 37.1 C 79 20 124/77 05/08/21 11:27 36.5 C 88 18 90/50 L 05/08/21 07:45 36.7 C 72 18 101/51 L Pulse Ox 05/08/21 16:35 92 05/08/21 16:32 92 05/08/21 16:00 92 05/08/21 15:00 94 05/08/21 14:00 93 05/08/21 13:38 99 05/08/21 13:30 90 05/08/21 13:15 90 05/08/21 12:58 90 05/08/21 11:27 95 05/08/21 07:45 95 Laboratory Results 05/08/21 05:57 05/08/21 05:57 (1) UTI (urinary tract infection) Urinary tract infection type: acute cystitis Hematuria presence: without hematuria Qualified Code(s): N30.00 - Acute cystitis without hematuria
--- NOTE | 2021-05-08 18:53 | XRay Report ---
XR chest 1V portable CLINICAL HISTORY: hypoxia, overload? COMPARISON STUDY: 05/08/2021 FINDINGS: The heart remains borderline enlarged. There is diffuse elevation of interstitium, likely s econdary to congestive failure. There is an enteric tube which passes into the stomach. Small pleural effusions are suspected. There are basilar opacities, likely atelectatic.[ IMPRESSION: 1. No significant change from the prior study 2. Radiographic evidence of congestive failure with bilateral pleural effusions. 3. Basilar opacity statistically representing compressive atelectasis. 4. A superimposed infectious/inflammatory process cannot be excluded. ACT 112: Negative or not required by law. Electronically signed by: Saran Padilla M.D. 05/08/2021 6:51 PM
[2021-05-08] MEDS ORDERED: FUROSEMIDE 40 MG in SYRINGE 0 ML IV ONE (21:00)
[2021-05-08] MEDS: ATORVASTATIN 40 MG TAB PO SCH (21:11)
[2021-05-08 21:16] LABS: HCO3 ABG 17 mmol/L (19-24); PCO2 ABG 34 mmHg (35-46); PO2 ABG 80 mmHg (80-95)
[2021-05-08 21:18] LABS: Allen Test Pos (Pos)
[2021-05-08 21:35] LABS: Basophils # (auto) 0.02 K/uL (0-0.2); Basophils % (auto) 0.2 %; Hematocrit (blood only) 32.4 % (37-47); Hemoglobin 10.8 g/dL (12.0-16.0); Immature Granulocytes # (auto) 0.14 K/uL (0.00-0.02); Immature Granulocytes % (auto) 1.1 %; Lymphocytes # (auto) 0.75 K/uL (1.2-3.4); Lymphocytes % (auto) 5.7 %; Mean Corpuscular Hemoglobin 32.7 pg (25-34); Mean Corpuscular Hgb Conc 33.3 g/dL (32-36); Mean Corpuscular Volume 98.2 fL (80-100); Mean Platelet Volume 11.4 fL (7.4-10.4); Monocytes # (auto) 1.54 K/uL (0.11-0.59); Monocytes % (auto) 11.8 %; Neutrophils % (auto) 81.2 %; Platelet Count 101 K/uL (130-400); RDW Coefficient of Variation 16.7 % (11.5-14.5); RDW Standard Deviation 60.4 fL (36.4-46.3); White Blood Count 13.05 K/uL (4.8-10.8)
[2021-05-08 21:38] LABS: Creatinine Clr Calc Pharmacy 19.3 ml/min; Est GFR (African American) 24.4 ml/min; Potassium 3.9 mmol/L (3.5-5.1)
[2021-05-09] MEDS ORDERED: ALBUT/IPRATROP 3MG/0.5MG NEB 3 ML VIAL NEB STA (01:03)
[2021-05-09] MEDS: TUBE FEEDING WATER FLUSH NG SCH ×7 (01:19→23:57)
[2021-05-09] MEDS: INSULIN ASPART 100 UNITS/ML 3 ML PEN SC SCH ×4 (05:59→18:40)
[2021-05-09] MEDS: PANTOprazole 40 MG TAB PO SCH (06:00)
[2021-05-09] MEDS: LANSOPRAZOLE 30 MG SOLTAB NG SCH (06:32)
[2021-05-09 06:35] LABS: Hematocrit (blood only) 33.1 % (37-47); Hemoglobin 10.8 g/dL (12.0-16.0); Mean Corpuscular Hgb Conc 32.6 g/dL (32-36); Mean Corpuscular Volume 98.2 fL (80-100); Mean Platelet Volume 10.6 fL (7.4-10.4); Platelet Count 154 K/uL (130-400); RDW Coefficient of Variation 17.5 % (11.5-14.5); RDW Standard Deviation 61.3 fL (36.4-46.3); Red Blood Count 3.37 M/uL (4.2-5.4); White Blood Count 15.83 K/uL (4.8-10.8)
[2021-05-09 06:54] LABS: Calcium 8.3 mg/dl (8.5-10.1); Creatinine Clr Calc Pharmacy 19.2 ml/min; Est GFR (African American) 24.2 ml/min; Est GFR (Non-African American) 20.9 ml/min; Potassium 3.8 mmol/L (3.5-5.1)
[2021-05-09] MEDS ORDERED: VANCOMYCIN HCL 1,000 MG in SODIUM CHLORIDE 0.9% 250 ML IV STA (07:12)
--- NOTE | 2021-05-09 08:32 | Gastroenterology Progress Note ---
Date of Service May 09, 2021 Assessment & Plan (1) Altered mental status: 70 year old critically ill female , cirrhosis on imaging w/ KANWAL in the setting of CKD, sepsis, AMS in the setting of recent cholangitis Can continue lactulose and xifaxan although ammonia level is normalizing and no change in mental status Can continue broad spectrum ABX Appreciate nephrology recommendations Will continue with albumin Esophagitis noted on ERCP Pantoprazole 40 mg daily Will update established [facility] GI care team, Dr. Reeder given normal LFTs will need OP EUS/ERCP given concern for malignancy in the setting of cirrhosis, liver lesion and biliary stricture with atypical cells on brushing Guarded prognosis Portal vein US Recall GI as needed. Thank you for allowing us to participate in the care of this patient. Please call with any acute changes, questions or concerns. Please see addendum below with additional recommendation from my supervising physician. Admission and Anticipated Discharge Date Admission Date: May 06, 2021 Supervising Physician Co-Signing Physician Notes I have seen and examined the patient and discussed the management with LORENZA Aldridge. MELD 14, with recent biliary stent placement, now with UTI and elevated wbc count. On abx, lactulose/xifaxan. Not very verbal. ? cancer. Agree with further plan of care as below. Subjective Pt was seen and evaluated, chart reviewed. Transfused, RBC, HGB 10.8 Brown stools documented. No report of black or bloody stools Pt remains obtunded, nonverbal. Is not responding to name or physical examination this AM. Review of Systems Review of Systems: Unobtainable due to cognitive status Physical Exam Constitutional: well developed, well nourished, + ill appearing, + frail appearing and comfortable; no acute distress and + uncooperative Neck: trachea midline, no thyromegaly Respiratory: normal respiratory effort; no respiratory distress, no labored breathing, no cough and no audible wheezes Auscultation: + diminished lung sounds, + crackles and + wheezes Cardiovascular: Rate/Rhythm: regular rate and regular rhythm Extremities: + edema Gastrointestinal (Abdomen): Inspection/Auscultation: + abdomen distended (nontense, mild distention) and normal bowel sounds Percussion/Palpation: abdomen soft; abdomen nontender, no guarding, abdomen not rigid, no abdominal mass and no ascites Skin: no rashes, warm and dry Results & Data ([facility]) Vital Signs (Past 12 Hours) Vital Signs Temp Pulse Resp BP Pulse Ox 05/09/21 08:12 37.0 C 77 20 135/95 92 05/09/21 03:20 36.6 C 72 23 94/43 L 94 05/09/21 01:25 77 24 94 05/08/21 23:14 36.4 C L 76 20 153/86 H 94 Laboratory Results 05/09/21 05/09/21 05/09/21 Range/Units 05:53 05:49 05:49 WBC (4.8-10.8) K/uL RBC (4.2-5.4) M/uL Hgb (12.0-16.0) g/dL Hct (37-47) % MCV (80-100) fL MCH (25-34) pg MCHC (32-36) g/dL RDW Std Deviation (36.4-46.3) fL RDW Coeff of Allyson (11.5-14.5) % Plt Count (130-400) K/uL MPV (7.4-10.4) fL Immature Gran % (Auto) % Neut % (Auto) % Lymph % (Auto) % [place] % (Auto) % Eos % (Auto) % Baso % (Auto) % Neut # (Auto) (1.4-6.5) K/uL Lymph # (Auto) (1.2-3.4) K/uL [place] # (Auto) (0.11-0.59) K/uL Eos # (Auto) (0-0.5) K/uL Baso # (Auto) (0-0.2) K/uL Immature Gran # (Auto) (0.00-0.02) K/uL ABG pH (7.35-7.45) ABG pCO2 (35-46) mmHg ABG pO2 (80-95) mmHg ABG HCO3 (19-24) mmol/L ABG O2 Saturation (90-95) % ABG Base Excess (-9-1.8) mEq/L Myles Test (Pos) Barometric Pressure mm/Hg Oxygen Given Sodium 138 (136-145) mmol/L Potassium 3.8 (3.5-5.1) mmol/L Chloride 112 H (98-107) mmol/L Carbon Dioxide 18 L (21-32) mmol/L Anion Gap 8.0 (3-11) BUN 34 H (7-18) mg/dl Creatinine 2.28 H (0.6-1.2) mg/dl Est Cr Clr Drug Dosing 19.2 ml/min Est GFR ( Amer) 24.2 ml/min Est GFR (Non-Af Amer) 20.9 ml/min BUN/Creatinine Ratio 15.0 (10-20) Glucose 112 H (70-99) mg/dl POC Glucose 109 H (70-99) mg/dl Lactate (0.4-2.0) mmol/L Calcium 8.3 L (8.5-10.1) mg/dl Ammonia (11-32) umol/L Nasal Screen MRSA (PCR) (Negative) Random Vancomycin 15.4 mcg/ml Blood Type Antibody Screen Crossmatch 05/09/21 05/08/21 05/08/21 Range/Units 05:49 23:51 20:45 WBC 15.83 H (4.8-10.8) K/uL RBC 3.37 L (4.2-5.4) M/uL Hgb 10.8 L (12.0-16.0) g/dL Hct 33.1 L (37-47) % MCV 98.2 (80-100) fL MCH 32.0 (25-34) pg MCHC 32.6 (32-36) g/dL RDW Std Deviation 61.3 H (36.4-46.3) fL RDW Coeff of Allyson 17.5 H (11.5-14.5) % Plt Count 154 D (130-400) K/uL MPV 10.6 H (7.4-10.4) fL Immature Gran % (Auto) % Neut % (Auto) % Lymph % (Auto) % [place] % (Auto) % Eos % (Auto) % Baso % (Auto) % Neut # (Auto) (1.4-6.5) K/uL Lymph # (Auto) (1.2-3.4) K/uL [place] # (Auto) (0.11-0.59) K/uL Eos # (Auto) (0-0.5) K/uL Baso # (Auto) (0-0.2) K/uL Immature Gran # (Auto) (0.00-0.02) K/uL ABG pH 7.30 L (7.35-7.45) ABG pCO2 34 L (35-46) mmHg ABG pO2 80 (80-95) mmHg ABG HCO3 17 L (19-24) mmol/L ABG O2 Saturation 95.0 (90-95) % ABG Base Excess -9.0 (-9-1.8) mEq/L Myles Test Pos (Pos) Barometric Pressure 736.4 mm/Hg Oxygen Given 2L Sodium (136-145) mmol/L Potassium (3.5-5.1) mmol/L Chloride (98-107) mmol/L Carbon Dioxide (21-32) mmol/L Anion Gap (3-11) BUN (7-18) mg/dl Creatinine (0.6-1.2) mg/dl Est Cr Clr Drug Dosing ml/min Est GFR ( Amer) ml/min Est GFR (Non-Af Amer) ml/min BUN/Creatinine Ratio (10-20) Glucose (70-99) mg/dl POC Glucose 136 H (70-99) mg/dl Lactate (0.4-2.0) mmol/L Calcium (8.5-10.1) mg/dl Ammonia (11-32) umol/L Nasal Screen MRSA (PCR) (Negative) Random Vancomycin mcg/ml Blood Type Antibody Screen Crossmatch 05/08/21 05/08/21 05/08/21 Range/Units 20:45 20:45 20:45 WBC (4.8-10.8) K/uL RBC (4.2-5.4) M/uL Hgb (12.0-16.0) g/dL Hct (37-47) % MCV (80-100) fL MCH (25-34) pg MCHC (32-36) g/dL RDW Std Deviation (36.4-46.3) fL RDW Coeff of Allyson (11.5-14.5) % Plt Count (130-400) K/uL MPV (7.4-10.4) fL Immature Gran % (Auto) % Neut % (Auto) % Lymph % (Auto) % [place] % (Auto) % Eos % (Auto) % Baso % (Auto) % Neut # (Auto) (1.4-6.5) K/uL Lymph # (Auto) (1.2-3.4) K/uL [place] # (Auto) (0.11-0.59) K/uL Eos # (Auto) (0-0.5) K/uL Baso # (Auto) (0-0.2) K/uL Immature Gran # (Auto) (0.00-0.02) K/uL ABG pH (7.35-7.45) ABG pCO2 (35-46) mmHg ABG pO2 (80-95) mmHg ABG HCO3 (19-24) mmol/L ABG O2 Saturation (90-95) % ABG Base Excess (-9-1.8) mEq/L Myles Test (Pos) Barometric Pressure mm/Hg Oxygen Given Sodium 138 (136-145) mmol/L Potassium 3.9 (3.5-5.1) mmol/L Chloride 113 H (98-107) mmol/L Carbon Dioxide 14 L (21-32) mmol/L Anion Gap 11.0 (3-11) BUN 36 H (7-18) mg/dl Creatinine 2.27 H (0.6-1.2) mg/dl Est Cr Clr Drug Dosing 19.3 ml/min Est GFR ( Amer) 24.4 ml/min Est GFR (Non-Af Amer) 21.0 ml/min BUN/Creatinine Ratio 16.0 (10-20) Glucose 135 H (70-99) mg/dl POC Glucose (70-99) mg/dl Lactate 1.0 (0.4-2.0) mmol/L Calcium 8.0 L (8.5-10.1) mg/dl Ammonia 56.8 H (11-32) umol/L Nasal Screen MRSA (PCR) (Negative) Random Vancomycin mcg/ml Blood Type Antibody Screen Crossmatch 05/08/21 05/08/21 05/08/21 Range/Units 20:45 18:02 14:05 WBC 13.05 H (4.8-10.8) K/uL RBC 3.30 L (4.2-5.4) M/uL Hgb 10.8 L D (12.0-16.0) g/dL Hct 32.4 L (37-47) % MCV 98.2 D (80-100) fL MCH 32.7 (25-34) pg MCHC 33.3 (32-36) g/dL RDW Std Deviation 60.4 H (36.4-46.3) fL RDW Coeff of Allyson 16.7 H (11.5-14.5) % Plt Count 101 L (130-400) K/uL MPV 11.4 H (7.4-10.4) fL Immature Gran % (Auto) 1.1 % Neut % (Auto) 81.2 % Lymph % (Auto) 5.7 % [place] % (Auto) 11.8 % Eos % (Auto) 0.0 % Baso % (Auto) 0.2 % Neut # (Auto) 10.60 H (1.4-6.5) K/uL Lymph # (Auto) 0.75 L (1.2-3.4) K/uL [place] # (Auto) 1.54 H (0.11-0.59) K/uL Eos # (Auto) 0.00 (0-0.5) K/uL Baso # (Auto) 0.02 (0-0.2) K/uL Immature Gran # (Auto) 0.14 H (0.00-0.02) K/uL ABG pH (7.35-7.45) ABG pCO2 (35-46) mmHg ABG pO2 (80-95) mmHg ABG HCO3 (19-24) mmol/L ABG O2 Saturation (90-95) % ABG Base Excess (-9-1.8) mEq/L Myles Test (Pos) Barometric Pressure mm/Hg Oxygen Given Sodium (136-145) mmol/L Potassium (3.5-5.1) mmol/L Chloride (98-107) mmol/L Carbon Dioxide (21-32) mmol/L Anion Gap (3-11) BUN (7-18) mg/dl Creatinine (0.6-1.2) mg/dl Est Cr Clr Drug Dosing ml/min Est GFR ( Amer) ml/min Est GFR (Non-Af Amer) ml/min BUN/Creatinine Ratio (10-20) Glucose (70-99) mg/dl POC Glucose 137 H (70-99) mg/dl Lactate (0.4-2.0) mmol/L Calcium (8.5-10.1) mg/dl Ammonia (11-32) umol/L Nasal Screen MRSA (PCR) Positive A (Negative) Random Vancomycin mcg/ml Blood Type Antibody Screen Crossmatch 05/08/21 05/06/21 Range/Units 12:16 09:58 WBC (4.8-10.8) K/uL RBC (4.2-5.4) M/uL Hgb (12.0-16.0) g/dL Hct (37-47) % MCV (80-100) fL MCH (25-34) pg MCHC (32-36) g/dL RDW Std Deviation (36.4-46.3) fL RDW Coeff of Allyson (11.5-14.5) % Plt Count (130-400) K/uL MPV (7.4-10.4) fL Immature Gran % (Auto) % Neut % (Auto) % Lymph % (Auto) % [place] % (Auto) % Eos % (Auto) % Baso % (Auto) % Neut # (Auto) (1.4-6.5) K/uL Lymph # (Auto) (1.2-3.4) K/uL [place] # (Auto) (0.11-0.59) K/uL Eos # (Auto) (0-0.5) K/uL Baso # (Auto) (0-0.2) K/uL Immature Gran # (Auto) (0.00-0.02) K/uL ABG pH (7.35-7.45) ABG pCO2 (35-46) mmHg ABG pO2 (80-95) mmHg ABG HCO3 (19-24) mmol/L ABG O2 Saturation (90-95) % ABG Base Excess (-9-1.8) mEq/L Myles Test (Pos) Barometric Pressure mm/Hg Oxygen Given Sodium (136-145) mmol/L Potassium (3.5-5.1) mmol/L Chloride (98-107) mmol/L Carbon Dioxide (21-32) mmol/L Anion Gap (3-11) BUN (7-18) mg/dl Creatinine (0.6-1.2) mg/dl Est Cr Clr Drug Dosing ml/min Est GFR ( Amer) ml/min Est GFR (Non-Af Amer) ml/min BUN/Creatinine Ratio (10-20) Glucose (70-99) mg/dl POC Glucose 149 H (70-99) mg/dl Lactate (0.4-2.0) mmol/L Calcium (8.5-10.1) mg/dl Ammonia (11-32) umol/L Nasal Screen MRSA (PCR) (Negative) Random Vancomycin mcg/ml Blood Type O Positive Antibody Screen NEGATIVE Crossmatch See Detail (1) Altered mental status Altered mental status type: delirium Qualified Code(s): R41.0 - Disorientation, unspecified
[2021-05-09] MEDS: rifAXIMin 550 MG TABLET PO SCH ×2 (08:53→19:46)
[2021-05-09] MEDS: CALCIUM 600MG + VIT D 400 IU TAB PO SCH ×2 (08:53→19:46)
[2021-05-09] MEDS: OXcarbazepine 150 MG TABLET PO SCH ×2 (08:53→19:46)
[2021-05-09] MEDS: LACTULOSE SYRUP 20 GM/30 ML UDC PO SCH (08:53)
[2021-05-09] MEDS: BUTT PASTE (ZINC OXIDE 16%) 171 APPLN/57 GM JAR EXT SCH ×2 (08:54→19:48)
[2021-05-09] MEDS: UMECLIDINIUM/VILANTEROL 62.5/25MCG 7 PUFFS/INHALER INH SCH (08:55)
[2021-05-09] MEDS: FLUTICASONE FUROATE 100MCG 14 PUFFS/INHALER INH SCH (08:55)
[2021-05-09] MEDS: FLUTICASONE PROPIONATE NA SPR 16 GM BTL SCH (08:55)
[2021-05-09] MEDS ORDERED: methylPREDNISolone 40 MG in SYRINGE 0 ML IV STA (11:09)
--- NOTE | 2021-05-09 11:09 | Ultrasound Report ---
US duplex portal hepatic veins CLINICAL HISTORY: Cirrhosis. Hepatic lesions. Possible portal vein thrombosis. COMPARISON STUDY: Noncontrast CT scan dated 05/06/2021 FINDINGS: The splenic and portal veins are patent with normal directional flow. The hepatic veins and IVC are patent. The examination was somewhat limited from a technical standpoint as the study was performed portably and the patient was unresponsive and unable to cooperate. IMPRESSION: 1. No evidence of portal vein thrombosis. Normal directional portal vein flow ACT 112: Negative or not required by law. Electronically signed by: Saran Padilla M.D. 05/09/2021 11:07 AM
--- NOTE | 2021-05-09 11:14 | Pharmacy Report ---
Pharmacy Abx Dose Short Note - Date of Service May 09, 2021 - Assessment & Plan Assessment * 70 year old F receiving cefepime and vancomycin for treatment of HAP/UTI. * Patient was admitted on 05/07: Significant AMS on admit - unintelligible. KANWAL noted. CrCL <20 mL/min, therefore Zosyn 3.375 g IV q12h initiated * On 05/08, WBC increased to 11.3 but no documented fever yet during admission. Hypotension noted. CXR w increasing b/l airspace opacities - pulm edema vs. multifocal PNA. CrCL remained <20. MRSA nasal swab ordered and positive therefore regimen changed to cefepime/vanco. * SCr stable at this time, but elevated from baseline and eCrCL only 19 mL/min Vancomycin * Goal vancomycin trough 15-20 mcg/mL * Not AUC candidate based on CrCL < 30 * Vanco 20 mg/kg loading dose yesterday produced a 14 hour level of 15.4 mcg/mL this AM * Will give additional 15 mg/kg dose and check random with AM labs tomorrow Plan * Vancomycin 15 mg/kg IV x1 this AM * Random with AM labs tomorrow Pharmacy will continue to follow and will adjust dose/frequency as necessary. Thank you.
[2021-05-09] MEDS ORDERED: FUROSEMIDE 40 MG in SYRINGE 0 ML IV ONE (11:15)
--- NOTE | 2021-05-09 15:35 | Hospitalist Progress Note ---
Date of Service May 09, 2021 Assessment & Plan (1) Acute respiratory failure with hypoxia: breathing a little better today, with grunting and wheezing gave a dose of Solu Medrol 40mg IV CXR with edema, effusions continue Lasix 40mg IV qAM to help with urine output, likely has CKD stage IV she is DNR/DNI, provide as much support as possible (2) Altered mental status: Suspect this is multifactorial as there are multiple other medical issues present that would contribute to this could be related to infection, now with MRSA swab positive, add Vanco and change to Cefepime with renal function could be related to KANWAL, Cr is 2.2, appreciate nephrology consultation could be related to hepatic encephalopathy given her cirrhosis, continue Lactulose TID, Rifaximin BID, ammonia minimally elevated at 39 MRI brain negative for stroke, bleed, tumor no real improvement today, continue antibiotics, tube feeds family set short term goal of seeing if her mental status will improve over the weekend if not making any improvement then likely change to RN GYN (3) Acute kidney injury: May be secondary to prerenal azotemia/dehydration, most likely due to sepsis, ATN stopped fluids on 05/08 given volume overload on CXR and worsening respiratory status treat NAGMA appreciate nephrology consult michele in place for accurate UO measurements making urine, she is non-oliguric continue Lasix 40mg IV qAM daily BMP (4) UTI (urinary tract infection): urine culture with Klebsiella, sensitive to Cefepime but dose dependent, d/w pharmacy (5) Pneumonia: possible pneumonia Chest x-ray showing bilateral airspace opacities, they suggested that this may be pulmonary edema. However, patient has reported dysphagia with recent procedure, aspiration pneumonia certainly concern continue Vanco and Cefepime worsening respiratory status, most likely due to volume overload (6) Dysphagia: Patient has recent ERCP with stent placement. Reported that time notes narrowing in the lower third of the main bile duct that was concerning for possible underlying neoplasm Will keep n.p.o. for now NGT in place (7) Diabetes mellitus with diabetic polyneuropathy: Patient hypoglycemic during her evaluation in ER, may be contribute to her confusion Will place patient on a low sliding scale only for now Keep n.p.o. secondary to reported dysphagia (8) Benign essential hypertension: BP coming up now that she is volume resuscitated use Lasix to help make urine (9) Severe sepsis: due to UTI, possible pneumonia vitals stable but with encephalopathy has renal failure and respiratory failure as well as cirrhosis poor prognosis (10) Oligouria: Lasix 40mg IV daily (11) Liver metastases: notes lesions on CT consistent with possible liver mets fits with possible malignancy in common bile duct will discuss further with GI, they have plans for EUS and biopsy as outpatient discussed the possible malignancy her family they agree she is in no condition for EUS and biopsy and that she could not go through any type of treatment Admission and Anticipated Discharge Date Admission Date: May 06, 2021 Subjective patient still not very responsive, will barely open her eyes appears to have some degree of distress with breathing, end expiratory wheeze and grunt reviewed labs: Cr 2.2, WBC 15k, Hb 10.8, K 3.8, CO2 18 had a decent response to Lasix last night, will repeat Lasix 40mg IV this morning met with patient's , son and daughter in law at the bedside explained the reasons for her dramatic decline the past few weeks discussed the likely GI malignancy with liver lesions suggesting metastatic disease discussed her renal failure, acidosis, UTI, pneumonia, cirrhosis and elevated ammonia level explained that her prognosis is very poor we agreed for a short term goal of seeing if her mental status can improve over the weekend they confirmed she is a DNR/DNI if she gets worse agreed to continue NG tube with tube feeds and lactulose total time of meeting was 25 minutes Review of Systems Review of Systems: Unobtainable due to cognitive status Physical Exam Constitutional: well developed, well nourished, + altered mental status, comfortable and + lethargic; no acute distress ENMT: Mouth: + dry oral mucous membranes Neck: trachea midline, no thyromegaly Respiratory: normal respiratory effort, lungs clear to auscultation + labored breathing, + tachypneic, + audible wheezes and + grunting Auscultation: + diminished lung sounds (bases) and + rales Cardiovascular: RRR, no murmur, no edema Gastrointestinal (Abdomen): Inspection/Auscultation: abdomen normal to inspection and + hypoactive bowel sounds Percussion/Palpation: abdomen soft and + tympanic to percussion; abdomen nontender Musculoskeletal: Head/Neck/Chest: normocephalic, head atraumatic and neck supple Extremities: extremities normal to inspection; no cyanosis, no clubbing and no petechiae Skin: no rashes, warm and dry Neurologic: CN's II-XI intact bilaterally, moves all extremities, + confused and + obtunded; no focal motor deficits Results & Data Results & Data ([facility]) Vital Signs (Past 12 Hours) Vital Signs Temp Pulse Pulse Resp BP Pulse Ox 05/09/21 15:28 36.4 C L 81 22 166/80 H 93 05/09/21 12:00 37.0 C 69 18 142/63 H 95 05/09/21 08:12 37.0 C 77 20 135/95 92 05/09/21 08:00 77 Laboratory Results Laboratory Results - last 24 hr 05/06/21 05/08/21 05/08/21 09:58 18:02 20:45 WBC 13.05 H RBC 3.30 L Hgb 10.8 L D Hct 32.4 L MCV 98.2 D MCH 32.7 MCHC 33.3 RDW Std Deviation 60.4 H RDW Coeff of Allyson 16.7 H Plt Count 101 L MPV 11.4 H Immature Gran % (Auto) 1.1 Neut % (Auto) 81.2 Lymph % (Auto) 5.7 Blanco % (Auto) 11.8 Eos % (Auto) 0.0 Baso % (Auto) 0.2 Neut # (Auto) 10.60 H Lymph # (Auto) 0.75 L Blanco # (Auto) 1.54 H Eos # (Auto) 0.00 Baso # (Auto) 0.02 Immature Gran # (Auto) 0.14 H ABG pH ABG pCO2 ABG pO2 ABG HCO3 ABG O2 Saturation ABG Base Excess Myles Test Barometric Pressure Oxygen Given Sodium Potassium Chloride Carbon Dioxide Anion Gap BUN Creatinine Est Cr Clr Drug Dosing Est GFR ( Amer) Est GFR (Non-Af Amer) BUN/Creatinine Ratio Glucose POC Glucose 137 H Lactate Calcium Ammonia Random Vancomycin Blood Type O Positive Antibody Screen NEGATIVE Crossmatch See Detail 05/08/21 05/08/21 05/08/21 20:45 20:45 20:45 WBC RBC Hgb Hct MCV MCH MCHC RDW Std Deviation RDW Coeff of Allyson Plt Count MPV Immature Gran % (Auto) Neut % (Auto) Lymph % (Auto) Blanco % (Auto) Eos % (Auto) Baso % (Auto) Neut # (Auto) Lymph # (Auto) Blanco # (Auto) Eos # (Auto) Baso # (Auto) Immature Gran # (Auto) ABG pH ABG pCO2 ABG pO2 ABG HCO3 ABG O2 Saturation ABG Base Excess Myles Test Barometric Pressure Oxygen Given Sodium 138 Potassium 3.9 Chloride 113 H Carbon Dioxide 14 L Anion Gap 11.0 BUN 36 H Creatinine 2.27 H Est Cr Clr Drug Dosing 19.3 Est GFR ( Amer) 24.4 Est GFR (Non-Af Amer) 21.0 BUN/Creatinine Ratio 16.0 Glucose 135 H POC Glucose Lactate 1.0 Calcium 8.0 L Ammonia 56.8 H Random Vancomycin Blood Type Antibody Screen Crossmatch 05/08/21 05/08/21 05/09/21 20:45 23:51 05:49 WBC 15.83 H RBC 3.37 L Hgb 10.8 L Hct 33.1 L MCV 98.2 MCH 32.0 MCHC 32.6 RDW Std Deviation 61.3 H RDW Coeff of Allyson 17.5 H Plt Count 154 D MPV 10.6 H Immature Gran % (Auto) Neut % (Auto) Lymph % (Auto) Blanco % (Auto) Eos % (Auto) Baso % (Auto) Neut # (Auto) Lymph # (Auto) Blanco # (Auto) Eos # (Auto) Baso # (Auto) Immature Gran # (Auto) ABG pH 7.30 L ABG pCO2 34 L ABG pO2 80 ABG HCO3 17 L ABG O2 Saturation 95.0 ABG Base Excess -9.0 Myles Test Pos Barometric Pressure 736.4 Oxygen Given 2L Sodium Potassium Chloride Carbon Dioxide Anion Gap BUN Creatinine Est Cr Clr Drug Dosing Est GFR ( Amer) Est GFR (Non-Af Amer) BUN/Creatinine Ratio Glucose POC Glucose 136 H Lactate Calcium Ammonia Random Vancomycin Blood Type Antibody Screen Crossmatch 05/09/21 05/09/21 05/09/21 05:49 05:49 05:53 WBC RBC Hgb Hct MCV MCH MCHC RDW Std Deviation RDW Coeff of Allyson Plt Count MPV Immature Gran % (Auto) Neut % (Auto) Lymph % (Auto) Blanco % (Auto) Eos % (Auto) Baso % (Auto) Neut # (Auto) Lymph # (Auto) Blanco # (Auto) Eos # (Auto) Baso # (Auto) Immature Gran # (Auto) ABG pH ABG pCO2 ABG pO2 ABG HCO3 ABG O2 Saturation ABG Base Excess Myles Test Barometric Pressure Oxygen Given Sodium 138 Potassium 3.8 Chloride 112 H Carbon Dioxide 18 L Anion Gap 8.0 BUN 34 H Creatinine 2.28 H Est Cr Clr Drug Dosing 19.2 Est GFR ( Amer) 24.2 Est GFR (Non-Af Amer) 20.9 BUN/Creatinine Ratio 15.0 Glucose 112 H POC Glucose 109 H Lactate Calcium 8.3 L Ammonia Random Vancomycin 15.4 Blood Type Antibody Screen Crossmatch 05/09/21 12:14 WBC RBC Hgb Hct MCV MCH MCHC RDW Std Deviation RDW Coeff of Allyson Plt Count MPV Immature Gran % (Auto) Neut % (Auto) Lymph % (Auto) Blanco % (Auto) Eos % (Auto) Baso % (Auto) Neut # (Auto) Lymph # (Auto) Blanco # (Auto) Eos # (Auto) Baso # (Auto) Immature Gran # (Auto) ABG pH ABG pCO2 ABG pO2 ABG HCO3 ABG O2 Saturation ABG Base Excess Myles Test Barometric Pressure Oxygen Given Sodium Potassium Chloride Carbon Dioxide Anion Gap BUN Creatinine Est Cr Clr Drug Dosing Est GFR ( Amer) Est GFR (Non-Af Amer) BUN/Creatinine Ratio Glucose POC Glucose 148 H Lactate Calcium Ammonia Random Vancomycin Blood Type Antibody Screen Crossmatch Medications Administered Current Inpatient Medications Albuterol (Albuterol Hfa 8 Gm Inhaler) 2 puffs INH Q6H PRN PRN Reason: Shortness Of Breath Stop: 06/05/21 15:09 Albuterol (Albut/Ipratrop 3mg/0.5mg Neb 3 Ml Vial) 3 ml NEB Q2R PRN PRN Reason: Dyspnea Stop: 06/07/21 12:25 Last Admin: 05/08/21 13:37 Dose: 3 ml Documented by: Atorvastatin Calcium (Atorvastatin 40 Mg Tab) 80 mg PO HS DONA Stop: 06/05/21 20:59 Last Admin: 05/08/21 21:11 Dose: 80 mg Documented by: Benzonatate (Benzonatate 100 Mg Capsule) 100 mg PO TID PRN PRN Reason: Cough Stop: 06/05/21 15:09 Dextrose (Dextrose 50% 50 Ml Syringe) 25 - 50 ml IV UD PRN; Protocol PRN Reason: Hypoglycemia Protocol Stop: 06/05/21 15:09 Enteral Nutritional Formula (Peptamen 1.5 Jeff 1,000 Ml Bag) 1,000 ml NG UD DONA; Protocol Stop: 06/07/21 12:59 Last Admin: 05/08/21 13:46 Dose: 1,000 ml Documented by: Ergocalciferol (Ergocalciferol 50,000 Units 1250 Mcg Cap) 50,000 units PO Th@0900 DONA Stop: 06/07/21 08:59 Last Admin: 05/08/21 08:45 Dose: Not Given Documented by: Fluticasone Furoate (Fluticasone Furoate 100mcg 14 Puffs/Inhaler) 1 puffs INH DAILY [facility] Stop: 06/06/21 08:59 Last Admin: 05/09/21 08:55 Dose: Not Given Documented by: Fluticasone Propionate (Fluticasone Propionate Na Spr 16 Gm Btl) 2 sprays NA QAM [facility] Stop: 06/06/21 08:59 Last Admin: 05/09/21 08:55 Dose: Not Given Documented by: Glucagon (Glucagon For Inj 1 Mg Vial) 1 mg SQ UD PRN; Protocol PRN Reason: Hypoglycemia Protocol Stop: 06/05/21 15:09 Glucose (Glucose 10 Tabs/Tube) 4 - 8 tabs PO UD PRN; Protocol PRN Reason: Hypoglycemia Protocol Stop: 06/05/21 15:09 Glucose (Glucose 40% Gel 15 Gm Tube) 15 - 30 gm PO UD PRN; Protocol PRN Reason: Hypoglycemia Protocol Stop: 06/05/21 15:09 Heparin Sodium (Porcine) (Heparin Sod 5,000 Unit/0.5 Ml Vial) 5,000 units SQ Q8 DONA Stop: 06/05/21 15:09 Last Admin: 05/08/21 05:43 Dose: 5,000 units Documented by: Cefepime HCl 2,000 mg/ Syringe 20 mls @ 5 mls/min IV DAILY@1600 DONA; Protocol Stop: 05/15/21 15:59 Last Admin: 05/08/21 16:17 Dose: 5 mls/min Documented by: Furosemide 40 mg/ Syringe 4 mls @ 4 mls/min IV QAM [facility] Stop: 06/09/21 08:59 Insulin Aspart (Insulin Aspart 100 Units/Ml 3 Ml Pen) 0 units SC Q6 DONA Stop: 06/06/21 00:00 Last Admin: 05/09/21 12:17 Dose: 1 units Documented by: Lactulose (Lactulose Syrup 20 Gm/30 Ml Udc) 20 gm PO BID DONA Stop: 06/07/21 20:59 Last Admin: 05/09/21 08:53 Dose: 20 gm Documented by: Lansoprazole (Lansoprazole 30 Mg Soltab) 30 mg NG DAILYBB DONA Stop: 06/08/21 06:29 Last Admin: 05/09/21 06:32 Dose: 30 mg Documented by: Miscellaneous (Azelastine 137 Mcg (0.1 %) [place] ~ Order Awaiting Action) 1 ea N/A QS DONA Stop: 06/05/21 15:59 Last Admin: 05/09/21 08:23 Dose: Not Given Documented by: Miscellaneous (Carbohydrates For Hypoglycemia ) 15 - 30 gm PO UD PRN PRN Reason: Hypoglycemia Protocol Stop: 06/05/21 15:09 Miscellaneous Information (Vancomycin Consult Active) 1 ea N/A UD PRN PRN Reason: Consult Stop: 06/07/21 15:40 Miscellaneous Information (Cefepime Consult Active) 1 ea N/A UD PRN PRN Reason: Consult Stop: 06/07/21 15:39 Multivitamins/Minerals (Calcium 600mg + Vit D 400 Iu Tab) 1 tab PO BID [facility] Stop: 06/05/21 20:59 Last Admin: 05/09/21 08:53 Dose: 1 tab Documented by: Oxcarbazepine (Oxcarbazepine 150 Mg Tablet) 300 mg PO BID [facility] Stop: 06/05/21 20:59 Last Admin: 05/09/21 08:53 Dose: 300 mg Documented by: Petrolatum (Butt Paste (Zinc Oxide 16%) 171 Appln/57 Gm Jar) 1 appln EXT BID [facility] Stop: 06/05/21 20:59 Last Admin: 05/09/21 08:54 Dose: 1 appln Documented by: Potassium Chloride (Potassium Chloride 20 Meq/15 Ml Udc) 20 meq NG BID [facility] Stop: 06/08/21 20:59 Rifaximin (Rifaximin 550 Mg Tablet) 550 mg PO BID [facility] Stop: 06/06/21 20:59 Last Admin: 05/09/21 08:53 Dose: 550 mg Documented by: Senna/Docusate Sodium (Docusate Sodium/Senna 50/8.6mg Tab) 1 tab PO QDL PRN PRN Reason: Constipation Stop: 06/05/21 15:09 Sterile Water (Tube Feeding Water Flush) 30 ml NG Q4H DONA Stop: 06/07/21 12:59 Last Admin: 05/09/21 12:06 Dose: 30 ml Documented by: Umeclidinium/Vilanterol (Umeclidinium/Vilanterol 62.5/25mcg 7 Puffs/Inhaler) 1 puffs INH DAILY DONA Stop: 06/06/21 08:59 Last Admin: 05/09/21 08:55 Dose: Not Given Documented by: PG Care Time/CCT Total # of Minutes Spent Total Time Spent: 65 Total Time Spent with Patient: Total time spent is greater than 50% in coordination of care (as documented) at patient's floor/unit and/or counseling patient: 40 minutes spent on chart, discussed with Dr. Sanchez, nephrology as well as [facility] GI group two separate visits with patient in the morning documentation 25 minutes spent on family meeting at the bedside Prolonged Care Time Prolonged Care Time: Yes Total Prolonged Care Time: 35 Coding Level of Care Code 08692 Subseq Hosp Care Lvl 3 (25 - SIGNIFICANT, SEPARATELY IDENTIFIABLE ) Diagnoses Acute respiratory failure with hypoxia J96.01 Altered mental status R41.0 Altered mental status type: delirium Acute kidney injury N17.9 UTI (urinary tract infection) N30.00 Hematuria presence: without hematuria Urinary tract infection type: acute cystitis Pneumonia J18.9 Dysphagia R13.10 Diabetes mellitus with diabetic polyneuropathy E11.42 Diabetes mellitus long-term insulin use: unspecified long-term insulin use status Diabetes mellitus type: type 2 Benign essential hypertension I10 Severe sepsis A41.9; R65.20 Oligouria R34 Liver metastases C78.7 Additional Codes Prolonged Care Time - Prolonged Care Time: Yes ([id number]) (1) UTI (urinary tract infection) Hematuria presence: without hematuria Urinary tract infection type: acute cystitis Qualified Code(s): N30.00 - Acute cystitis without hematuria (2) Diabetes mellitus with diabetic polyneuropathy 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
[2021-05-09] MEDS: CEFEPIME 2,000 MG in SYRINGE 7.5 ML IV SCH (16:56)
--- NOTE | 2021-05-09 17:31 | Nephrology Progress Note ---
Date of Service May 09, 2021 Assessment & Plan (1) Acute kidney injury: ongoing from prior hospital stay. stage 1 KANWAL on CKD 3B w/ baseline creatinine (last drawn 09/2020) 1.6 and w/ KANWAL at [facility] where she was admitted 04/22-04/28> Presenting creatinine at [facility] 2.5; peak creatinine 2.7; d/c creatinine 2.1. This in the setting of recent cholangitis and bacteremia. concern for malignancy given her liver lesion, biliary stricture w/ atypical cells on brushing. her presenting creatinine here was 2.2, plateau'd at 2.3 today. not oliguric. chemistries acceptable w/ mild hyperchloremic NAGMA. likeliest cause of renal failure here is ATN in setting of sepsis/renal ischemia; other possibility is CKD progression (no labs since fall 2019). anemia notable and worsening -transfuse for hgb <7 -IVF stopped and on lasix -no indication for urgent dialysis; w/ her code status and guarded prx she is a poor candidate -daily bmp -cont michele and strict i/o >pharmacy dosing vanco by level which is appropriate; did confirm w/ pharmacy (2) UTI (urinary tract infection): urine cx and ua both c/w uti; GNR on cx > on zosyn but now cefepime/vanco for this and HACP (3) Acute respiratory failure with hypoxia: IVF off since 05/08; now on lasix 40 mg IV bid (to go to 40 mg IV daily 05/10 AM) w/ K 20 mEq bid -daily bmp -cont steroids, nebs, abtx Present on Admission?: No Admission and Anticipated Discharge Date Admission Date: May 06, 2021 Subjective seen on rounds at 1010 this am approx; pt was on oxymask and minimally interactive - could not do ros but did look sob; hgb dropping further and for pRBC Review of Systems Review of Systems: All systems reviewed & are unremarkable except as noted in Subjective Physical Exam Constitutional: well developed, + acute distress (mild distress - moaning, grunting), + obese and + altered mental status ENMT: Ears: no external ear abnormality Nose: no external nose abnormality Mouth: + dry oral mucous membranes Neck: no nuchal rigidity Respiratory: + labored breathing and + paradoxical thoraco-abdominal movement Auscultation: + crackles (BL inspiratory) and + wheezes (BL insp) Cardiovascular: RRR, no murmur, no edema Rate/Rhythm: regular rate and regular rhythm Extremities: + edema (BL upper extremities; minimal dependent or lower extremities) Gastrointestinal (Abdomen): Inspection/Auscultation: normal bowel sounds Percussion/Palpation: abdomen soft; abdomen nontender Musculoskeletal: Extremities: strength 5/5 throughout Skin: no rashes, warm and dry Neurologic: + obtunded Genitourinary: michele w/ scant urine Results & Data ([facility]) Vital Signs (Past 12 Hours) Vital Signs Temp Pulse Pulse Resp BP Pulse Ox 05/09/21 15:28 36.4 C L 81 22 166/80 H 93 05/09/21 12:00 37.0 C 69 18 142/63 H 95 05/09/21 08:12 37.0 C 77 20 135/95 92 05/09/21 08:00 77 (1) UTI (urinary tract infection) Urinary tract infection type: acute cystitis Hematuria presence: without hematuria Qualified Code(s): N30.00 - Acute cystitis without hematuria
[2021-05-09] MEDS: ATORVASTATIN 40 MG TAB PO SCH (19:46)
[2021-05-09] MEDS: POTASSIUM CHLORIDE 20 MEQ/15 ML UDC NG SCH (20:07)
[2021-05-09] MEDS ORDERED: ONDANSETRON INJ 2 MG/ML 2 ML VIAL IV PRN (20:21)
[2021-05-10] MEDS: INSULIN ASPART 100 UNITS/ML 3 ML PEN SC SCH ×4 (00:01→17:43)
[2021-05-10 06:11] LABS: Hematocrit (blood only) 31.5 % (37-47); Hemoglobin 10.4 g/dL (12.0-16.0); Mean Corpuscular Hemoglobin 32.1 pg (25-34); Mean Corpuscular Volume 97.2 fL (80-100); Mean Platelet Volume 11.1 fL (7.4-10.4); Platelet Count 155 K/uL (130-400); RDW Coefficient of Variation 17.2 % (11.5-14.5); Red Blood Count 3.24 M/uL (4.2-5.4); White Blood Count 12.63 K/uL (4.8-10.8)
[2021-05-10] MEDS: TUBE FEEDING WATER FLUSH NG SCH ×5 (06:19→19:52)
[2021-05-10 06:41] LABS: BUN Creatinine Ratio 16.6 (10-20); Calcium 8.9 mg/dl (8.5-10.1); Creatinine Clr Calc Pharmacy 20.8 ml/min; Est GFR (African American) 26.3 ml/min; Est GFR (Non-African American) 22.7 ml/min; Potassium 3.9 mmol/L (3.5-5.1)
--- NOTE | 2021-05-10 08:29 | Pharmacy Report ---
Pharmacy Abx Dose Short Note - Date of Service May 10, 2021 - Assessment & Plan Assessment * 70 year old F receiving cefepime and vancomycin for treatment of HAP/UTI. MRSA nasal (+), Blood cx NGTD. * SCr trending down- 2.13mg/dL today; CrCL ~ 21ml/min. Vancomycin dosing by levels. Random level drawn this AM was ~ 22hr level. Plan Vancomycin * Goal vancomycin trough 15-20 mcg/mL * Not AUC candidate based on CrCL < 30 * Vanco 1gm (~15mg/kg) dose yesterday produced a slightly supratherapeutic level of 21.2mcg/mL this AM. * Safe to re-dose with vancomycin (15mg/kg X 1) at this time (additional 3hr of clearance since level resulted). * Will obtain a random level in 24hr. Pharmacy will continue to follow and will adjust dose/frequency as necessary. Thank you.
[2021-05-10] MEDS: FLUTICASONE FUROATE 100MCG 14 PUFFS/INHALER INH SCH (08:34)
[2021-05-10] MEDS: LANSOPRAZOLE 30 MG SOLTAB NG SCH (08:34)
[2021-05-10] MEDS: CALCIUM 600MG + VIT D 400 IU TAB PO SCH ×2 (08:34→19:50)
[2021-05-10] MEDS: FLUTICASONE PROPIONATE NA SPR 16 GM BTL SCH (08:35)
[2021-05-10] MEDS: rifAXIMin 550 MG TABLET PO SCH ×2 (08:35→19:50)
[2021-05-10] MEDS: OXcarbazepine 150 MG TABLET PO SCH ×2 (08:35→19:49)
[2021-05-10] MEDS: UMECLIDINIUM/VILANTEROL 62.5/25MCG 7 PUFFS/INHALER INH SCH (08:36)
[2021-05-10] MEDS: BUTT PASTE (ZINC OXIDE 16%) 171 APPLN/57 GM JAR EXT SCH ×2 (08:36→19:54)
[2021-05-10] MEDS: FUROSEMIDE 40 MG in SYRINGE 0 ML IV SCH (08:40)
[2021-05-10] MEDS: POTASSIUM CHLORIDE 20 MEQ/15 ML UDC NG SCH ×2 (08:41→19:52)
[2021-05-10] MEDS ORDERED: VANCOMYCIN HCL 1,000 MG in SODIUM CHLORIDE 0.9% 250 ML IV ONE (09:00)
--- NOTE | 2021-05-10 09:57 | Nephrology Progress Note ---
Date of Service May 10, 2021 Assessment & Plan (1) Acute kidney injury: ongoing from prior hospital stay. stage 1 KANWAL on CKD 3B w/ baseline creatinine (last drawn 09/2020) 1.6 and w/ KANWAL at [facility] where she was admitted 04/22-04/28> Presenting creatinine at [facility] 2.5; peak creatinine 2.7; d/c creatinine 2.1. This in the setting of recent cholangitis and bacteremia. concern for malignancy given her liver lesion, biliary stricture w/ atypical cells on brushing. her presenting creatinine here was 2.2, plateau'd at 2.3 today. not oliguric. chemistries acceptable w/ mild hyperchloremic NAGMA. likeliest cause of renal failure here is ATN in setting of sepsis/renal ischemia; other possibility is CKD progression (no labs since fall 2019). anemia notable and worsening -transfuse for hgb <7 -IVF stopped and on lasix. -Patinet is now DNR/DNI, - For symptomatic management, continue with 40 mg IV BID Lasix. (2) UTI (urinary tract infection): urine cx and ua both c/w uti; GNR on cx > on zosyn but now cefepime/vanco for this and HACP (3) Acute respiratory failure with hypoxia: Patinet id now DNR. For symptomatic [place] Admission and Anticipated Discharge Date Admission Date: May 06, 2021 Subjective In Respiratory distress, wheezing. Looks ill. Review of Systems Review of Systems: Unobtainable due to cognitive status Physical Exam Physical Exam: Confused, ill appearing in respiratory distress, Bilateral wheeze, and rhonchi Results & Data ([facility]) Vital Signs (Past 12 Hours) Vital Signs Temp Pulse Pulse Resp BP Pulse Ox 05/10/21 07:02 36.0 C L 72 20 142/62 H 97 05/10/21 07:00 79 05/10/21 02:54 36.3 C L 75 19 117/80 97 05/10/21 00:00 81 05/09/21 22:47 37.4 C 81 17 138/67 95 Laboratory Results 05/10/21 05:47 05/10/21 05:47 (1) UTI (urinary tract infection) Hematuria presence: without hematuria Urinary tract infection type: acute cystitis Qualified Code(s): N30.00 - Acute cystitis without hematuria
--- NOTE | 2021-05-10 15:17 | Hospitalist Progress Note ---
Date of Service May 10, 2021 Assessment & Plan (1) Acute respiratory failure with hypoxia: breathing a little better the past two days, far less grunting and wheezing CXR with edema, effusions continue Lasix 40mg IV qAM to help with urine output, likely has CKD stage IV she is DNR/DNI, provide as much support as possible but family understands grave prognosis (2) Altered mental status: Suspect this is multifactorial as there are multiple other medical issues present that would contribute to this could be related to infection, continue Vanco and Cefepime could be related to KANWAL, Cr is 2.1, appreciate nephrology consultation could be related to hepatic encephalopathy given her cirrhosis, continue Lactulose TID, Rifaximin BID, ammonia going up at 56 MRI brain negative for stroke, bleed, tumor still no real improvement today, continue antibiotics, tube feeds family set short term goal of seeing if her mental status will improve over the weekend if not making any improvement then likely change to [employer] on Wednesday, will plan for palliative consult at that time (3) Acute kidney injury: May be secondary to prerenal azotemia/dehydration, most likely due to sepsis, ATN stopped fluids on 05/08 given volume overload on CXR and worsening respiratory status treat NAGMA appreciate nephrology consult michele in place for accurate UO measurements making urine, she is non-oliguric continue Lasix 40mg IV qAM, nephrology mentioned that this might be her new baseline as she had not had labs for some time prior to admission at [place] daily BMP (4) UTI (urinary tract infection): urine culture with Klebsiella, sensitive to Cefepime but dose dependent, d/w pharmacy (5) Pneumonia: possible pneumonia Chest x-ray showing bilateral airspace opacities, they suggested that this may be pulmonary edema. However, patient has reported dysphagia with recent procedure, aspiration pneumonia certainly concern continue Vanco and Cefepime breathing is stable today not coughing as much (6) Dysphagia: Patient has recent ERCP with stent placement. Reported that time notes narrowing in the lower third of the main bile duct that was concerning for possible underlying neoplasm Will keep n.p.o. for now NGT in place for tube feeds while encephalopathic (7) Diabetes mellitus with diabetic polyneuropathy: Will place patient on a low sliding scale only for now Keep n.p.o. secondary to reported dysphagia (8) Benign essential hypertension: BP coming up now that she is volume resuscitated use Lasix to help make urine (9) Severe sepsis: due to UTI, possible pneumonia vitals stable but with encephalopathy has renal failure and respiratory failure as well as cirrhosis poor prognosis (10) Oligouria: Lasix 40mg IV daily (11) Liver metastases: notes lesions on CT consistent with possible liver mets fits with possible malignancy in common bile duct will discuss further with GI, they have plans for EUS and biopsy as outpatient discussed the possible malignancy her family they agree she is in no condition for EUS and biopsy and that she could not go through any type of treatment Admission and Anticipated Discharge Date Admission Date: May 06, 2021 Subjective patient still not very responsive today, would not open eyes or follow commands for me family said that they got her to open eyes yesterday and responded a little bit when her told her that he loved her but family agrees that she is far less responsive today discussed that Cr is 2.1, she seems to be responding well to the Lasix 40mg IV, making more urine, it is clear WBC going down to 12k, no fever and BP is actually elevated at times I discussed that she also has cirrhosis on imaging as I forgot to discuss that with them yesterday they had no recollection of being told she has cirrhosis in the past I explained that it is another thing working against her I discussed the poor condition of her skin over her sacrum and buttocks from diarrhea they said she had developed skin wounds while at [facility] they are in agreement with seeing her again tomorrow and likely transitioning to comfort care after that there are some more family members coming into see her tomorrow Review of Systems Review of Systems: Unobtainable due to cognitive status and Unobtainable due to reduced consciousness Physical Exam Constitutional: well developed, + altered mental status, comfortable and + lethargic; no acute distress ENMT: Mouth: + dry oral mucous membranes Neck: trachea midline, no thyromegaly Respiratory: normal respiratory effort, lungs clear to auscultation + audible wheezes and + grunting Auscultation: + diminished lung sounds (bases) Cardiovascular: RRR, no murmur, no edema Gastrointestinal (Abdomen): Inspection/Auscultation: abdomen normal to inspection and + hypoactive bowel sounds Percussion/Palpation: abdomen soft and + tympanic to percussion; abdomen nontender Musculoskeletal: Head/Neck/Chest: normocephalic, head atraumatic and neck supple Extremities: extremities normal to inspection; no cyanosis, no clubbing and no petechiae Skin: no rashes, warm and dry Neurologic: CN's II-XI intact bilaterally, moves all extremities, + confused and + obtunded; no focal motor deficits Results & Data Results & Data ([facility]) Vital Signs (Past 12 Hours) Vital Signs Temp Pulse Pulse Resp BP Pulse Ox 05/10/21 11:23 36.3 C L 68 17 133/66 97 05/10/21 07:02 36.0 C L 72 20 142/62 H 97 05/10/21 07:00 74 Laboratory Results Laboratory Results - last 24 hr 05/09/21 05/09/21 05/10/21 18:36 23:53 05:47 WBC RBC Hgb Hct MCV MCH MCHC RDW Std Deviation RDW Coeff of Allyson Plt Count MPV Sodium Potassium Chloride Carbon Dioxide Anion Gap BUN Creatinine Est Cr Clr Drug Dosing Est GFR ( Amer) Est GFR (Non-Af Amer) BUN/Creatinine Ratio Glucose POC Glucose 174 H 179 H Calcium Random Vancomycin 21.2 05/10/21 05/10/21 05/10/21 05:47 05:47 06:00 WBC 12.63 H RBC 3.24 L Hgb 10.4 L Hct 31.5 L MCV 97.2 MCH 32.1 MCHC 33.0 RDW Std Deviation 61.0 H RDW Coeff of Allyson 17.2 H Plt Count 155 MPV 11.1 H Sodium 140 Potassium 3.9 Chloride 114 H Carbon Dioxide 21 Anion Gap 5.0 BUN 35 H Creatinine 2.13 H Est Cr Clr Drug Dosing 20.8 Est GFR ( Amer) 26.3 Est GFR (Non-Af Amer) 22.7 BUN/Creatinine Ratio 16.6 Glucose 137 H POC Glucose 148 H Calcium 8.9 Random Vancomycin 05/10/21 05/10/21 07:13 11:27 WBC RBC Hgb Hct MCV MCH MCHC RDW Std Deviation RDW Coeff of Allyson Plt Count MPV Sodium Potassium Chloride Carbon Dioxide Anion Gap BUN Creatinine Est Cr Clr Drug Dosing Est GFR ( Amer) Est GFR (Non-Af Amer) BUN/Creatinine Ratio Glucose POC Glucose 150 H 131 H Calcium Random Vancomycin Medications Administered Current Inpatient Medications Albuterol (Albuterol Hfa 8 Gm Inhaler) 2 puffs INH Q6H PRN PRN Reason: Shortness Of Breath Stop: 06/05/21 15:09 Albuterol (Albut/Ipratrop 3mg/0.5mg Neb 3 Ml Vial) 3 ml NEB Q2R PRN PRN Reason: Dyspnea Stop: 06/07/21 12:25 Last Admin: 05/08/21 13:37 Dose: 3 ml Documented by: Atorvastatin Calcium (Atorvastatin 40 Mg Tab) 80 mg PO HS DONA Stop: 06/05/21 20:59 Last Admin: 05/09/21 19:46 Dose: 80 mg Documented by: Benzonatate (Benzonatate 100 Mg Capsule) 100 mg PO TID PRN PRN Reason: Cough Stop: 06/05/21 15:09 Dextrose (Dextrose 50% 50 Ml Syringe) 25 - 50 ml IV UD PRN; Protocol PRN Reason: Hypoglycemia Protocol Stop: 06/05/21 15:09 Enteral Nutritional Formula (Peptamen 1.5 Jeff 1,000 Ml Bag) 1,000 ml NG UD DONA; Protocol Stop: 06/07/21 12:59 Last Admin: 05/08/21 13:46 Dose: 1,000 ml Documented by: Ergocalciferol (Ergocalciferol 50,000 Units 1250 Mcg Cap) 50,000 units PO Th@0900 DONA Stop: 06/07/21 08:59 Last Admin: 05/08/21 08:45 Dose: Not Given Documented by: Fluticasone Furoate (Fluticasone Furoate 100mcg 14 Puffs/Inhaler) 1 puffs INH DAILY DONA Stop: 06/06/21 08:59 Last Admin: 05/10/21 08:34 Dose: Not Given Documented by: Fluticasone Propionate (Fluticasone Propionate Na Spr 16 Gm Btl) 2 sprays NA QAM DONA Stop: 06/06/21 08:59 Last Admin: 05/10/21 08:35 Dose: 2 sprays Documented by: Glucagon (Glucagon For Inj 1 Mg Vial) 1 mg SQ UD PRN; Protocol PRN Reason: Hypoglycemia Protocol Stop: 06/05/21 15:09 Glucose (Glucose 10 Tabs/Tube) 4 - 8 tabs PO UD PRN; Protocol PRN Reason: Hypoglycemia Protocol Stop: 06/05/21 15:09 Glucose (Glucose 40% Gel 15 Gm Tube) 15 - 30 gm PO UD PRN; Protocol PRN Reason: Hypoglycemia Protocol Stop: 06/05/21 15:09 Heparin Sodium (Porcine) (Heparin Sod 5,000 Unit/0.5 Ml Vial) 5,000 units SQ Q8 [facility] Stop: 06/05/21 15:09 Last Admin: 05/08/21 05:43 Dose: 5,000 units Documented by: Cefepime HCl 2,000 mg/ Syringe 20 mls @ 5 mls/min IV DAILY@1600 DONA; Protocol Stop: 05/15/21 15:59 Last Admin: 05/09/21 16:56 Dose: 5 mls/min Documented by: Furosemide 40 mg/ Syringe 4 mls @ 4 mls/min IV QAM [facility] Stop: 06/09/21 08:59 Last Admin: 05/10/21 08:40 Dose: 4 mls/min Documented by: Insulin Aspart (Insulin Aspart 100 Units/Ml 3 Ml Pen) 0 units SC Q6 [facility] Stop: 06/06/21 00:00 Last Admin: 05/10/21 11:29 Dose: Not Given Documented by: Lansoprazole (Lansoprazole 30 Mg Soltab) 30 mg NG DAILYBB [facility] Stop: 06/08/21 06:29 Last Admin: 05/10/21 08:34 Dose: 30 mg Documented by: Miscellaneous (Azelastine 137 Mcg (0.1 %) [place] ~ Order Awaiting Action) 1 ea N/A QS [facility] Stop: 06/05/21 15:59 Last Admin: 05/10/21 08:34 Dose: Not Given Documented by: Miscellaneous (Carbohydrates For Hypoglycemia ) 15 - 30 gm PO UD PRN PRN Reason: Hypoglycemia Protocol Stop: 06/05/21 15:09 Miscellaneous Information (Vancomycin Consult Active) 1 ea N/A UD PRN PRN Reason: Consult Stop: 06/07/21 15:40 Miscellaneous Information (Cefepime Consult Active) 1 ea N/A UD PRN PRN Reason: Consult Stop: 06/07/21 15:39 Multivitamins/Minerals (Calcium 600mg + Vit D 400 Iu Tab) 1 tab PO BID [facility] Stop: 06/05/21 20:59 Last Admin: 05/10/21 08:34 Dose: 1 tab Documented by: Ondansetron HCl (Ondansetron Inj 2 Mg/Ml 2 Ml Vial) 4 mg IV Q4H PRN PRN Reason: Nausea Stop: 06/08/21 20:20 Last Admin: 05/09/21 20:30 Dose: 4 mg Documented by: Oxcarbazepine (Oxcarbazepine 150 Mg Tablet) 300 mg PO BID [facility] Stop: 06/05/21 20:59 Last Admin: 05/10/21 08:35 Dose: 300 mg Documented by: Petrolatum (Butt Paste (Zinc Oxide 16%) 171 Appln/57 Gm Jar) 1 appln EXT BID [facility] Stop: 06/05/21 20:59 Last Admin: 05/10/21 08:36 Dose: 1 appln Documented by: Potassium Chloride (Potassium Chloride 20 Meq/15 Ml Udc) 20 meq NG BID [facility] Stop: 06/08/21 20:59 Last Admin: 05/10/21 08:41 Dose: 20 meq Documented by: Rifaximin (Rifaximin 550 Mg Tablet) 550 mg PO BID [facility] Stop: 06/06/21 20:59 Last Admin: 05/10/21 08:35 Dose: 550 mg Documented by: Senna/Docusate Sodium (Docusate Sodium/Senna 50/8.6mg Tab) 1 tab PO QDL PRN PRN Reason: Constipation Stop: 06/05/21 15:09 Sterile Water (Tube Feeding Water Flush) 30 ml NG Q4H [facility] Stop: 06/07/21 12:59 Last Admin: 05/10/21 14:59 Dose: 30 ml Documented by: Umeclidinium/Vilanterol (Umeclidinium/Vilanterol 62.5/25mcg 7 Puffs/Inhaler) 1 puffs INH DAILY [facility] Stop: 06/06/21 08:59 Last Admin: 05/10/21 08:36 Dose: Not Given Documented by: PG Care Time/CCT Total # of Minutes Spent Total Time Spent with Patient: Total time spent is greater than 50% in coordination of care (as documented) at patient's floor/unit and/or counseling patient: Coding Level of Care Code 78564 Subseq Hosp Care Lvl 3 Diagnoses Acute respiratory failure with hypoxia J96.01 Altered mental status R41.0 Altered mental status type: delirium Acute kidney injury N17.9 UTI (urinary tract infection) N30.00 Urinary tract infection type: acute cystitis Hematuria presence: without hematuria Pneumonia J18.9 Dysphagia R13.10 Diabetes mellitus with diabetic polyneuropathy E11.42 Diabetes mellitus type: type 2 Diabetes mellitus long filler cigar roller machine insulin use: unspecified long filler cigar roller machine insulin use status Benign essential hypertension I10 Severe sepsis A41.9; R65.20 Oligouria R34 Liver metastases C78.7 (1) Altered mental status Altered mental status type: delirium Qualified Code(s): R41.0 - Disorientation, unspecified (2) UTI (urinary tract infection) Urinary tract infection type: acute cystitis Hematuria presence: without hematuria Qualified Code(s): N30.00 - Acute cystitis without hematuria (3) Diabetes mellitus with diabetic polyneuropathy Diabetes mellitus type: type 2 Diabetes mellitus usp insulin use: unspecified usp insulin use status Qualified Code(s): E11.42 - Type 2 diabetes mellitus with diabetic polyneuropathy
[2021-05-10] MEDS: CEFEPIME 2,000 MG in SYRINGE 7.5 ML IV SCH (16:53)
[2021-05-10] MEDS: PEPTAMEN 1.5 CAL 1,000 ML BAG NG SCH (17:55)
[2021-05-10] MEDS: ATORVASTATIN 40 MG TAB PO SCH (19:49)
[2021-05-11] MEDS: INSULIN ASPART 100 UNITS/ML 3 ML PEN SC SCH ×3 (00:43→12:02)
[2021-05-11] MEDS: TUBE FEEDING WATER FLUSH NG SCH ×6 (05:00→20:53)
[2021-05-11] MEDS: LANSOPRAZOLE 30 MG SOLTAB NG SCH (06:20)
[2021-05-11] MEDS: OXcarbazepine 150 MG TABLET PO SCH (07:33)
[2021-05-11] MEDS: FLUTICASONE PROPIONATE NA SPR 16 GM BTL SCH (07:33)
[2021-05-11] MEDS: POTASSIUM CHLORIDE 20 MEQ/15 ML UDC NG SCH (07:33)
[2021-05-11] MEDS: rifAXIMin 550 MG TABLET PO SCH (07:33)
[2021-05-11] MEDS: CALCIUM 600MG + VIT D 400 IU TAB PO SCH (07:33)
[2021-05-11] MEDS: FUROSEMIDE 40 MG in SYRINGE 0 ML IV SCH (07:35)
[2021-05-11] MEDS: FLUTICASONE FUROATE 100MCG 14 PUFFS/INHALER INH SCH (07:35)
[2021-05-11] MEDS: UMECLIDINIUM/VILANTEROL 62.5/25MCG 7 PUFFS/INHALER INH SCH (07:36)
[2021-05-11] MEDS: BUTT PASTE (ZINC OXIDE 16%) 171 APPLN/57 GM JAR EXT SCH ×2 (07:36→20:53)
[2021-05-11 08:51] LABS: Hematocrit (blood only) 33.2 % (37-47); Hemoglobin 10.9 g/dL (12.0-16.0); Mean Corpuscular Hemoglobin 32.4 pg (25-34); Mean Corpuscular Hgb Conc 32.8 g/dL (32-36); Mean Corpuscular Volume 98.8 fL (80-100); Mean Platelet Volume 10.2 fL (7.4-10.4); Platelet Count 148 K/uL (130-400); RDW Coefficient of Variation 17.3 % (11.5-14.5); RDW Standard Deviation 61.5 fL (36.4-46.3); Red Blood Count 3.36 M/uL (4.2-5.4); White Blood Count 9.93 K/uL (4.8-10.8)
[2021-05-11 09:11] LABS: BUN Creatinine Ratio 19.3 (10-20); Calcium 9.1 mg/dl (8.5-10.1); Creatinine Clr Calc Pharmacy 22.2 ml/min; Est GFR (African American) 28.7 ml/min; Est GFR (Non-African American) 24.8 ml/min; Potassium 4.6 mmol/L (3.5-5.1)
--- NOTE | 2021-05-11 10:26 | Pharmacy Report ---
Pharmacy Abx Dose Short Note - Date of Service May 11, 2021 - Assessment & Plan Assessment 70 year old F receiving cefepime and vancomycin for treatment of HAP/UTI. MRSA nasal (+), Blood cx (-). * SCr trending down- 1.98mg/dL today; CrCL ~ 22ml/min. Vancomycin dosing by levels. Random level drawn this AM was ~ 24hr level. Plan Vancomycin * Random level of 23.5 mcg/mL is supratherapeutic; accumulating. * Based upon estimated PK parameters (est t1/2 ~ 30hrs), will allow additional time for drug clearance and re-dose with 750mg (~11mg/kg) IV X 1 at 2100 tonight. * Goal trough level for PNA: 15-20 mcg/mL * Continue to dose based upon levels. Pharmacy will continue to follow and will adjust dose/frequency as necessary. Thank you.
[2021-05-11 11:34] VITALS: BP 174/86; PULSE 72; TEMP 97.5; O2SAT 97
--- NOTE | 2021-05-11 11:43 | Nephrology Progress Note ---
Date of Service May 11, 2021 Assessment & Plan (1) Acute kidney injury: ongoing from prior hospital stay. stage 1 KANWAL on CKD 3B w/ baseline creatinine (last drawn 09/2020) 1.6 and w/ KANWAL at [facility] [place] where she was admitted 04/22-04/28> Presenting creatinine at [facility] [place] 2.5; peak creatinine 2.7; d/c creatinine 2.1. This in the setting of recent cholangitis and bacteremia. concern for malignancy given her liver lesion, biliary stricture w/ atypical cells on brushing. her presenting creatinine here was 2.2, plateau'd at 2.3 today. not oliguric. chemistries acceptable w/ mild hyperchloremic NAGMA. likeliest cause of renal failure here is ATN in setting of sepsis/renal ischemia; other possibility is CKD progression (no labs since fall 2019). anemia notable and worsening -transfuse for hgb <7 -IVF stopped and on lasix. -Patinet is now DNR/DNI, - For symptomatic management, continue with 40 mg IV Lasix. - family meeting today for goals of care, (2) UTI (urinary tract infection): urine cx and ua both c/w uti; GNR on cx > on zosyn but now cefepime/vanco for this and HACP (3) Acute respiratory failure with hypoxia: Patinet id now DNR. For symptomatic [place] Admission and Anticipated Discharge Date Admission Date: May 06, 2021 Subjective patient still not very responsive today, Looks ill Review of Systems Review of Systems: All systems reviewed & are unremarkable except as noted in HPI & below Physical Exam Physical Exam: Confused, ill appearing in respiratory distress, Bilateral wheeze, and rhonchi Results & Data ([facility]) Vital Signs (Past 12 Hours) Vital Signs Temp Pulse Pulse Resp BP Pulse Ox 05/11/21 11:33 36.4 C L 72 18 174/86 H 97 05/11/21 07:26 36.9 C 76 22 150/69 H 95 05/11/21 07:00 71 05/11/21 06:31 71 05/11/21 03:49 36.9 C 72 18 169/67 H 97 Laboratory Results 05/11/21 08:43 05/11/21 08:43 (1) UTI (urinary tract infection) Urinary tract infection type: acute cystitis Hematuria presence: without hematuria Qualified Code(s): N30.00 - Acute cystitis without hematuria
[2021-05-11] MEDS ORDERED: GLYCOPYRROLATE 0.2 MG/ML VIAL IV PRN (15:39)
[2021-05-11] MEDS ORDERED: STAT IV Infusion **Titration per Protocol STA (15:39)
[2021-05-11] MEDS ORDERED: ONDANSETRON INJ 2 MG/ML 2 ML VIAL IV PRN (15:39)
[2021-05-11] MEDS ORDERED: ATROPINE SULFATE 1% OP SOLN 5 ML BTL SL PRN (15:39)
[2021-05-11] MEDS ORDERED: LORazepam 0.5 MG/1 ML VIAL IV PRN (15:39)
[2021-05-11] MEDS ORDERED: MoRPHine SULFATE 2 MG/ML CARP ONE (15:40)
--- NOTE | 2021-05-11 15:44 | Hospitalist Progress Note ---
Date of Service May 11, 2021 Assessment & Plan (1) Goals of care, counseling/discussion: spent 30 minutes with the family in two separate visits discussed grave prognosis, patient is dying, has suspected metastatic cancer likeliest cause of encephalopathy is hepatic with elevated ammonia really impossible to treat, has not improved with Rifaximin and Lactulose did not help either plus she has wounds on her sacrum family in agreement to transition to [employer] stop all medications start on Morphine drip, use Ativan PRN Scopolamine patch, Atropine drops, Glycopyrrolate (patient has a lot of secretions) offered empathy, ordered bereavement tray, family can stay with patient at the bedside will keep here tonight, if not passing quickly then move to medical floor tomorrow (2) Acute respiratory failure with hypoxia: breathing a little better the past three days, far less grunting and wheezing CXR with edema, effusions treated with Lasix 40mg IV qAM to help with urine output, likely has CKD stage IV she is DNR/DNI, provide as much support as possible but family understands grave prognosis (3) Altered mental status: Suspect this is multifactorial as there are multiple other medical issues present that would contribute to this could be related to infection, continue Vanco and Cefepime could be related to KANWAL, Cr is 1.9, appreciate nephrology consultation could be related to hepatic encephalopathy given her cirrhosis, Rifaximin BID, Lactulose via NG tube, ammonia going up at 56 when last checked despite treatment MRI brain negative for stroke, bleed, tumor no real improvement for 4 days family set short term goal of seeing if her mental status will improve over the weekend mental status did not improve, change to [employer] (4) Acute kidney injury: May be secondary to prerenal azotemia/dehydration, most likely due to sepsis, ATN stopped fluids on 05/08 given volume overload on CXR and worsening respiratory status treat NAGMA appreciate nephrology consult michele in place for accurate UO measurements making urine, she is non-oliguric (5) UTI (urinary tract infection): urine culture with Klebsiella, sensitive to Cefepime but dose dependent, d/w pharmacy (6) Pneumonia: possible pneumonia Chest x-ray showing bilateral airspace opacities, they suggested that this may be pulmonary edema. However, patient has reported dysphagia with recent procedure, aspiration pneumonia certainly concern treated with Vanco and Cefepime breathing is stable today not coughing as much (7) Dysphagia: Patient has recent ERCP with stent placement. Reported that time notes narrowing in the lower third of the main bile duct that was concerning for possible underlying neoplasm Will keep n.p.o. for now NGT in place for tube feeds while encephalopathic, will pull NG tube with comfort as goal (8) Diabetes mellitus with diabetic polyneuropathy: Will place patient on a low sliding scale only for now Keep n.p.o. secondary to reported dysphagia (9) Benign essential hypertension: BP coming up now that she is volume resuscitated use Lasix to help make urine (10) Severe sepsis: due to UTI, possible pneumonia vitals stable but with encephalopathy has renal failure and respiratory failure as well as cirrhosis poor prognosis (11) Oligouria: Lasix 40mg IV daily (12) Liver metastases: notes lesions on CT consistent with possible liver mets fits with possible malignancy in common bile duct will discuss further with GI, they have plans for EUS and biopsy as outpatient discussed the possible malignancy her family they agree she is in no condition for EUS and biopsy and that she could not go through any type of treatment Admission and Anticipated Discharge Date Admission Date: May 06, 2021 Subjective met with 6 family members at the bedside explained current condition, encephalopathy is not improving explained the constellation of issues with cirrhosis, renal failure, pneumonia, UTI and likely biliary cancer patient's as well as children all agreed to comfort measures only started on morphine drip, cancelled all other medications and labs family can stay at the bedside Review of Systems Review of Systems: Unobtainable due to cognitive status and Unobtainable due to reduced consciousness Physical Exam Constitutional: well developed, + altered mental status, comfortable and + lethargic; no acute distress ENMT: Mouth: + dry oral mucous membranes Neck: trachea midline, no thyromegaly Respiratory: normal respiratory effort, lungs clear to auscultation + audible wheezes and + grunting Auscultation: + diminished lung sounds (bases) Cardiovascular: RRR, no murmur, no edema Gastrointestinal (Abdomen): Inspection/Auscultation: abdomen normal to inspection and + hypoactive bowel sounds Percussion/Palpation: abdomen soft and + tympanic to percussion; abdomen nontender Musculoskeletal: Head/Neck/Chest: normocephalic, head atraumatic and neck supple Extremities: extremities normal to inspection; no cyanosis, no clubbing and no petechiae Skin: no rashes, warm and dry Neurologic: CN's II-XI intact bilaterally, + confused and + obtunded; no focal motor deficits Results & Data Results & Data ([facility]) Vital Signs (Past 12 Hours) Vital Signs Temp Pulse Pulse Resp BP Pulse Ox 05/11/21 11:33 36.4 C L 72 18 174/86 H 97 05/11/21 07:26 36.9 C 76 22 150/69 H 95 05/11/21 07:00 71 05/11/21 06:31 71 05/11/21 03:49 36.9 C 72 18 169/67 H 97 Laboratory Results Laboratory Results - last 24 hr 05/10/21 05/10/21 05/11/21 17:37 19:40 00:42 WBC RBC Hgb Hct MCV MCH MCHC RDW Std Deviation RDW Coeff of Allyson Plt Count MPV Sodium Potassium Chloride Carbon Dioxide Anion Gap BUN Creatinine Est Cr Clr Drug Dosing Est GFR ( Amer) Est GFR (Non-Af Amer) BUN/Creatinine Ratio Glucose POC Glucose 140 H 154 H 121 H Calcium Random Vancomycin 05/11/21 05/11/21 05/11/21 06:24 08:43 08:43 WBC 9.93 RBC 3.36 L Hgb 10.9 L Hct 33.2 L MCV 98.8 MCH 32.4 MCHC 32.8 RDW Std Deviation 61.5 H RDW Coeff of Allyson 17.3 H Plt Count 148 MPV 10.2 Sodium 143 Potassium 4.6 D Chloride 116 H Carbon Dioxide 24 Anion Gap 2.0 L BUN 38 H Creatinine 1.98 H Est Cr Clr Drug Dosing 22.2 Est GFR ( Amer) 28.7 Est GFR (Non-Af Amer) 24.8 BUN/Creatinine Ratio 19.3 Glucose 136 H POC Glucose 147 H Calcium 9.1 Random Vancomycin 05/11/21 05/11/21 05/11/21 08:43 11:55 12:43 WBC RBC Hgb Hct MCV MCH MCHC RDW Std Deviation RDW Coeff of Allyson Plt Count MPV Sodium Potassium Chloride Carbon Dioxide Anion Gap BUN Creatinine Est Cr Clr Drug Dosing Est GFR ( Amer) Est GFR (Non-Af Amer) BUN/Creatinine Ratio Glucose POC Glucose 130 H 128 H Calcium Random Vancomycin 23.5 Medications Administered Current Inpatient Medications Albuterol (Albuterol Hfa 8 Gm Inhaler) 2 puffs INH Q6H PRN PRN Reason: Shortness Of Breath Stop: 06/05/21 15:09 Albuterol (Albut/Ipratrop 3mg/0.5mg Neb 3 Ml Vial) 3 ml NEB Q2R PRN PRN Reason: Dyspnea Stop: 06/07/21 12:25 Last Admin: 05/08/21 13:37 Dose: 3 ml Documented by: Atropine Sulfate (Atropine Sulfate 1% Op Soln 5 Ml Btl) 4 drops SL Q1H PRN PRN Reason: Secretions or pulm congestion Stop: 06/10/21 15:38 Glycopyrrolate (Glycopyrrolate 0.2 Mg/Ml Vial) 0.2 mg IV Q4H PRN PRN Reason: Secretions or Pulm Congestion Stop: 06/10/21 15:38 Lorazepam (Ativan) 0.5 mg in 1 mls @ 1 mls/min IV Q4H PRN PRN Reason: Anxiety/Agitation Stop: 06/10/21 15:38 Morphine Sulfate (Morphine Sulf/Nss) 250 mg in 250 mls @ 1 mls/hr IV .Q96H DONA; Protocol Stop: 05/25/21 15:44 Miscellaneous (Azelastine 137 Mcg (0.1 %) Zenia ~ Order Awaiting Action) 1 ea N/A QS DONA Stop: 06/05/21 15:59 Last Admin: 05/11/21 07:02 Dose: Not Given Documented by: Miscellaneous (Stat Iv Infusion Titration Per Protocol) 1 ea N/A NOW STA Stop: 05/11/21 15:40 Miscellaneous (Check Scopolamine Patch Placement) 1 ea N/A QS DONA Stop: 06/10/21 15:59 Miscellaneous (Remove Transderm-Scop Patch) 1 ea N/A Q72H DONA Stop: 06/10/21 15:44 Ondansetron HCl (Ondansetron Inj 2 Mg/Ml 2 Ml Vial) 4 mg IV Q4H PRN PRN Reason: Nausea Stop: 06/08/21 20:20 Last Admin: 05/09/21 20:30 Dose: 4 mg Documented by: Ondansetron HCl (Ondansetron Inj 2 Mg/Ml 2 Ml Vial) 4 mg IV Q4H PRN PRN Reason: Nausea And Vomiting Stop: 06/10/21 15:38 Petrolatum (Butt Paste (Zinc Oxide 16%) 171 Appln/57 Gm Jar) 1 appln EXT BID [facility] Stop: 06/05/21 20:59 Last Admin: 05/11/21 07:36 Dose: 1 appln Documented by: Scopolamine (Scopolamine 1 Mg Tdsy) 1 mg TD Q72H [facility] Stop: 06/10/21 15:44 Sterile Water (Tube Feeding Water Flush) 30 ml NG Q4H [facility] Stop: 06/07/21 12:59 Last Admin: 05/11/21 12:36 Dose: 30 ml Documented by: PG Care Time/CCT Total # of Minutes Spent Total Time Spent: 45 Total Time Spent with Patient: Total time spent is greater than 50% in coordination of care (as documented) at patient's floor/unit and/or counseling patient: 30 minutes with family 15 minutes on chart review, exam, documentation Coding Level of Care Code 67634 Subseq Hosp Care Lvl 3 (25 - SIGNIFICANT, SEPARATELY IDENTIFIABLE ) Diagnoses Goals of care, counseling/discussion Z71.89 Acute respiratory failure with hypoxia J96.01 Altered mental status R41.0 Altered mental status type: delirium Acute kidney injury N17.9 UTI (urinary tract infection) N30.00 Hematuria presence: without hematuria Urinary tract infection type: acute cystitis Pneumonia J18.9 Dysphagia R13.10 Diabetes mellitus with diabetic polyneuropathy E11.42 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: unspecified alf insulin use status Diabetes mellitus type: type 2 Benign essential hypertension I10 Severe sepsis A41.9; R65.20 Oligouria R34 Liver metastases C78.7 (1) UTI (urinary tract infection) Hematuria presence: without hematuria Urinary tract infection type: acute cystitis Qualified Code(s): N30.00 - Acute cystitis without hematuria (2) Diabetes mellitus with diabetic polyneuropathy Diabetes mellitus alf insulin use: 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
[2021-05-11] MEDS ORDERED: MoRPHine SULF/NSS 250 MG/250 ML BTL IV SCH (15:45)
[2021-05-11] MEDS ORDERED: SCOPOLAMINE 1 MG TDSY TD SCH (15:45)
[2021-05-11] MEDS ORDERED: CHECK SCOPOLAMINE PATCH PLACEMENT SCH (16:00)
[2021-05-11] MEDS ORDERED: MoRPHine SULFATE 2 MG/ML CARP IV STA (16:17)
[2021-05-11] MEDS ORDERED: VANCOMYCIN HCL 750 MG in SODIUM CHLORIDE 0.9% 250 ML IV ONE (21:00)
--- NOTE | 2021-05-12 02:24 | Death Pronouncement Note ---
Date of Service May 12, 2021 Pronouncement Note Admission Date Admission Date: May 06, 2021 I was called to bedside by nursing to pronounce . Time of was 1:45 am. On my exam, pupillary responses were absent. There was no pulse or active respirations. I attempted to notify family, however a non-personalized voicemail picked up twice at given number. Nursing offered to try family again in a short period of time. Contributing Factors (1) Goals of care, counseling/discussion: (2) Acute respiratory failure with hypoxia: (3) Altered mental status: (4) Acute kidney injury: (5) UTI (urinary tract infection): (6) Pneumonia: (7) Dysphagia: (8) Diabetes mellitus with diabetic polyneuropathy: (9) Benign essential hypertension: (10) Severe sepsis: (11) Oligouria: (12) Liver metastases: Additional Data Attending physician: Herminio Murphy DO Resident Activity Tracking Resident Involvement: Resident Care Provided Care Provided: Adult Hospital Medicine
--- NOTE | 2021-05-17 11:23 | Discharge Summary ---
Date of Service May 12, 2021 Admission HPI Per Admitting Provider This is a 70-year-old female with past medical history of recent cholangitis, discharged from [facility] that presents today with confusion and dysphagia. Patient cannot provide any history. at bedside and is very pleasant but has limited insight in the patient's medical problems. tells me that the patient was the patient had a [facility] on . At that time she had been admitted with severe sepsis, found to have E. coli/Klebsiella bacteremia. Patient received a full course of Rocephin. At that time, patient had a reported coffee-ground emesis. Work-up for this included an ERCP performed in 04/23, I recommended an EUS approximate 2 weeks after the procedure. There documentation notes some "abnormal cells ". Patient was subsequent discharged home. tells me that the patient was home on 04/28 but had 2 episodes of falls that day. She did seem to be mildly confused at that time. He called EMS but the patient refused to be transported to the hospital at that time. She spent the night sitting on the couch. The next day she told her showed she did in fact need to go to the hospital. At that time, she was transferred to [facility] for rehab. I do not have any documentation of that ER visit I suspect it was not our facility. Patient was being treated at [facility]. Her EUS was scheduled for today and she was kept n.p.o. the night before. The physician at [facility] noted that the patient seemed more confused. Her speech was garbled which she felt was a new finding, although the tells me that her speech has been gradually worsen ing since her fall with EMS as described above. In addition, she had trouble swallowing any food or liquids over the past 2 days. Because of her multiple medical issues, it was decided the US will be held and the patient be transported to our facility for further evaluation. At our hospital, she was found to be of very confused. She is alert and she does speak and gesture, but she does not follow commands and she is unintelligible. On work-up, she was found to be mildly hypotensive with a blood pressure in the high 90s. She was hypoglycemic, likely secondary to her n.p.o. status for this procedure. There is also question of UTI versus possible pneumonia on imaging. CT scan of the brain was normal. Patient is now being admitted for further work-up and treatment of her multiple medical problems. Principal Diagnosis Multifocal pneumonia Discharge Exam no pulse, no respirations, no heart sounds, no breath sounds, pupils fixed, unresponsive Discharge Data Allergies Allergy/AdvReac Type Severity Reaction Status Date / Time carbamazepine [From Tegretol] AdvReac sleepy anf Verified 05/06/21 08:20 floaty Consultations 05/06/21 15:10 Consult Gastroenterology Routine 05/07/21 14:15 Consult Nephrology Routine Ordered Studies 05/06/21 08:04 CT head/brain wo con Stat 05/06/21 15:10 CT Abd and Pelvis [CT abd pelvis wo con] Stat CT chest diagnostic wo con Stat 05/07/21 15:10 MR brain wo con Routine 05/09/21 00:00 US duplex portal hepatic veins Routine Hospital Course (1) Goals of care, counseling/discussion: spent 30 minutes with the family in two separate visits on 05/11 discussed grave prognosis, patient is dying, has suspected metastatic cancer likeliest cause of encephalopathy is hepatic with elevated ammonia really impossible to treat, has not improved with Rifaximin and Lactulose did not help either plus she has wounds on her sacrum family in agreement to transition to [employer] stop all medications start on Morphine drip, use Ativan PRN Scopolamine patch, Atropine drops, Glycopyrrolate (patient has a lot of secretions) offered empathy, ordered bereavement tray, family can stay with patient at the bedside patient peacefully in the public health assistant on 05/12/21 family notified by night resident (2) Pneumonia: multifocal pneumonia, suspect aspiration from ongoing encephalopathy Chest x-ray showing bilateral airspace opacities treated with Vanco and Cefepime (3) Acute respiratory failure with hypoxia: CXR with edema, effusions and bilateral opacities consistent with pneumonia treated with Lasix 40mg IV qAM to help with urine output, likely has CKD stage IV she is DNR/DNI, provide as much support as possible but family understands grave prognosis (4) Altered mental status: Suspect this is multifactorial as there are multiple other medical issues present that would contribute to this could be related to infection, continue Vanco and Cefepime could be related to KANWAL, Cr is 1.9, appreciate nephrology consultation could be related to hepatic encephalopathy given her cirrhosis, Rifaximin BID, Lactulose via NG tube, ammonia going up at 56 when last checked despite treatment MRI brain negative for stroke, bleed, tumor no real improvement for 4 days family set short term goal of seeing if her mental status will improve over the weekend mental status did not improve, change to [employer] (5) Acute kidney injury: May be secondary to prerenal azotemia/dehydration, most likely due to sepsis, ATN stopped fluids on 05/08 given volume overload on CXR and worsening respiratory status treat NAGMA appreciate nephrology consult michele in place for accurate UO measurements making urine, she is non-oliguric (6) UTI (urinary tract infection): urine culture with Klebsiella, sensitive to Cefepime but dose dependent, d/w pharmacy (7) Dysphagia: Patient has recent ERCP with stent placement. Reported that time notes narrowing in the lower third of the main bile duct that was concerning for possible underlying neoplasm Will keep n.p.o. for now NGT in place for tube feeds while encephalopathic, will pull NG tube with comfort as goal (8) Diabetes mellitus with diabetic polyneuropathy: Will place patient on a low sliding scale only for now Keep n.p.o. secondary to reported dysphagia (9) Benign essential hypertension: BP coming up now that she is volume resuscitated use Lasix to help make urine (10) Severe sepsis: due to UTI, possible pneumonia vitals stable but with encephalopathy has renal failure and respiratory failure as well as cirrhosis poor prognosis (11) Oligouria: Lasix 40mg IV daily (12) Liver metastases: notes lesions on CT consistent with possible liver mets fits with possible malignancy in common bile duct will discuss further with GI, they have plans for EUS and biopsy as outpatient discussed the possible malignancy her family they agree she is in no condition for EUS and biopsy and that she could not go through any type of treatment Total Time Total Time Spent Total Time Spent (In Minutes): 10 Discharge Plan Discharge Items Patient Disposition: Coding Level of Care Code D/C Day Management <30 mins Diagnoses Goals of care, counseling/discussion Z71.89 Pneumonia J18.9 Acute respiratory failure with hypoxia J96.01 Altered mental status R41.0 Altered mental status type: delirium Acute kidney injury N17.9 UTI (urinary tract infection) N30.00 Urinary tract infection type: acute cystitis Hematuria presence: without hematuria Dysphagia R13.10 Diabetes mellitus with diabetic polyneuropathy E11.42 Diabetes mellitus type: type 2 Diabetes mellitus jail insulin use: unspecified jail insulin use status Benign essential hypertension I10 Severe sepsis A41.9; R65.20 Oligouria R34 Liver metastases C78.7
== END 2021-05-12 07:00 | disposition expired | DRG 871 ==
LOC: ED 07:41 → SUATTDRO 11:32 → 2E 11:32